=== PATIENT | male | born 1965 | race Caucasian/White ===

== ENCOUNTER 2020-07-10 06:57 | Outpatient (REF) | payer BC, SELFPAY ==
[2020-07-10 11:45] LABS: Hematocrit 42.7 % (42-52); Hemoglobin 14.2 g/dl (14.0-18.0); Mean Corpuscular HGB Conc 33.3 g/dl (31.0-36.0); Mean Corpuscular Hemoglobin 31.1 pg (27.0-33.0); Mean Corpuscular Volume 93.6 fL (80-98); Platelet Count 254 X10*3/uL (160-400); Red Blood Count 4.56 X10*6/uL (4.60-5.80); Red Cell Distribution Width 12.5 % (11.0-16.0); White Blood Count 6.2 X10*3/uL (4.8-10.8)
[2020-07-10 12:27] LABS: Alanine Aminotransferase 21 U/L (0-40); Albumin Level 4.3 g/dL (3.5-5.0); Alkaline Phosphatase 62 U/L (39-117); Anion Gap 14 (12-20); Aspartate Amino Transferase 22 U/L (5-37); Bilirubin Total 0.6 mg/dL (0.0-1.0); Blood Urea Nitrogen 24 mg/dL (9-16); Calcium 9.1 mg/dL (8.4-10.2); Carbon Dioxide 27 mmol/L (22-29); Chloride 105 mmol/L (96-108); Cholesterol 232 mg/dL; Estimated Glomerular Filt Rate > 60; Glucose Fasting 81 mg/dL (60-99); HDL Cholesterol 64 mg/dL; LDL Cholesterol Calculated 152 mg/dl; Potassium 4.5 mmol/L (3.3-5.1); Sodium 141 mmol/L (135-145); Total Protein 6.6 g/dL (6.5-8.0); Triglycerides 81 mg/dL
[2020-07-10 12:28] LABS: Prostate Specific Antigen Scr 2.19 ng/mL (<0.05-4.0)
== END 2020-07-10 06:58 | disposition home or self-care (01) ==
LOC: HO.HMGCLDS 06:57
PROVIDERS: PCP Physician Assistant; Visit Provider Physician Assistant
DX: Z12.5 Encounter for screening for malignant neoplasm of prostate (principal); I10 Essential (primary) hypertension
CPT/HCPCS: 36415; 80053; 80061; 84153; 84443; 85027

== ENCOUNTER 2021-01-09 07:03 | Outpatient (REF) | payer BC, SELFPAY ==
[2021-01-09 11:22] LABS: Hemoglobin 14.3 g/dl (14.0-18.0); Mean Corpuscular HGB Conc 33.3 g/dl (31.0-36.0); Mean Corpuscular Hemoglobin 31.2 pg (27.0-33.0); Mean Corpuscular Volume 93.7 fL (80.0-98.0); Mean Platelet Volume 11.2 fL (9.4-12.4); Platelet Count 282 X10*3/uL (160-400); Red Blood Count 4.59 X10*6/uL (4.60-5.80); Red Cell Distribution Width 12.6 % (11.0-16.0); White Blood Count 6.6 X10*3/uL (4.8-10.8)
[2021-01-09 11:41] LABS: Estimated Average Glucose 105 mg/dL; Hemoglobin A1c % 5.3 %
[2021-01-09 12:10] LABS: Alanine Aminotransferase 22 U/L (0-40); Albumin Level 4.3 g/dL (3.5-5.0); Alkaline Phosphatase 64 U/L (39-117); Anion Gap 14 (12-20); Aspartate Amino Transferase 20 U/L (5-37); Bilirubin Total 0.5 mg/dL (0.0-1.0); Blood Urea Nitrogen 29 mg/dL (9-16); Calcium 9.4 mg/dL (8.4-10.2); Carbon Dioxide 27 mmol/L (22-29); Chloride 104 mmol/L (96-108); Cholesterol 241 mg/dL; Creatinine Urine 112.99 mg/dL; Estimated Glomerular Filt Rate 58; Glucose Fasting 84 mg/dL (60-99); HDL Cholesterol 65 mg/dL; LDL Cholesterol Calculated 159 mg/dl; Microalbumin Urine < 5.0 mg/L; Potassium 4.8 mmol/L (3.3-5.1); Sodium 140 mmol/L (135-145); Total Protein 6.8 g/dL (6.5-8.0); Triglycerides 87 mg/dL
== END 2021-01-09 07:04 | disposition home or self-care (01) ==
LOC: HO.HMGCLDS 07:03
PROVIDERS: PCP Physician Assistant; Visit Provider Physician Assistant
DX: I10 Essential (primary) hypertension (principal)
CPT/HCPCS: 36415; 80053; 80061; 82043; 83036; 85027

== ENCOUNTER 2021-02-07 09:32 | Outpatient (REF) | payer BC, SELFPAY ==
--- NOTE | ~2021-02-07 | MR_ITS ---
EXAMINATION: MR BRAIN WITHOUT AND WITH CONTRAST CLINICAL INFORMATION: Encephalopathy. White matter change. Visual disturbance. COMPARISON: Head CT 09/21/2019. Brain MRI 06/14/2009. TECHNIQUE: Multiplanar, multisequence imaging of the brain was performed before and after the intravenous administration of 9 mL of Gadavist. FINDINGS: There is no acute infarction, mass, hemorrhage, or extra-axial collection. No abnormal or unexpected intracranial enhancement is seen. The ventricles, sulci, and basilar cisterns are normal in size and configuration. No white matter signal abnormality is seen. The posterior fossa structures are unremarkable. No cerebellopontine angle lesion is seen. The flow voids of the major intracranial arteries appear intact. The bones and extracranial soft tissues are within normal limits. MR/MR head/brain wo/w con IMPRESSION: No mass lesion, acute infarction, or abnormal intracranial enhancement.
== END 2021-02-07 09:33 | disposition home or self-care (01) ==
LOC: HO.MRI 09:32
PROVIDERS: PCP Physician Assistant; Visit Provider Psychiatry & Neurology Neurology
DX: G93.40 Encephalopathy, unspecified (principal); G93.49 Other encephalopathy
CPT/HCPCS: 70553; A9585

== ENCOUNTER 2021-03-04 12:42 | Outpatient (REF) | payer BC, SELFPAY ==
[2021-03-04 14:10] LABS: Estimated Average Glucose 108 mg/dL; Hematocrit 42.5 % (42.0-52.0); Hemoglobin 14.4 g/dl (14.0-18.0); Hemoglobin A1c % 5.4 %; Mean Corpuscular HGB Conc 33.9 g/dl (31.0-36.0); Mean Corpuscular Hemoglobin 31.3 pg (27.0-33.0); Mean Corpuscular Volume 92.4 fL (80.0-98.0); Platelet Count 293 X10*3/uL (160-400); Red Cell Distribution Width 12.5 % (11.0-16.0); White Blood Count 6.6 X10*3/uL (4.8-10.8)
[2021-03-04 14:28] LABS: Alanine Aminotransferase 21 U/L (0-40); Albumin Level 4.3 g/dL (3.5-5.0); Alkaline Phosphatase 72 U/L (39-117); Anion Gap 12 (12-20); Aspartate Amino Transferase 19 U/L (5-37); Bilirubin Total 0.6 mg/dL (0.0-1.0); Blood Urea Nitrogen 15 mg/dL (9-16); Calcium 9.7 mg/dL (8.4-10.2); Carbon Dioxide 29 mmol/L (22-29); Chloride 103 mmol/L (96-108); Cholesterol 212 mg/dL; Estimated Glomerular Filt Rate > 60; Glucose Fasting 93 mg/dL (60-99); HDL Cholesterol 58 mg/dL; LDL Cholesterol Calculated 135 mg/dl; Potassium 4.7 mmol/L (3.3-5.1); Sodium 139 mmol/L (135-145); Total Protein 6.8 g/dL (6.5-8.0); Triglycerides 97 mg/dL
[2021-03-04 14:38] LABS: TSH reflex Free T4 1.05 uIU/mL (0.32-4.0)
== END 2021-03-04 12:43 | disposition home or self-care (01) ==
LOC: HO.HMGCX 12:42
PROVIDERS: PCP Physician Assistant; Visit Provider Physician Assistant
DX: I10 Essential (primary) hypertension (principal); K40.90 Unilateral inguinal hernia, without obstruction or gangrene, not specified as recurrent; E78.9 Disorder of lipoprotein metabolism, unspecified
CPT/HCPCS: 36415; 80048; 80053; 80061; 83036; 84443; 85027

== ENCOUNTER → 2021-03-11 13:47 | Outpatient (BNVA) | payer BC, SELFPAY | PROVIDERS: PCP Physician Assistant; Referring Provider Physician Assistant; Visit Provider Surgery ==

== ENCOUNTER 2021-03-22 07:11 | Outpatient (REF) | payer BC, SELFPAY ==
--- NOTE | ~2021-03-22 | CT_ITS ---
EXAMINATION: CT ABDOMEN AND PELVIS WITHOUT CONTRAST CLINICAL INFORMATION: Left lower quadrant pain COMPARISON: Renal ultrasound June 2009 TECHNIQUE: Multidetector volumetric imaging was performed from the superior aspect of the liver through the pubic symphysis. Sagittal and coronal reformatted images were obtained on the technologist's workstation. This CT examination was performed using dose optimization techniques as appropriate, variously including the following: *Automated exposure control *Adjustment of mA and/or kV according to patient size (this includes techniques or standardized protocols for targeted exams where dose is matched to indication/reason for exam; i.e. extremities or head) *Use of iterative reconstruction technique DLP: 462 mGy-cm FINDINGS: LUNG BASES: The visualized lung bases are unremarkable. LIVER, GALLBLADDER, AND BILIARY TREE: The liver is normal in size, shape, and attenuation. No focal hepatic lesion or biliary ductal dilatation is present. The gallbladder is unremarkable with no evidence of radiopaque gallstones, gallbladder wall thickening, or obvious pericholecystic inflammatory changes. PANCREAS: Unremarkable. SPLEEN: Unremarkable. ADRENAL GLANDS: Unremarkable. KIDNEYS AND URETERS: There are 2 left renal cysts versus bilobed cyst in the upper pole. Measured as 2 cysts, these measure 5 cm and 5 x 6 cm. These demonstrate peripheral wall calcification. This measured 8 x 5.4 x 5.8 cm on June 2009 and renal ultrasound and is probably not appreciably changed in size. This is incompletely characterized without IV contrast Again may represent a Bosniak type II cyst. The kidneys are normal in size, shape, and attenuation. No hydronephrosis, hydroureter, or calculi seen. No perinephric stranding. BLADDER: Unremarkable. GASTROINTESTINAL TRACT: There is stool throughout the colon questionable for constipation. The small and large bowel are otherwise unremarkable. The appendix is unremarkable. ABDOMINAL WALL: No significant hernia is appreciated. LYMPH NODES: Normal. VASCULAR: Unremarkable. PELVIC VISCERA: Unremarkable. OSSEOUS STRUCTURES: There are mild degenerative changes of the spine. CT/CT abdomen pelvis wo con IMPRESSION: Two 5 and 5 x 6 cm minimally complex left renal cysts versus a single bilobed cyst. This is incompletely characterized but probably not appreciably changed from June 2009 renal ultrasound. Fleischner guidelines were followed.
== END 2021-03-22 07:12 | disposition home or self-care (01) ==
LOC: HO.CT 07:11
PROVIDERS: Visit Provider Surgery
DX: R10.32 Left lower quadrant pain (principal)
CPT/HCPCS: 74176

== ENCOUNTER → 2021-03-27 10:00 | Outpatient (BNVA) | payer BC, SELFPAY | PROVIDERS: PCP Physician Assistant; Referring Provider Physician Assistant; Visit Provider Surgery ==

== ENCOUNTER 2021-07-23 06:34 | Outpatient (REF) | payer BC, SELFPAY ==
[2021-07-23 11:57] LABS: Hematocrit 41.2 % (42.0-52.0); Hemoglobin 13.7 g/dl (14.0-18.0); Mean Corpuscular HGB Conc 33.3 g/dl (31.0-36.0); Mean Corpuscular Hemoglobin 31.4 pg (27.0-33.0); Mean Corpuscular Volume 94.5 fL (80.0-98.0); Mean Platelet Volume 11.4 fL (9.4-12.4); Platelet Count 243 X10*3/uL (160-400); Red Blood Count 4.36 X10*6/uL (4.60-5.80); Red Cell Distribution Width 12.6 % (11.0-16.0); White Blood Count 5.8 X10*3/uL (4.8-10.8)
[2021-07-23 12:24] LABS: Alanine Aminotransferase 24 U/L (0-40); Albumin Level 4.1 g/dL (3.5-5.0); Alkaline Phosphatase 67 U/L (39-117); Anion Gap 10 (12-20); Aspartate Amino Transferase 22 U/L (5-37); Bilirubin Total 0.4 mg/dL (0.0-1.0); Blood Urea Nitrogen 18 mg/dL (9-16); Calcium 9.5 mg/dL (8.4-10.2); Carbon Dioxide 29 mmol/L (22-29); Chloride 104 mmol/L (96-108); Cholesterol 233 mg/dL; Estimated Glomerular Filt Rate > 60; Glucose Fasting 96 mg/dL (60-99); HDL Cholesterol 68 mg/dL; LDL Cholesterol Calculated 149 mg/dl; Potassium 4.2 mmol/L (3.3-5.1); Sodium 139 mmol/L (135-145); Total Protein 6.4 g/dL (6.5-8.0); Triglycerides 81 mg/dL
[2021-07-23 12:42] LABS: Creatinine Urine 142.02 mg/dL; Microalbumin Urine < 5.0 mg/L
[2021-07-23 12:46] LABS: TSH reflex Free T4 1.95 uIU/mL (0.32-4.0)
== END 2021-07-23 06:35 | disposition home or self-care (01) ==
LOC: HO.HMGCLDS 06:34
PROVIDERS: Visit Provider Physician Assistant
DX: I10 Essential (primary) hypertension (principal)
CPT/HCPCS: 36415; 80053; 80061; 82043; 84443; 85027

== ENCOUNTER 2022-01-14 07:27 | Outpatient (REF) | payer BC, SELFPAY ==
[2022-01-14 11:35] LABS: Hematocrit 43.1 % (42.0-52.0); Hemoglobin 14.2 g/dl (14.0-18.0); Mean Corpuscular HGB Conc 32.9 g/dl (31.0-36.0); Mean Corpuscular Hemoglobin 30.9 pg (27.0-33.0); Mean Corpuscular Volume 93.7 fL (80.0-98.0); Mean Platelet Volume 11.1 fL (9.4-12.4); Platelet Count 271 X10*3/uL (160-400); Red Cell Distribution Width 12.5 % (11.0-16.0); White Blood Count 5.7 X10*3/uL (4.8-10.8)
[2022-01-14 13:49] LABS: Alanine Aminotransferase 26 U/L (0-40); Albumin Level 4.3 g/dL (3.5-5.0); Alkaline Phosphatase 62 U/L (39-117); Anion Gap 9 (12-20); Aspartate Amino Transferase 21 U/L (5-37); Bilirubin Total 0.5 mg/dL (0.0-1.0); Blood Urea Nitrogen 20 mg/dL (9-16); Calcium 9.5 mg/dL (8.4-10.2); Carbon Dioxide 32 mmol/L (22-29); Chloride 104 mmol/L (96-108); Cholesterol 243 mg/dL; Estimated Glomerular Filt Rate > 60; Glucose Fasting 95 mg/dL (60-99); HDL Cholesterol 69 mg/dL; LDL Cholesterol Calculated 162 mg/dl; Potassium 4.4 mmol/L (3.3-5.1); Prostate Specific Antigen Scr 2.08 ng/mL (<0.05-4.0); Sodium 141 mmol/L (135-145); TSH reflex Free T4 2.34 uIU/mL (0.32-4.0); Total Protein 6.5 g/dL (6.5-8.0); Triglycerides 63 mg/dL
== END 2022-01-14 07:28 | disposition home or self-care (01) ==
LOC: HO.HMGCLDS 07:27
PROVIDERS: PCP Physician Assistant; Visit Provider Physician Assistant
DX: Z12.5 Encounter for screening for malignant neoplasm of prostate (principal); I10 Essential (primary) hypertension; E78.9 Disorder of lipoprotein metabolism, unspecified
CPT/HCPCS: 36415; 80053; 80061; 84153; 84443; 85027

== ENCOUNTER 2022-08-26 07:41 | Outpatient (REF) | payer BC, SELFPAY ==
[2022-08-26 11:56] LABS: Hematocrit 43.7 % (42.0-52.0); Hemoglobin 14.3 g/dl (14.0-18.0); Mean Corpuscular HGB Conc 32.7 g/dl (31.0-36.0); Mean Corpuscular Volume 94.6 fL (80.0-98.0); Mean Platelet Volume 11.1 fL (9.4-12.4); Platelet Count 279 X10*3/uL (160-400); Red Blood Count 4.62 X10*6/uL (4.60-5.80); Red Cell Distribution Width 12.6 % (11.0-16.0)
[2022-08-26 12:01] LABS: Creatinine Urine 131.66 mg/dL; Microalbumin Urine < 5.0 mg/L
[2022-08-26 12:28] LABS: Alanine Aminotransferase 29 U/L (0-40); Albumin Level 4.2 g/dL (3.5-5.0); Alkaline Phosphatase 56 U/L (39-117); Anion Gap 10 (12-20); Aspartate Amino Transferase 24 U/L (5-37); Bilirubin Total 0.5 mg/dL (0.0-1.0); Blood Urea Nitrogen 17 mg/dL (9-16); Calcium 9.5 mg/dL (8.4-10.2); Carbon Dioxide 29 mmol/L (22-29); Chloride 105 mmol/L (96-108); Cholesterol 223 mg/dL; Estimated Glomerular Filt Rate > 60; Glucose Fasting 94 mg/dL (60-99); HDL Cholesterol 72 mg/dL; LDL Cholesterol Calculated 132 mg/dl; Potassium 4.1 mmol/L (3.3-5.1); Sodium 140 mmol/L (135-145); TSH reflex Free T4 1.64 uIU/mL (0.32-4.0); Total Protein 6.8 g/dL (6.5-8.0); Triglycerides 95 mg/dL
== END 2022-08-26 07:42 | disposition home or self-care (01) ==
LOC: HO.HMGCLDS 07:41
PROVIDERS: PCP Physician Assistant; Visit Provider Physician Assistant
DX: I10 Essential (primary) hypertension (principal); E78.2 Mixed hyperlipidemia; Z12.5 Encounter for screening for malignant neoplasm of prostate
CPT/HCPCS: 36415; 80053; 80061; 82043; 84153; 84443; 85027

== ENCOUNTER 2022-09-29 07:14 | Outpatient (AMB) | payer BC, SELFPAY ==
--- NOTE | 2022-09-29 07:23 | MHC.PC.OV ---
Vital Signs 09/29/22 07:24 Height 5 ft 10 in Weight 200 lb BMI 28.7 BP 116/68 Blood Pressure Location Lt brachial Position Sitting Pulse 59 Pulse Source Pulse Oximeter Pulse Oximetry (%) 98 Oxygen Delivery Method Room Air Intake Visit Reasons: PHY Allergies penicillin V Allergy (Unknown, Verified 09/29/22 07:43) hives No Known Allergies Allergy (Verified 09/29/22 07:43) Medication List - Last Reconciled 09/29/22 by JENNIFER Fajardo bupropion HCl (Wellbutrin SR) 200 mg PO DAILY 90 days lisinopril 10 mg PO DAILY lorazepam 0.5 mg PO DAILY 4 days propranolol 10 mg PO BID 7 days simvastatin 10 mg PO DAILY 30 days solifenacin 5 mg PO DAILY Tobacco use date assessed: 09/29/22 Dental Screening Dental Screen Date: 09/29/22 Did you have a dental visit in the last 12 months?: Yes Did you have a dental problem in the last 6 months where you did not have access to dental care?: No Was dental information given to patient?: Patient has dentist HPI HPI Comments History of Present Illness Details 57-year-old male past medical history significant for hyperlipidemia, ADD, generalized anxiety disorder, hypertension and spastic bladder. Patient of Aryan Trevino last seen in January. Patient presents today for physical exam. Colonoscopy: Completed May [address] Parekh; showed tubular adenoma. Recommended 5 year follow-up. Due May 2023 Eye exam: 2021 Patient up to date on Recommended immunizations [facility] Medical History Borderline high cholesterol AMEYA (generalized anxiety disorder) HTN (hypertension) Left groin pain Family History Mother Lung cancer Social History (Updated 09/29/22 @ 07:42 by JENNIFER Fajardo) Housing: House Alcohol intake: current Alcohol intake frequency: a few times a week Alcohol type: wine Patient Tobacco Use Status: Never used Tobacco e-Cigarette/Vaping Use: Never Used Second Hand Smoke Exposure: No service: No Current occupational status: employed Current occupation: [employer] Cognitive needs: No Hearing needs: No Vision needs: No Questionnaire PHQ-9 Over the last 2 weeks, how often have you been bothered by any of the following problems? 1. Little interest or pleasure in doing things: not at all 2. Feeling down, depressed, or hopeless: not at all 3. Trouble falling or staying asleep, or sleeping too much: not at all 4. Feeling tired or having little energy: not at all 5. Poor appetite or overeating: not at all 6. Feeling bad about yourself - or that you are a failure or have let yourself or your family down: not at all 7. Trouble concentrating on things, such as reading the newspaper or watching television: not at all 8. Moving or speaking so slowly that other people could have noticed. Or the opposite - being so fidgety or restless that you have been moving around a lot more than usual: not at all 9. Thoughts that you would be better off or of hurting yourself in some way: not at all Total score: 0 Depression Screening Interpretation: Negative 37050 - PHQ-9 Billing: Yes Source: Developed by Drs. Wes Dumont, Ruby Negrete, Axel Watts and colleagues, with an educational fortino from [employer]. Thrive Questionnaire Date Thrive assessed: 09/29/22 I am a: Patient What is your living situation today?: I have a steady place to live Within the past 12 months, did the food you bought not last and you didn't have the money to get more?: Never true Within the past 12 months, did you worry whether your food would run out before you got money to buy more?: Never true Do you have trouble paying for medicines?: No Do you have trouble getting transportation to medical appointments?: No Do you have trouble paying your heating and electricity bill?: No Do you have trouble taking care of your child, family member or friend?: No Do you have trouble with day-to-day activities such as bathing, preparing meals, shopping, managing finances, etc.?: No Are you currently unemployed and looking for a job?: No Are you interested in more education?: No Currently or been in a relationship where the following occur: no concerns reported AUDIT C Alcohol Use Questionnaire (AUDIT-C) 1. How often do you have a drink containing alcohol?: Never Total Score: 0 Score Reviewed/Action Taken: Yes AMEYA-7 AMB Questionnaire AMEYA-7 Date AMEYA - 7 assessed: 09/29/22 Feeling nervous, anxious, or on edge: 0 = Not at all Not being able to stop or control worryin = Not at all Worrying too much about different things: 0 = Not at all Trouble relaxin = Not at all Being so restless that it is hard to sit still: 0 = Not at all Becoming easily annoyed or irritable: 0 = Not at all Feeling afraid as if something awful might happen: 0 = Not at all Total AMEYA-7 score (0-4 normal; 5-9 mild; 10-14 moderate; 15-21 severe): 0 Source: Developed by Drs. Wes Dumont, Ruby Negrete, Axel Watts and colleagues, with an educational fortino from [employer]. AMEYA-7 Assessment Billing AMEYA-7 Assessment Tool: AMEYA-7 Assessment 34472 Review of Systems Const Denies chills, Denies fatigue, Denies fever(s) and Denies poor appetite Eyes Denies no additional complaints ENT Reports Normal hearing present Card Denies chest pain, Denies syncope, Denies rapid heart rate and Denies dyspnea Resp Denies cough and Denies dyspnea GI Denies change in stool character, Denies constipation, Denies diarrhea, Denies nausea and Denies vomiting Denies dysuria, Denies urinary frequency and Denies urinary urgency Neuro Reports Normal hearing present, Denies confusion and Denies syncope Psych Denies confusion Endo Denies fatigue Physical exam (Primary Care) Vital Signs: Last Vital Signs Pulse 59 09/29/22 07:24 BP 116/68 09/29/22 07:24 Pulse Ox 98 09/29/22 07:24 Oxygen Delivery Method Room Air 09/29/22 07:24 BMI result Body Mass Index 28.7 Tobacco/Smoking Status: Tobacco use Status Tobacco use date assessed 09/29/22 09/29/22 07:27 Patient Tobacco Use Status Never used Tobacco 09/29/22 07:27 e-Cigarette/Vaping Use Never Used 09/29/22 07:27 PHQ-9: PHQ-9 Score PHQ-9: Total score 0 09/29/22 07:37 Depression Screening Interpretation: Negative Thrive Assessment: Date of Thrive Assessment Date Thrive assessed 09/29/22 09/29/22 07:27 Currently or been in a relationship where the following occur: no concerns reported Const General: No confusion Orientation/consciousness: No confusion HENMT Head: Yes normocephalic and Yes atraumatic Ears: external ears normal and TM's normal bilaterally General nose exam: Normal external nose present and Normal nasal mucous membranes and turbinates present Face and sinus: Yes normal facial exam and Yes sinuses nontender Mouth: moist mucous membranes Throat: Yes tonsils normal Eyes Conjunctivae: conjunctivae normal Sclerae: sclerae normal Pupils: Equal, round and reactive pupils present and Pupils normal by confrontation EOM: EOMs intact bilaterally Direct Ophthalmoscopy: normal light reflex Neck Neck: Yes no lymphadenopathy and Yes supple Thyroid: Thyroid normal Chest Chest palpation & inspection: normal inspection of the chest Resp Effort & Inspection: normal respiratory effort Auscultation: clear to auscultation bilaterally, no crackles, no rhonchi and no wheezes Cardio Rate: regular rate Rhythm: regular rhythm Peripheral pulses: radial pulses present and dorsalis pedis present GI Inspection: Yes normal to inspection Palpation (GI): Soft to palpation, nontender and No hepatosplenomegaly present Auscultation: normoactive bowel sounds Skin General skin exam: no rashes or lesions noted Neuro General: No confusion Cranial nerves: Yes Equal, round and reactive pupils present and Yes Normal hearing present Cognition (Neuro): normal cognition Gait exam (Neuro): Normal gait present Motor exam (neuro): 5/5 motor strength present throughout Deep tendon reflexes (DTR's): Right brachioradialis reflex intensity grade: 2+, Left brachioradialis reflex intensity grade: 2+, Right patellar reflex intensity grade: 2+ and Left patellar reflex intensity grade: 2+ Extrem General: No edema Assessment and Plan Assessment & Plan (1) Annual physical exam: Code(s): Z00.00 - Encounter for general adult medical examination without abnormal findings Plan: Follow up in 1 year. (2) HLD (hyperlipidemia): Code(s): E78.5 - Hyperlipidemia, unspecified Qualifiers: Hyperlipidemia type: mixed hyperlipidemia Qualified Code(s): E78.2 - Mixed hyperlipidemia Plan: LDL 132, goal < 130. Continue on simvastatin 10mg daily Avoid fried foods, chicken skin, eggs, butter,margarine, pastries and? red meat. (3) AMEYA (generalized anxiety disorder): Code(s): F41.1 - Generalized anxiety disorder Plan: Continue on Wellbutrin 200mg Daily. (4) HTN (hypertension): Code(s): I10 - Essential (primary) hypertension Qualifiers: Hypertension type: essential hypertension Qualified Code(s): I10 - Essential (primary) hypertension Plan: Continue on lisinopril 10mg daily. Blood pressure below goal today 116/68. Follow low salt diet and excercise. (5) Spastic bladder: Code(s): N32.89 - Other specified disorders of bladder Plan: Continue on Solifenacin. Plan Follow up in 3 months Coding Level of Care Code Est Pt Prev Care 40-64y(27844) Diagnoses Annual physical exam Z00.00 HLD (hyperlipidemia) E78.2 Hyperlipidemia type: mixed hyperlipidemia AMEYA (generalized anxiety disorder) F41.1 HTN (hypertension) I10 Hypertension type: essential hypertension Spastic bladder N32.89 Additional Codes MAEYA-7 Assessment Billing - AMEYA-7 Assessment Tool: AMEYA-7 Assessment [id number] ([id number])
[2022-09-29 07:24] VITALS: BP 116/68; PULSE 59; O2SAT 98; BMI 28.7
== END 2022-09-29 07:54 | disposition home or self-care (01) ==
PROVIDERS: PCP Physician Assistant; Visit Provider Nurse Practitioner Family
DX: Z00.00 Encounter for general adult medical examination without abnormal findings (principal); E78.2 Mixed hyperlipidemia; F41.1 Generalized anxiety disorder; I10 Essential (primary) hypertension; N32.89 Other specified disorders of bladder
CPT/HCPCS: 99396

== ENCOUNTER 2022-12-29 06:34 | Outpatient (REF) | payer BC, SELFPAY ==
[2022-12-29 11:36] LABS: Hematocrit 43.4 % (42.0-52.0); Hemoglobin 14.3 g/dl (14.0-18.0); Mean Corpuscular HGB Conc 32.9 g/dl (31.0-36.0); Mean Corpuscular Volume 94.1 fL (80.0-98.0); Mean Platelet Volume 11.3 fL (9.4-12.4); Platelet Count 254 X10*3/uL (160-400); Red Blood Count 4.61 X10*6/uL (4.60-5.80); Red Cell Distribution Width 12.5 % (11.0-16.0); White Blood Count 5.9 X10*3/uL (4.8-10.8)
[2022-12-29 12:07] LABS: Creatinine Urine 112.06 mg/dL; Microalbumin Urine < 5.0 mg/L
[2022-12-29 12:33] LABS: Alanine Aminotransferase 30 U/L (0-40); Albumin Level 4.1 g/dL (3.5-5.0); Alkaline Phosphatase 62 U/L (39-117); Anion Gap 10 (12-20); Aspartate Amino Transferase 26 U/L (5-37); Bilirubin Total 0.5 mg/dL (0.0-1.0); Blood Urea Nitrogen 24 mg/dL (9-16); Calcium 9.3 mg/dL (8.4-10.2); Carbon Dioxide 28 mmol/L (22-29); Chloride 105 mmol/L (96-108); Cholesterol 193 mg/dL (<200); Estimated Glomerular Filt Rate > 60; Glucose Fasting 98 mg/dL (60-99); HDL Cholesterol 71 mg/dL (>40); LDL Cholesterol Calculated 107 mg/dL (<100); Potassium 4.4 mmol/L (3.3-5.1); Sodium 139 mmol/L (135-145); Total Protein 6.6 g/dL (6.5-8.0); Triglycerides 77 mg/dL (<150)
== END 2022-12-29 06:35 | disposition home or self-care (01) ==
LOC: HO.HMGCLDS 06:34
PROVIDERS: PCP Physician Assistant; Visit Provider Physician Assistant
DX: I10 Essential (primary) hypertension (principal); E78.2 Mixed hyperlipidemia
CPT/HCPCS: 36415; 80053; 80061; 82043; 82570; 85027

== ENCOUNTER 2022-12-31 07:57 | Outpatient (AMB) | payer BC, SELFPAY ==
[2022-12-31 08:10] VITALS: BP 116/80; PULSE 59; O2SAT 97; BMI 29.0
--- NOTE | 2022-12-31 08:10 | A.OFFPC_ITS ---
Vital Signs 12/31/22 08:10 Height 5 ft 10 in Weight 202 lb BMI 29.0 BP 116/80 Blood Pressure Location Lt brachial Position Sitting Pulse 59 Pulse Source Pulse Oximeter Pulse Oximetry (%) 97 Oxygen Delivery Method Room Air Intake Visit Reasons: HLD, HTN, Anxiety Strategy Consultant Required: No Accompanied by: Self / Same As Patient Allergies penicillin V Allergy (Unknown, Verified 12/31/22 08:27) hives No Known Allergies Allergy (Verified 12/31/22 08:27) Medication List - Last Reconciled 12/31/22 by Vignesh Trevino PA-C bupropion HCl (Wellbutrin SR) 200 mg PO DAILY 90 days lisinopril 10 mg PO DAILY lorazepam 0.5 mg PO DAILY 4 days propranolol 10 mg PO BID 7 days simvastatin 10 mg PO DAILY 30 days solifenacin 5 mg PO DAILY Tobacco use date assessed: 12/31/22 Dental Screening Dental Screen Date: 12/31/22 Did you have a dental visit in the last 12 months?: Yes Did you have a dental problem in the last 6 months where you did not have access to dental care?: No Was dental information given to patient?: Patient has dentist HPI HLD, HTN, Anxiety HPI Details Patient is a 57 year male here today for a follow-up visit.? Patient has a past history significant for hypertension , spastic bladder, generalized anxiety disorder. .. Hypertension:? Blood pressure today in office acceptable.? Continues on lisinopril 10 mg with good effect. .. Hyperlipidemia :? Has recently been started on simvastatin. Most recent labs showing much improved total cholesterol and LDL..? Patient reports he has been working on restrict his cholesterol in his diet. .. Anxiety/ adhd:? He reports he does not feel Wellbutrin is helpful for anxiety and ADHD. 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 He plans on weaning off of Wellbutrin. Was on Adderall in the past which was more helpful for his attention focus. Willing to restart low-dose 5 mg extended release Adderall to help him with his attention focus. .. Spastic bladder:? Has been stable with the use of solifenacin daily. Bladder spasms worsen with certain beverages. Laboratory Tests 08/26/22 08/26/22 12/29/22 07:44 07:44 06:56 RBC 4.61 Creatinine 1.13 Cholesterol 223 LDL Cholesterol, C alc 132 107 H Urine Microalbumin 12/29/22 12/29/22 06:56 06:56 RBC Creatinine Cholesterol 193 LDL Cholesterol, C alc Urine Microalbumin < 5.0 PFSH Medical History Borderline high cholesterol AMEYA (generalized anxiety disorder) HTN (hypertension) Left groin pain Family History Mother Lung cancer Housing: House Alcohol intake: current Alcohol intake frequency: a few times a week Alcohol type: wine Patient Tobacco Use Status: Never used Tobacco e-Cigarette/Vaping Use: Never Used Second Hand Smoke Exposure: No service: No Current occupational status: employed Current occupation: [employer] Cognitive needs: No Hearing needs: No Vision needs: No Questionnaire PHQ-9 Over the last 2 weeks, how often have you been bothered by any of the following problems? 1. Little interest or pleasure in doing things: not at all 2. Feeling down, depressed, or hopeless: not at all 3. Trouble falling or staying asleep, or sleeping too much: not at all 4. Feeling tired or having little energy: not at all 5. Poor appetite or overeating: not at all 6. Feeling bad about yourself - or that you are a failure or have let yourself or your family down: not at all 7. Trouble concentrating on things, such as reading the newspaper or watching te levision: not at all 8. Moving or speaking so slowly that other people could have noticed. Or the opposite - being so fidgety or restless that you have been moving around a lot more than usual: not at all 9. Thoughts that you would be better off or of hurting yourself in some way: not at all Total score: 0 Depression Screening Interpretation: Negative Depression Screening Done: Yes 23755 - PHQ-9 Billing: Yes Source: Developed by Drs. Wes Dumont, Ruby Negrete, Axel Watts and colleagues, with an educational fortino from [employer]. Thrive Questionnaire Date Thrive assessed: 12/31/22 I am a: Patient What is your living situation today?: I have a steady place to live Within the past 12 months, did the food you bought not last and you didn't have the money to get more?: Never true Within the past 12 months, did you worry whether your food would run out before you got money to buy more?: Never true Do you have trouble paying for medicines?: No Do you have trouble getting transportation to medical appointments?: No Do you have trouble paying your heating and electricity bill?: No Do you have trouble taking care of your child, family member or friend?: No Do you have trouble with day-to-day activities such as bathing, preparing meals, shopping, managing finances, etc.?: No Are you currently unemployed and looking for a job?: No Are you interested in more education?: No Please select the resources that you would like help with: None Currently or been in a relationship where the following occur: no concerns reported AUDIT C Alcohol Use Questionnaire (AUDIT-C) 1. How often do you have a drink containing alcohol?: Never Total Score: 0 Score Reviewed/Action Taken: Yes AMEYA-7 AMB Questionnaire AMEYA-7 Date AMEYA - 7 assessed: 12/31/22 Feeling nervous, anxious, or on edge: 0 = Not at all Not being able to stop or control worryin = Not at all Worrying too much about different things: 0 = Not at all Trouble relaxin = Not at all Being so restless that it is hard to sit still: 0 = Not at all Becoming easily annoyed or irritable: 0 = Not at all Feeling afraid as if something awful might happen: 0 = Not at all Total AMEYA-7 score (0-4 normal; 5-9 mild; 10-14 moderate; 15-21 severe): 0 Source: Developed by Drs. Wes Dumont, Ruby Negrete, Axel Watts and colleagues, with an educational fortino from [employer]. AMEYA-7 Assessment Billing AMEYA-7 Assessment Tool: AMEYA-7 Assessment 39827 Review of Systems Const Denies headache(s) Eyes Denies loss of vision ENT Denies vertigo, Denies dizziness, Denies headache(s) and Denies sore throat Card Denies chest pain, Denies leg edema and Denies lightheadedness Resp Denies cough, Denies hemoptysis and Denies wheezing GI Denies abdominal pain, Denies melena, Denies constipation, Denies diarrhea and Denies vomiting Denies dysuria, Denies urinary frequency and Denies urinary urgency Musc Denies arthralgias, Denies joint swelling, Denies numbness and Denies tingling Neuro Denies Abnormal speech present, Denies behavioral changes, Denies vertigo, Denies dizziness, Denies headache(s), Denies loss of vision, Denies memory loss, Denies numbness and Denies tingling Psych Denies anxiety, Denies behavioral changes, Denies depression, Denies memory loss and Denies panic attacks Prieto/Lymph Denies easy bleeding and Denies easy bruising Aller/Immun Denies wheezing Physical exam (Primary Care) Vital Signs: Last Vital Signs Pulse 59 12/31/22 08:10 BP 116/80 12/31/22 08:10 Pulse Ox 97 12/31/22 08:10 Oxygen Delivery Method Room Air 12/31/22 08:10 BMI result Body Mass Index 29.0 Tobacco/Smoking Status: Tobacco use Status Tobacco use date assessed 12/31/22 12/31/22 08:17 Patient Tobacco Use Status Never used Tobacco 12/31/22 08:11 e-Cigarette/Vaping Use Never Used 12/31/22 08:11 PHQ-9: PHQ-9 Score PHQ-9: Total score 0 12/31/22 08:29 Depression Screening Interpretation: Negative Thrive Assessment: Date of Thrive Assessment Date Thrive assessed 12/31/22 12/31/22 08:17 Currently or been in a relationship where the following occur: no concerns reported Const General: healthy appearing, no acute distress, alert and awake Nutritional Appearance: well nourished Orientation/consciousness: oriented to person, oriented to place and oriented to time HENMT Ears: TM's normal bilaterally General nose exam: Normal nasal mucous membranes and turbinates present Eyes Conjunctivae: conjunctivae normal Sclerae: sclerae normal Pupils: Equal, round and reactive pupils present Neck Neck: Yes no lymphadenopathy and Yes no JVD Thyroid: Thyroid normal Carotids: no bruits Resp Effort & Inspection: normal respiratory effort and not tachypneic Auscultation: no crackles, no rales, no rhonchi and no wheezes Cardio Rate: regular rate Rhythm: regular rhythm Heart sounds: no murmurs and normal S1 and S2 GI Palpation (GI): Soft to palpation, nontender, no hepatomegaly and no splenomegaly Auscultation: normal bowel sounds Skin General skin exam: no rashes or lesions noted and dry skin Neuro General: oriented to person, oriented to place and oriented to time Cranial nerves: Yes Equal, round and reactive pupils present Speech: No Abnormal speech present Gait exam (Neuro): Normal gait present Motor exam (neuro): no tremor noted Extrem Right upper extremity: full ROM Left upper extremity: full ROM Right lower extremity: full ROM; no edema Left lower extremity: full ROM; no edema Psych Mental Status: mental status grossly normal Speech and movement: Normal speech and movement present Affect: normal affect Attitude: cooperative Thought process: Normal thought process present Assessment and Plan Assessment & Plan (1) ADD (attention deficit disorder): Code(s): F98.8 - Other specified behavioral and emotional disorders with onset usually occurring in childhood and adolescence Qualifiers: Attention deficit-hyperactivity disorder type: predominantly inattentive Hyperactivity presence: present Qualified Code(s): F90.0 - Attention-deficit hyperactivity disorder, predominantly inattentive type Plan: His family reports they do not feel that Wellbutrin has been helpful for his anxiety and ADHD. Interested in returning to stimulant medication to help him with his attention focus. Logan less anxious on this medication. 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 (2) HTN (hypertension): Code(s): I10 - Essential (primary) hypertension Qualifiers: Hypertension type: essential hypertension Qualified Code(s): I10 - Essential (primary) hypertension Plan: Blood pressure acceptable today in office will continue current dose lisinopril 10 mg. Goal blood pressure to be below 140/90 (3) HLD (hyperlipidemia): Code(s): E78.5 - Hyperlipidemia, unspecified Qualifiers: Hyperlipidemia type: mixed hyperlipidemia Qualified Code(s): E78.2 - Mixed hyperlipidemia Plan: Patient's most recent lipid panel showing much improved total cholesterol and LDL. Continues on simvastatin without any side effect. Will continue on statin therapy with goal LDL to remain below 130 (4) Colon cancer screening: Code(s): Z12.11 - Encounter for screening for malignant neoplasm of colon Plan: Needs repeat colonoscopy in 2023. Will refer back to Dr. Parekh for repeat colonoscopy Orders: Orders Complete Blood Count no Diff Today I10 - Essential (primary) hypertension Lipid Panel Today E78.2 - Mixed hyperlipidemia Microalbumin, Random (w Creat) Today I10 - Essential (primary) hypertension Comprehensive [place]. Panel Fast Today I10 - Essential (primary) hypertension Referrals Gastroenterology Referral Z12.11 - Encounter for screening for malignant neoplasm of colon Medications: New dextroamphetamine-amphetamine 5 mg ER (Adderall XR) Partial Fill upon patient request. 5 mg PO DAILY 28 days 28 caps 0RF F90.0 - Attention-deficit hyperactivity disorder, predominantly inattentive type Coding Level of Care Code Est Pt Level 4 (28144) Diagnoses Attention deficit hyperactivity disorder (ADHD), predominantly inattentive type F90.0 Attention deficit-hyperactivity disorder type: predominantly inattentive Hyperactivity presence: present Essential hypertension I10 Hypertension type: essential hypertension Mixed hyperlipidemia E78.2 Hyperlipidemia type: mixed hyperlipidemia Colon cancer screening Z12.11 Additional Codes AMEYA-7 Assessment Billing - AMEYA-7 Assessment Tool: AMEYA-7 Assessment 41693 ([id number])
== END 2022-12-31 08:50 | disposition home or self-care (01) ==
PROVIDERS: PCP Physician Assistant; Visit Provider Physician Assistant
DX: I10 Essential (primary) hypertension (principal); F90.0 Attention-deficit hyperactivity disorder, predominantly inattentive type; E78.2 Mixed hyperlipidemia; Z12.11 Encounter for screening for malignant neoplasm of colon
CPT/HCPCS: 99214

== ENCOUNTER 2023-03-28 12:34 | Emergency (ER) | payer BC, SELFPAY ==
--- NOTE | ~2023-03-28 | XR_ITS ---
EXAMINATION: XR ANKLE, LEFT CLINICAL INFORMATION: Trauma COMPARISON: None available. TECHNIQUE: AP, lateral, and mortise views of the left ankle. FINDINGS: Bone alignment is normal. There is a small ossification adjacent to the lateral talus questionable for avulsion fracture. Clinical correlation recommended. No other evidence of fracture. Normal ankle mortise. Normal soft tissues. XR/XR ankle LT 2V IMPRESSION: Question avulsion fracture of the lateral talus. No other evidence of fracture or dislocation.
--- NOTE | ~2023-03-28 | US_ITS ---
Exam: Ultrasound ankle. HISTORY: Questioned Achilles tendon injury. FINDINGS: Submitted study demonstrates heterogeneous increased echogenicity and distortion of the distal Achilles tendon. Appearance is consistent with Achilles injury of uncertain severity. At least a high-grade partial injury suspected. Recommend MRI for further assessment. US/US extremity nonvascular aragon IMPRESSION: Findings as above. Recommend MRI for further assessment. High-grade injury present.
[2023-03-28 12:49] VITALS: BP 120/60; PULSE 66; RESP 16; TEMP 36.6; O2SAT 99; BMI 29.7
--- NOTE | 2023-03-28 12:56 | ED.LOWEXIN ---
HPI - Extremity Injury (Lower) General Chief Complaint: Extremity Injury, Lower Stated Complaint: ankle inj Time Seen by Provider: 03/28/23 12:42 Source: patient and family Mode of arrival: wheelchair Limitations: no limitations History of Present Illness HPI Narrative: 57-year-old male who presents the ER with complaints of left posterior ankle pain. Patient reports he was playing pickleball when he pushed off suddenly feeling pain in the posterior left ankle. He reports unable to bear weight since injury. No associated numbness or tingling. Related Data Previous Rx's Medication Instructions Recorded lorazepam 0.5 mg tablet 0.5 mg PO DAILY anxiety 4 days #4 06/05/22 tabs solifenacin 5 mg tablet 5 mg PO DAILY #90 tabs 08/22/22 propranolol 10 mg tablet 10 mg PO BID 7 days #14 tabs 12/29/22 dextroamphetamine-amphetamine ER 5 5 mg PO DAILY 28 days #28 caps 12/31/22 mg 24hr capsule,extend release (Adderall XR) lisinopril 10 mg tablet 10 mg PO DAILY #90 tabs 01/24/23 bupropion HCl 200 mg tablet,12 hr 200 mg PO DAILY 90 days #90 tabs 01/26/23 sustained-release (Wellbutrin SR) simvastatin 10 mg tablet 10 mg PO DAILY 30 days #30 tabs 03/17/23 ibuprofen 800 mg tablet 800 mg PO Q8H PRN pain #60 tabs 03/28/23 Allergies Allergy/AdvReac Type Severity Reaction Status Date / Time penicillin V Allergy Unknown hives Verified 12/31/22 08:27 No Known Allergies Allergy Verified 12/31/22 08:27 Review of Systems Review of Systems: Yes all other systems are reviewed and are negative Constitutional: Constitutional: Reports no additional constitutional complaints, Denies body ache(s), Denies chills, Denies fever(s), Denies headache(s) and Denies weakness Eyes: Eyes: Reports no additional eye complaints and Denies change in vision ENT: Reports system reviewed and no additional complaints, except as documented, Denies dizziness, Denies headache(s), Denies nasal congestion, Denies nasal discharge and Denies neck pain Cardiovascular: Cardiovascular: Reports no additional cardiovascular complaints, Denies chest pain, Denies leg edema and Denies dyspnea Respiratory: Respiratory: Reports no additional respiratory complaints, Denies cough and Denies dyspnea Gastrointestinal: Gastrointestinal: Reports no additional gastrointestinal complaints, Denies abdominal pain, Denies diarrhea, Denies nausea and Denies vomiting Genitourinary: Genitourinary: Denies urinary incontinence Musculoskeletal: Musculoskeletal: Reports no additional musculoskeletal complaints, Denies back pain, Reports arthralgias, Reports joint swelling, Denies limited range of motion, Denies neck pain, Denies numbness and Denies tingling Integumentary/Breasts: Skin/Breast: Reports system reviewed and no additional complaints, except as docu and Denies rash Neurologic: Reports system reviewed and no additional complaints, except as documented, Denies Abnormal speech present, Denies dizziness, Denies headache(s), Denies numbness, Denies tingling and Denies weakness PMFSH Past Medical History Attestation statement: The following information was validated with the patient. Source: old records reviewed and nursing notes reviewed Medical History Left groin pain AMEYA (generalized anxiety disorder) Borderline high cholesterol HTN (hypertension) Family History Family History Mother Lung cancer Social History Social History Housing: House Alcohol intake: current Alcohol intake frequency: a few times a week Alcohol type: wine Patient Tobacco Use Status: Never used Tobacco e-Cigarette/Vaping Use: Never Used Second Hand Smoke Exposure: No Advance Directives: No Advance Directives Information Provided: No service: No Current occupational status: employed Current occupation: [employer] Cognitive needs: No Hearing needs: No Vision needs: No Physical Exam Vital Signs: Vital Signs: Last Vital Signs Temp 97.8 F 03/28/23 12:49 Pulse 66 03/28/23 12:49 Resp 16 03/28/23 12:49 BP 120/60 03/28/23 12:49 Pulse Ox 99 03/28/23 12:49 O2 Del Method Room Air 03/28/23 12:49 BMI result Body Mass Index 29.7 Const: General: cooperative, healthy appearing, comfortable and no acute distress Orientation/consciousness: patient oriented x3 Limitations: no limitations HEENT: Head: Yes normal to inspection Ears: hearing grossly normal bilaterally General nose exam: Normal external nose present Face and sinus: Yes normal facial exam Mouth: Normal oral and palatal mucosa present Throat: Yes posterior oropharynx normal Eyes: General: appearance normal, both eyes and all related structures Pupils: Equal, round and reactive pupils present Neck: Neck: Yes normal visual inspection Chest: Chest palpation & inspection: normal inspection of the chest Resp: Effort & Inspection: normal respiratory effort Auscultation: clear to auscultation bilaterally Cardio: Rate: regular rate Rhythm: regular rhythm Peripheral pulses: Peripheral pulses 2+ throughout GI: Inspection: Yes normal to inspection Palpation (GI): Soft to palpation and nontender Auscultation: normal bowel sounds Back/Spine/Pelvis: Thoracic/Lumbar Spine: thoracic and lumbar spine normal to inspection Skin: General skin exam: no rashes or lesions noted Neuro: General: patient oriented x3, no focal motor deficits and normal sensation to monofilament Cranial nerves: Yes Equal, round and reactive pupils present Cognition (Neuro): normal cognition Speech: No Abnormal speech present Gait exam (Neuro): Normal gait present Motor exam (neuro): 5/5 motor strength present throughout Extrem: Other: There is tenderness on palpation over the left posterior ankle with swelling and ecchymosis. There is no calf pain, knee pain, foot pain on exam. No pain on palpation over the anterior, lateral or medial ankle. There are normal DP and PT pulses. Normal sensation. Patient has difficulty with plantar flexion. he is able to dorsiflex. He has a positive Lazaro sign on exam. General: Yes normal to inspection Course Course Course Narrative: x-ray concerning for avulsion fracture of the talus. Ultrasound is concerning for a Achilles tendon injury unable to assess severity. Will need outpatient MRI. See discussion with Orthopedics. Reviewed findings with patient and family. Patient was placed in a posterior splint with plantar flexion and given crutches for home. Reviewed worrisome signs and symptoms of when to return to the emergency room. Comfortable plan for discharge home. Medications Administered Discontinued Medications Generic Name Dose Route Start Last Admin Trade Name Freq PRN Reason Stop Dose Admin Ibuprofen 600 mg 03/28/23 12:47 03/28/23 13:01 Ibuprofen 600 Mg Tablet PO 03/28/23 12:48 600 mg ONCE ONE Administration Medical Decision Making Medical Decision Making [facility] Narrative: 57-year-old male who presents the ER with complaints of left posterior ankle pain. Patient reports he was playing pickleball when he pushed off suddenly feeling pain in the posterior left ankle. He reports unable to bear weight since injury. No associated numbness or tingling. There is tenderness on palpation over the left posterior ankle with swelling and ecchymosis. There is no calf pain, knee pain, foot pain on exam. No pain on palpation over the anterior, lateral or medial ankle. There are normal DP and PT pulses. Normal sensation. Patient has difficulty with plantar flexion. he is able to dorsiflex. He has a positive Lazaro sign on exam. Concern for Achilles tendon rupture will obtain x-rays, ultrasound, provide analgesia Differential Diagnosis Differential Diagnoses: The differential diagnosis associated with the presentation includes Achilles tendon rupture, fracture, strain, sprain, dislocated low concern for vascular injury Admission/Observation Consideration of admission/observation: Escalation of care including admission/observation considered Low suspicion for complex fracture, dislocation or vascular injury requiring CT imaging. 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 Independent Interpretation I performed an independent interpretation of an: Plain X-Ray and Ultrasound Interpretation: I INDEPENDENTLY REVIEWED THE X-RAY AND THE ULTRASOUND AND AGREE WITH THE RADIOLOGY REPORT Radiology Impression Discussion of test interpretation with radiology: I have reviewed the radiologist's reading. Radiologist Impression: [address] [address] Ultrasound Report Signed Patient: Wes Berrios Jr MR#: [id number] : 1965 Acct:[id number] Age/Sex: 57 / M ADM Date: 03/28/23 Loc: HO.ED Attending Dr: Ordering Physician: Joceline Damon NP Date of Service: 03/28/23 Procedure(s): US extremity nonvascular aragon Accession Number(s): [id number] cc: Vignesh Trevino PA-C; Joceline Damon NP~ Exam: Ultrasound ankle. HISTORY: Questioned Achilles tendon injury. FINDINGS: Submitted study demonstrates heterogeneous increased echogenicity and distortion of the distal Achilles tendon. Appearance is consistent with Achilles injury of uncertain severity. At least a high-grade partial injury suspected. Recommend MRI for further assessment. US/US extremity nonvascular aragon IMPRESSION: Findings as above. Recommend MRI for further assessment. High-grade injury present. [address] [address] XRay Report Signed Patient: Wes Berrios Jr MR#: [id number] : 1965 Acct:[id number] Age/Sex: 57 / M ADM Date: 03/28/23 Loc: HO.ED Attending Dr: Ordering Physician: Joceline Damon NP Date of Service: 03/28/23 Procedure(s): XR ankle LT 2V Accession Number(s): [id number] cc: Vignesh Trevino PA-C; Joceline Damon NP~ EXAMINATION: XR ANKLE, LEFT CLINICAL INFORMATION: Trauma COMPARISON: None available. TECHNIQUE: AP, lateral, and mortise views of the left ankle. FINDINGS: Bone alignment is normal. There is a small ossification adjacent to the lateral talus questionable for avulsion fracture. Clinical correlation recommended. No other evidence of fracture. Normal ankle mortise. Normal soft tissues. XR/XR ankle LT 2V IMPRESSION: Question avulsion fracture of the lateral talus. No other evidence of fracture or dislocation. Independent Historian Clinical information obtained from an independent historian. History obtained from or confirmed by: Spouse Tests considered The following testing was considered but not selected: see discussion above Prescription Management I considered prescription management with: Pain Medication Procedures Orthopedic Splinting/Casting Injury #1: Side: left Lower Extremity Injury Location: ankle Lower Extremity Immobilizer: posterior splint Other Orthopedic Equipment: crutches Additional Comments: placed in plantar flexion Discharge Plan Discharge Clinical Impression: Achilles tendon injury, Avulsion fracture of talus Patient Disposition: Home, Self-Care Instructions: Achilles Tendon Rupture (ED), Talar Fracture in Adults (ED), Splint Care (ED), Avulsion Fracture (ED) Additional Instructions: keep the splint clean and dry. Use the crutches for weight-bearing Elevate the leg Take ibuprofen 3 times daily to help with pain Orthopedics will call you Thursday to set up your appointment. If you do not hear from them by around noon please call to set up your appointment. Prescriptions: New ibuprofen 800 mg tablet 800 mg PO Q8H PRN (Reason: pain) Qty: 60 0RF No Action lorazepam 0.5 mg tablet 0.5 mg PO DAILY 4 Days Qty: 4 0RF solifenacin 5 mg tablet 5 mg PO DAILY Qty: 90 2RF propranolol 10 mg tablet 10 mg PO BID 7 Days Qty: 14 0RF lisinopril 10 mg tablet 10 mg PO DAILY Qty: 90 1RF bupropion HCl [Wellbutrin SR] 200 mg tablet sustained-release 12 hr 200 mg PO DAILY 90 Days Qty: 90 0RF simvastatin 10 mg tablet 10 mg PO DAILY 30 Days Qty: 30 3RF dextroamphetamine-amphetamine [Adderall XR] 5 mg capsule,extended release 24hr 5 mg PO DAILY 28 Days Qty: 28 0RF Rx Instructions: Partial Fill upon patient request. Referrals: [facility] [Provider Group] - 5 days
[2023-03-28] MEDS: Ibuprofen 600 MG TABLET PO (13:01)
== END 2023-03-28 16:07 | disposition home or self-care (01) ==
PROVIDERS: Emergency Provider Internal Medicine; PCP Physician Assistant
DX: S86.002A Unspecified injury of left Achilles tendon, initial encounter (principal); X50.1XXA Overexertion from prolonged static or awkward postures, initial encounter; I10 Essential (primary) hypertension; E78.5 Hyperlipidemia, unspecified; Z79.899 Other long term (current) drug therapy; Z79.02 Long term (current) use of antithrombotics/antiplatelets; Y93.73 Activity, racquet and hand sports; Y92.312 Tennis court as the place of occurrence of the external cause; Y99.9 Unspecified external cause status
CPT/HCPCS: 29515; 73600; 76882; 99283; 99284

== ENCOUNTER 2023-03-31 13:33 | Outpatient (AMB) | payer BC, SELFPAY ==
--- NOTE | 2023-03-31 13:38 | MHC.OFFVIS ---
Intake Vital Signs 03/31/23 13:43 Height 5 ft 10 in Weight 207 lb BMI 29.7 Intake Visit Reasons: FC - left ankle fx, DOI 03/28/23 Intake Note: Wes is a 57 year old male who presents today for a evaluation of his left ankle fx, DOI 03/28/23. Patient reports he was playing pickleball and when he took a step he fell down to the grown. He states that he gets a burning sensation on his foot at night. Denies numbness. Allergies penicillin V Allergy (Unknown, Verified 03/31/23 13:41) hives No Known Allergies Allergy (Verified 12/31/22 08:27) HPI FC - left ankle fx, DOI 03/28/23 HPI Details 57-year-old male who presents in the office today, as a new patient, for an evaluation of left ankle pain. The patient presented to the ED on 03/28/2023 with a complaint of left posterior ankle pain status post playing pickleball when he pushed off the ground and suddenly felt pain. X-rays and ultrasound were obtained. He was placed in a posterior splint with crutches. While in the office today he reports while he was playing pickleball he took a step and fell to the ground. He claims to have a burning sensation in the foot at night. He denies numbness. Patient has an allergy history, as follows: -Penicillin; Hives Patient is currently taking, as follows: -Bupropion HCI 200 mg PO daily -Dextroamphetamine-amphetamine ER 5 mg PO daily -Ibuprofen 800 mg PO Q8H PRN -Lisinopril 10 mg PO daily -Lorazepam 0.5 mg PO daily -Propranolol 10 mg PO BID -Simvastatin 10 mg PO daily -Solifenacin 5 mg PO daily Patient has a medical history, as follows: -AMEYA (generalized anxiety disorder) -Hyperlipidemia -HTN (hypertension) -ADD -Spastic bladder Patient has no known surgical history. 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[employer]- [employer] Cognitive needs: No Hearing needs: No Vision needs: No Review of Systems Const All systems reviewed & are unremarkable except as noted in HPI and below Physical Exam Vital Signs: BMI result Body Mass Index 29.7 Const General: cooperative and no acute distress Orientation/consciousness: patient oriented x3 HEENT Head: Yes normal to inspection, Yes normocephalic and Yes atraumatic Eyes General: appearance normal, both eyes and all related structures Neck Neck: Yes normal visual inspection and Yes no lymphadenopathy Resp Effort & Inspection: normal respiratory effort and able to speak in complete sentences Cardio Rate: regular rate Peripheral pulses: Peripheral pulses 2+ throughout GI Inspection: Yes normal to inspection Palpation (GI): Soft to palpation Skin General skin exam: no rashes or lesions noted Neuro General: patient oriented x3 Extrem Other: Left ankle: Resolving ecchymosis over the achilles tendon insertion. Palpable defect. Positive Lazaro?s. Sensation intact. Pedal pulse intact. Psych Mental Status: mental status grossly normal Assessment & Plan Assessment & Plan (1) Rupture of left Achilles tendon: Code(s): S86.012A - Strain of left Achilles tendon, initial encounter Qualifiers: Encounter type: initial encounter Qualified Code(s): S86.012A - Strain of left Achilles tendon, initial encounter Plan Mr. Berrios is a 57-year-old male who presents in the office today, as a new patient, for an evaluation of left ankle pain. The patient presented to the ED on 03/28/2023 with a complaint of left posterior ankle pain status post playing pickleball when he pushed off the ground and suddenly felt pain. X-rays and ultrasound were obtained. He was placed in a posterior splint with crutches. While in the office today he reports while he was playing pickleball he took a step and fell to the ground. He claims to have a burning sensation in the foot at night. He denies numbness. Patient has an allergy history, as follows: -Penicillin; Hives Patient is currently taking, as follows: -Bupropion HCI 200 mg PO daily -Dextroamphetamine-amphetamine ER 5 mg PO daily -Ibuprofen 800 mg PO Q8H PRN -Lisinopril 10 mg PO daily -Lorazepam 0.5 mg PO daily -Propranolol 10 mg PO BID -Simvastatin 10 mg PO daily -Solifenacin 5 mg PO daily Patient has a medical history, as follows: -AMEYA (generalized anxiety disorder) -Hyperlipidemia -HTN (hypertension) -ADD -Spastic bladder Patient has no known surgical history. 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[employer] I discussed in detail the procedure and what to expect pre and post operatively. We discussed the risks, benefits and alternatives to the surgery as well as the rehabilitation course. The risks; which include, but are not limited to infection, bleeding, nerve injury, ongoing pain, swelling, and stiffness, perioperative risk of injury to bones and soft tissues, and blood clots. I have answered all questions and with their understanding they have consented to move forward with a left achilles tendon repair to be performed by Dr. Kartik Aguayo. Follow up will be at the post operative appointment, or sooner if needed. Ultrasound of the left lower extremity, obtained on 03/28/2023, revealed: Submitted study demonstrates heterogeneous increased echogenicity and distortion of the distal Achilles tendon. Appearance is consistent with Achilles injury of uncertain severity. At least a high-grade partial injury suspected. X-rays of the left ankle, obtained on 03/28/2023, revealed: Question avulsion fracture of the lateral talus. No other evidence of fracture or dislocation. Patient Instructions: Scribed by Anni Steward medical billing specialist, for Maryann Howell PA-C on 03/31/2023 at 1:37 pm, EST. Coding Level of Care Code New Pt Level 4 (39156) Diagnoses Rupture of left Achilles tendon, initial encounter S86.012A Encounter type: initial encounter
[2023-03-31 13:43] VITALS: BMI 29.7
== END 2023-03-31 14:19 | disposition home or self-care (01) ==
PROVIDERS: PCP Physician Assistant; Visit Provider Physician Assistant
DX: S86.012A Strain of left Achilles tendon, initial encounter (principal)
CPT/HCPCS: 99204

== ENCOUNTER → 2023-03-31 13:33 | Outpatient (BNVA) | payer BC, SELFPAY | PROVIDERS: PCP Physician Assistant; Visit Provider Physician Assistant ==

== ENCOUNTER 2023-04-01 14:53 | Day surgery (SDC) | payer BC, SELFPAY ==
[2023-04-01] VITALS (8 sets, daily range): BP systolic 133–166; BP diastolic 69–93; PULSE 53–65; RESP 16; TEMP 36.6–37.1; O2SAT 96–100; BMI 29.7
--- NOTE | 2023-04-01 15:24 | MHC.SHP ---
Pre-Procedural Eval Section A - 24 Hr Update-Section A only Date of Service: 04/01/23 The patient is an INPATIENT: No Changes since office visit: No Cold of Flu in the past 2 weeks, No New Medical Problems, No Changes in Medication and No Patient answered all questions The patient has been examined within 24 hours of the surgical procedure. The History & Physical has been completed within 30 days and I have reviewed it.: Yes Section B - Complete if H&P > 30 days Chief Complaint: Strain of left Achilles tendon, initial encounter Allergies: Allergies Allergy/AdvReac Type Severity Reaction Status Date / Time penicillin V Allergy Intermediate hives Verified 04/01/23 14:59 Plan I have reviewed the history and physical and performed a pertinent physical examination on my patient. No changes have occurred unless specified. Time Spent With Patient Time: Total time managing care of this patient today ____ minutes.
--- NOTE | 2023-04-01 15:36 | HO.ANESPROP2 ---
[facility] Active Problems Active Problems: All Active Problems (Updated 04/01/23 @ 15:06 by Lolita Muse) Rupture of left Achilles tendon (Acute) Colon cancer screening (Acute) HLD (hyperlipidemia) (Acute) ADD (attention deficit disorder) (Acute) Annual physical exam (Acute) Inguinal hernia (Acute) Abnormal perception (Acute) Spastic bladder (Acute) Annual physical exam (Acute) Intermittent headache (Acute) Left groin pain (Acute) AMEYA (generalized anxiety disorder) (Acute) HTN (hypertension) (Acute) Borderline high cholesterol (Acute) Past Medical History Medical History Asthma Left groin pain AMEYA (generalized anxiety disorder) Borderline high cholesterol HTN (hypertension) Functional capacity: independent ambulation Family History Family History Mother Lung cancer Family history of problems with anesthesia: No Surgical History Surgical History History of oral surgery History of hip surgery History of surgery on arm H/O hernia repair History of Problems with Anesthesia: No Social History Social History Housing: House Alcohol intake: current Alcohol intake frequency: a few times a week Alcohol type: wine Patient Tobacco Use Status: Never used Tobacco e-Cigarette/Vaping Use: Never Used Second Hand Smoke Exposure: No Use of substances other than those prescribed or required for medical reasons: No Are you DNR?: No Advance Directives: No Advance Directives Information Provided: Yes service: No Current occupational status: employed Current occupation: [employer] Cognitive needs: No Hearing needs: No Vision needs: No Meds Allergies Allergy/AdvReac Type Severity Reaction Status Date / Time penicillin V Allergy Intermediate hives Verified 04/01/23 14:59 Active Medications: Current Medications Clindamycin Phosphate (Cleocin) 900 mg in 50 mls @ 50 mls/hr IV PREOP ONE Stop: 04/01/23 16:13 Home Medications Medication Instructions Recorded Confirmed Last Taken Type propranolol 10 mg tablet 10 mg PO BID PRN Anxiety 04/01/23 04/01/23 Unknown History Exam Height,Weight and Vital Signs: Height 5 ft 10 in Weight 93.894 kg Last Vital Signs Temp 98.8 F 04/01/23 15:07 Pulse 61 04/01/23 15:07 Resp 16 04/01/23 15:07 BP 152/77 H 04/01/23 15:07 Pulse Ox 96 04/01/23 15:07 O2 Del Method Room Air 04/01/23 15:07 Airway Mallampati Class: I TM Dist: >3cm Neck ROM: Full Loose/Missing/Broken Teeth: No Heart: rrr Lungs: cta b/l Assessment and Plan Assessment Anesthesia Assessment: Anesthesia Plan Discussed and Chart Reviewed Final Anesthetic Review Family History of Problems with Anesthesia: No History of Problems with Anesthesia: No NPO: Yes ASA Class: II Final Preanesthetic Review: No Changes in Pt Med Stat, Meds/Allgs Chart Reviewed, Consent Obtained/Reviewed and Anes Risks/Benef Reviewed Patient Risk: Low Procedure Risk: Low Anesthetic Plan Anesthetic Plan: GA Disposition: Standard PACU
[2023-04-01] MEDS: Lactated Ringers 1,000 ML 100 ML IVCONT (16:07)
--- NOTE | 2023-04-01 17:24 | PM.OP ---
Brief Operative Note Date of Service: 04/01/23 Pre-op diagnosis: Left achilles tendon rupture Post-op diagnosis: same Procedure: Left achilles tendon repair Surgeon: Kartik Aguayo MD Anesthesia: GLMA and local Was an Chemistry Research Assistant used for this Procedure?: Yes Chemistry Research Assistant: Maryann Howell Estimated blood loss (mL): 20 Tourniquet time (min): 45 IV fluids (mL): 1,000 Pathology: none sent Condition: stable Disposition: PACU
--- NOTE | 2023-04-03 15:24 | P.OP_ITS ---
Operative Note Operative Note Date of Service: 04/01/23 Narrative: Date of Service: 04/01/23 Pre-op diagnosis: Left achilles tendon rupture Post-op diagnosis: same Procedure: Left achilles tendon repair Surgeon: Kartik Aguayo MD Anesthesia: GLMA and local Was an Water And Sewer Systems Supervisor used for this Procedure?: Yes Water And Sewer Systems Supervisor: Maryann Howell Estimated blood loss (mL): 20 Tourniquet time (min): 45 IV fluids (mL): 1,000 Pathology: none sent Condition: stable Disposition: PACU Procedure in detail: Patient was brought to the operating room and placed prone on the surgical table. He was prepped and draped in standard sterile fashion and a time out was called to identify proper site, proper procedure and IV antibiotics per weight were administered. I began by making a 1.5-2 cm incision over the distal Achilles tendon. Once through skin, the paratenon was incised and protected. It was immediately obvious that he had a full-thickness tear of his Achilles tendon. This was tendon/tendon and the ends were clean. I opened up the incision distally and additional 1 cm to fully visualize the distal tendon. There was retraction of a portion of the proximal tendon such that I released the paratenon and then with a Shobha clamp was able to retrieve the torn retracted proximal tendon. I debrided the necrotic tissue and then using a #2 FiberWire and a Krackow stitch in both the distal and proximal fragment reapproximated to tendon fragments with the foot and hyper plantar flexion. I oversewed these this with additional locked FiberWire stitches and had an excellent repair. I irrigated copiously once I was satisfied with the repair. I then closed the paratenon and then the skin with absorbable sutures and skin glue. Patient was placed in a well-padded posterior splint was applied with the plan plantar flexion. Local anesthetic was injected around the incision site prior to dressing placement. Patient was then extubated brought to recovery room stable condition. There were no known complications.
== END 2023-04-01 18:47 | disposition home or self-care (01) ==
PROVIDERS: PCP Physician Assistant; Visit Provider Orthopaedic Surgery
PROC: (CPT 27650; principal; 2023-04-01 17:20)
DX: S86.012A Strain of left Achilles tendon, initial encounter (principal); X58.XXXA Exposure to other specified factors, initial encounter; Y93.9 Activity, unspecified; Y92.9 Unspecified place or not applicable; Y99.9 Unspecified external cause status
CPT/HCPCS: 27650; J0736; J2704; J2795; J3010

== ENCOUNTER → 2023-04-01 14:53 | Outpatient (BNV) | payer BC, SELFPAY | PROVIDERS: PCP Physician Assistant; Visit Provider Orthopaedic Surgery | DX: S86.012A Strain of left Achilles tendon, initial encounter (principal) | CPT/HCPCS: 27650 ==

== ENCOUNTER 2023-04-09 14:55 | Outpatient (AMB) | payer BC, SELFPAY ==
--- NOTE | 2023-04-09 14:57 | A.OFFVIS_ITS ---
Intake Vital Signs 04/09/23 15:02 Height 5 ft 10 in Weight 207 lb BMI 29.7 Intake Visit Reasons: PO LT achilles rupture 04/01/23 NE Intake Note: Wes is a 57 year old male who presents today for a post op appointment s/p LT achilles rupture 04/01/23 NE. Patient reports he is feeling good he has no pain. He just having a hard time to sleep. He has no concerns. Allergies penicillin V Allergy (Intermediate, Verified 04/09/23 15:05) hives HPI PO LT achilles rupture 04/01/23 NE HPI Details 57-year-old male who presents in the off ice today 8 days status post left achilles tendon repair, which was performed on 04/01/[address] Aguayo. The patient reports he is feeling good and has no pain. He states he is having a hard time sleeping. He has no other concerns at this time. [facility] Medical History Asthma Left groin pain AMEYA (generalized anxiety disorder) Borderline high cholesterol HTN (hypertension) Surgical History History of oral surgery History of hip surgery History of surgery on arm H/O hernia repair Family History Mother Lung cancer Social History Housing: House Alcohol intake: current Alcohol intake frequency: a few times a week Alcohol type: wine Patient Tobacco Use Status: Never used Tobacco e-Cigarette/Vaping Use: Never Used Second Hand Smoke Exposure: No service: No Current occupational status: employed Current occupation: [employer] Cognitive needs: No Hearing needs: No Vision needs: No Review of Systems Const All systems reviewed & are unremarkable except as noted in HPI and below Physical Exam Vital Signs: BMI result Body Mass Index 29.7 Const General: cooperative, healthy appearing and no acute distress Resp Effort & Inspection: normal respiratory effort and able to speak in complete sentences Cardio Rate: regular rate Peripheral pulses: Peripheral pulses 2+ throughout GI Palpation (GI): Soft to palpation Skin Lesions: no lesions Rashes: no rashes Extrem Other: Left achilles: Incision site is clean, dry, and intact covered with steri- stripes. No surrounding erythema or drainage. Minimal edema. Sensation is intact. Office Procedures Casting/Splints 31540-[id number] Leg Cast Application Procedure code (CPT) selection complete Assessment & Plan Assessment & Plan (1) S/P Achilles tendon repair: Comment: Left Achilles tendon repair 04/01/2023 NE Code(s): Z98.890 - Other specified postprocedural states Plan Mr. Berrios is a 57-year-old male who presents in the office today 8 days status post left achilles tendon repair, which was performed on 04/01/[address] Aguayo. The patient reports he is feeling good and has no pain. He states he is having a hard time sleeping. He has no other concerns at this time. I discussed the case with Dr. Aguayo and a collaborative treatment plan was made. He was placed in to a custom molded short leg cast in plantarflexion. He will return to the office in 3 weeks for cast removal and to transition in to a tall walking boot with a wedge. He will begin to work with physical therapy at that time. Follow up will be in 3 weeks, or sooner if needed. Patient Instructions: Scribed by Anni Steward medical appointment clerk, for Maryann Howell PA-C on 04/09/2023 at 3:11 pm, EST. Coding Level of Care Code Global (12720) Diagnoses S/P Achilles tendon repair Z98.890 CPT Codes Casting - CPT: 41471-[id number] Leg Cast Application ([id number])
[2023-04-09 15:02] VITALS: BMI 29.7
== END 2023-04-09 17:00 ==
PROVIDERS: PCP Physician Assistant; Visit Provider Physician Assistant
DX: Z48.89 Encounter for other specified surgical aftercare (principal); S86.012A Strain of left Achilles tendon, initial encounter
CPT/HCPCS: 29405; 99024

== ENCOUNTER → 2023-04-09 14:55 | Outpatient (BNVA) | payer BC, SELFPAY | PROVIDERS: PCP Physician Assistant; Visit Provider Physician Assistant | DX: Z47.89 Encounter for other orthopedic aftercare (principal) | CPT/HCPCS: 29405 ==

== ENCOUNTER 2023-04-21 09:29 | Outpatient (AMB) | payer BC, SELFPAY ==
--- NOTE | 2023-04-21 10:04 | MHC.OFFVIS ---
Intake Vital Signs 04/21/23 10:07 Height 5 ft 10 in Weight 207 lb BMI 29.7 Intake Visit Reasons: PO LT achilles rupture 04/01/23 NE Intake Note: Wes a 57 year old male presents today for a post operative cast change s/p left achilles rupture, DOS 04/01/23 NE. Patient reports his toes turn purple when his leg is not elevated. He has discomfort in his achilles area. Allergies penicillin V Allergy (Intermediate, Verified 04/21/23 11:12) hives HPI PO LT achilles rupture 04/01/23 NE HPI Details Wes a 57 year old male presents today for a post operative cast change s/p left achilles rupture, DOS 04/01/23 NE. Patient reports his toes turn purple when his leg is not elevated. He has discomfort in his achilles area. [facility] Medical History Asthma Left groin pain AMEYA (generalized anxiety disorder) Borderline high cholesterol HTN (hypertension) Surgical History History of oral surgery History of hip surgery History of surgery on arm H/O hernia repair Family History Mother Lung cancer Social History Housing: House Alcohol intake: current Alcohol intake frequency: a few times a week Alcohol type: wine Patient Tobacco Use Status: Never used Tobacco e-Cigarette/Vaping Use: Never Used Second Hand Smoke Exposure: No service: No Current occupational status: employed Current occupation: [employer] Cognitive needs: No Hearing needs: No Vision needs: No Physical Exam Vital Signs: BMI result Body Mass Index 29.7 Assessment & Plan Assessment & Plan (1) S/P Achilles tendon repair: Comment: Left Achilles tendon repair 04/01/2023 NE Code(s): Z98.890 - Other specified postprocedural states Plan: patient fit for tall walking boot today and will f/u as planned Coding Level of Care Code Global (28060) Diagnoses S/P Achilles tendon repair Z98.890
[2023-04-21 10:07] VITALS: BMI 29.7
== END 2023-04-21 11:13 | disposition home or self-care (01) ==
LOC: HO.HOS 09:30
PROVIDERS: PCP Physician Assistant; Visit Provider Physician Assistant
DX: Z98.890 Other specified postprocedural states (principal)
CPT/HCPCS: 99024

== ENCOUNTER → 2023-04-21 09:29 | Outpatient (BNVA) | payer BC, SELFPAY | PROVIDERS: PCP Physician Assistant; Visit Provider Physician Assistant ==

== ENCOUNTER 2023-04-30 11:25 | Outpatient (AMB) | payer BC, SELFPAY ==
--- NOTE | 2023-04-30 11:34 | MHC.OFFVIS ---
Intake Vital Signs 04/30/23 11:37 Height 5 ft 10 in Weight 207 lb BMI 29.7 Intake Visit Reasons: PO LT achilles rupture 04/01/23 NE-cast off Intake Note: Wes is a 57 year old male presents today for a post operative cast change s/p left achilles rupture, DOS 04/01/23 NE. Patient reports he is doing well, no pain or discomfort. Allergies penicillin V Allergy (Intermediate, Verified 04/30/23 11:36) hives HPI PO LT achilles rupture 04/01/23 NE-cast off HPI Details 57-year-old male who presents in the office today 1 month status post left achilles tendon repair, which was performed on 04/01/[address] Aguayo. I last saw the patient in the office on 04/09/2023 at which time he was placed in a custom molded short leg cast in plantarflexion. The anticipation is to transition him to a tall walking boot with a wedge. While in the office today the patient reports he is doing well with no pain or discomfort. [facility] Medical History Asthma Left groin pain AMEYA (generalized anxiety disorder) Borderline high cholesterol HTN (hypertension) Surgical History History of oral surgery History of hip surgery History of surgery on arm H/O hernia repair Family History Mother Lung cancer Social History Housing: House Alcohol intake: current Alcohol intake frequency: a few times a week Alcohol type: wine Patient Tobacco Use Status: Never used Tobacco e-Cigarette/Vaping Use: Never Used Second Hand Smoke Exposure: No service: No Current occupational status: employed Current occupation: [employer] Cognitive needs: No Hearing needs: No Vision needs: No Review of Systems Const All systems reviewed & are unremarkable except as noted in HPI and below Physical Exam Vital Signs: BMI result Body Mass Index 29.7 Const General: cooperative, healthy appearing and no acute distress Resp Effort & Inspection: normal respiratory effort and able to speak in complete sentences Cardio Rate: regular rate Peripheral pulses: Peripheral pulses 2+ throughout GI Palpation (GI): Soft to palpation Skin Lesions: no lesions Rashes: no rashes Extrem Other: Left achilles: Incision site is clean, dry, and intact. Slightly able to dorsiflex and plantarflex. Sensation intact. Pedal pulse intact. Assessment & Plan Assessment & Plan (1) S/P Achilles tendon repair: Comment: Left Achilles tendon repair 04/01/2023 NE Code(s): Z98.890 - Other specified postprocedural states Plan Mr. Berrios is a 57-year-old male who presents in the office today 1 month status post left achilles tendon repair, which was performed on 04/01/[address] Aguayo. I last saw the patient in the office on 04/09/2023 at which time he was placed in a custom molded short leg cast in plantarflexion. The anticipation is to transition him to a tall walking boot with a wedge. While in the office today the patient reports he is doing well with no pain or discomfort. Patient will remain in the walking boot at this time. An order was placed for him to being to work with physical therapy. He was given a prescription for this due to wishing to attend an outside facility. He is able to begin to partial weight bear. Follow up will be in 6 weeks, or sooner if needed. Orders: Orders PT Evaluation and Treatment Today Z98.890 - Other specified postprocedural states Patient Instructions: Scribed by Anni Steward medical assistant float, for Maryann Howell PA-C on 04/30/2023 at 11:32 am, EST. Coding Level of Care Code Global (03479) Diagnoses S/P Achilles tendon repair Z98.890
[2023-04-30 11:37] VITALS: BMI 29.7
== END 2023-04-30 11:59 | disposition home or self-care (01) ==
PROVIDERS: PCP Physician Assistant; Visit Provider Physician Assistant
DX: Z98.890 Other specified postprocedural states (principal)
CPT/HCPCS: 99024

== ENCOUNTER → 2023-04-30 11:25 | Outpatient (BNVA) | payer BC, SELFPAY | PROVIDERS: PCP Physician Assistant; Visit Provider Physician Assistant ==

== ENCOUNTER 2023-05-14 08:49 | Outpatient (AMB) | payer BC, SELFPAY ==
--- NOTE | 2023-05-14 09:02 | A.OFFVIS_ITS ---
Intake Intake Visit Reasons: PO LT achilles rupture 04/01/23 NE Intake Note: Wes is a 57 year old male who presents today for a wound check s/p LT achilles rupture 04/01/23 NE. Patient reports that he noticed his incision site was leaking puss. Patient reports no pain or discomfort, just a bit sore after going to PT. Allergies penicillin V Allergy (Intermediate, Verified 05/14/23 09:03) hives HPI PO LT achilles rupture 04/01/23 NE HPI Details 57-year-old male who presents in the off ice today for a wound check; 6 weeks status post left achilles tendon repair, which was performed on 04/01/[address] Aguayo. I last saw the patient in the office on 04/30/2023. At that time he was to remain in the boot with partial weight bearing. He was encouraged to attend PT, which he wanted to attend an outside facility. While in the office today the patient reports he noticed the incision site leaking puss. He denies pain or discomfort. He does report a bit of soreness after going to PT. [facility] Medical History Asthma Left groin pain AMEYA (generalized anxiety disorder) Borderline high cholesterol HTN (hypertension) Surgical History History of oral surgery History of hip surgery History of surgery on arm H/O hernia repair Family History Mother Lung cancer Social History Housing: House Alcohol intake: current Alcohol intake frequency: a few times a week Alcohol type: wine Patient Tobacco Use Status: Never used Tobacco e-Cigarette/Vaping Use: Never Used Second Hand Smoke Exposure: No service: No Current occupational status: employed Current occupation: [employer] Cognitive needs: No Hearing needs: No Vision needs: No Review of Systems Const All systems reviewed & are unremarkable except as noted in HPI and below Physical Exam Const General: cooperative, healthy appearing and no acute distress Resp Effort & Inspection: normal respiratory effort and able to speak in complete sentences Cardio Rate: regular rate Peripheral pulses: Peripheral pulses 2+ throughout GI Palpation (GI): Soft to palpation Skin Lesions: no lesions Rashes: no rashes Extrem Other: Left Achilles: Incision site at the proximal end roughly about 1 cm has an area of irritation. There is bloody discharge from the area. Negative Lazaro?s test. Sensation intact. Pedal pulse intact. Assessment & Plan Assessment & Plan (1) S/P Achilles tendon repair: Onset Date: ~04/01/23 Comment: Left Achilles tendon repair NE Code(s): Z98.890 - Other specified postprocedural states Plan Mr. Berrios is a 57-year-old male who presents in the office today for a wound check; 6 weeks status post left achilles tendon repair, which was performed on 04/01/[address] Aguayo. I last saw the patient in the office on 04/30/2023. At that time he was to remain in the boot with partial weight bearing. He was encouraged to attend PT, which he wanted to attend an outside facility. While in the office today the patient reports he noticed the incision site leaking puss. He denies pain or discomfort. He does report a bit of soreness after going to PT. Patient will be prescribed Doxycycline 100 mg PO BID for 10 days. He will perform daily dressing changes with silver. He will return on 05/18/2023, for a wound check with Dr. Aguayo. Follow up will be on 05/18/2023, for a wound check, or sooner if needed. Medications: New 2 doxycycline hyclate 100 mg PO BID 20 tabs 0RF 10 days Patient Instructions: Scribed by Anni Steward medical scientific liaison, for Maryann Howell PA-C on 05/14/2023 at 8:57 am, EST. Coding Level of Care Code Global (41743) Diagnoses S/P Achilles tendon repair Z98.890
== END 2023-05-14 10:09 | disposition home or self-care (01) ==
PROVIDERS: PCP Physician Assistant; Visit Provider Physician Assistant
DX: Z98.890 Other specified postprocedural states (principal)
CPT/HCPCS: 99024

== ENCOUNTER → 2023-05-14 08:49 | Outpatient (BNVA) | payer BC, SELFPAY | PROVIDERS: PCP Physician Assistant; Visit Provider Physician Assistant ==

== ENCOUNTER 2023-05-18 09:46 | Outpatient (AMB) | payer BC, SELFPAY ==
--- NOTE | 2023-05-18 09:55 | A.OFFVIS_ITS ---
Intake Vital Signs 05/18/23 10:00 Height 5 ft 10 in Weight 207 lb BMI 29.7 Intake Visit Reasons: PO LT achilles rupture 04/01/23 NE Intake Note: Wes is a 57 year old male who presents today for a wound check s/p LT achilles repair 04/01/23 NE. Patient presents today using crutches to remain PWB in boot with wedges and was placed on Doxycycline for wound complications. He continues to take the Doxycycline, does not complain of pain. Allergies penicillin V Allergy (Intermediate, Verified 05/19/23 10:56) hives HPI PO LT achilles rupture 04/01/23 NE HPI Details Wes is a 57 year old male who presents today for a wound check s/p LT achilles repair 04/01/23 NE. Patient presents today using crutches to remain PWB in boot with wedges and was placed on Doxycycline for wound complications. He continues to take the Doxycycline, does not complain of pain. His primary concern today is his wound complications, dressing was removed. [facility] Medical History Asthma Left groin pain AMEYA (generalized anxiety disorder) Borderline high cholesterol HTN (hypertension) Surgical History History of oral surgery History of hip surgery History of surgery on arm H/O hernia repair Family History Mother Lung cancer Social History Housing: House Alcohol intake: current Alcohol intake frequency: a few times a week Alcohol type: wine Patient Tobacco Use Status: Never used Tobacco e-Cigarette/Vaping Use: Never Used Second Hand Smoke Exposure: No service: No Current occupational status: employed Current occupation: [employer] Cognitive needs: No Hearing needs: No Vision needs: No Physical Exam Vital Signs: BMI result Body Mass Index 29.7 Extrem Other: 1.5 cm open wound of proximal incision with minimal depth. Fibrinous material. No purulence and minimal surrounding erythema Assessment & Plan Assessment & Plan (1) S/P Achilles tendon repair: Onset Date: ~04/01/23 Comment: Left Achilles tendon repair NE Code(s): Z98.890 - Other specified postprocedural states Plan: s/p achilles tendon repair with small wound irritation. Sub acute but can't rule out infection and was started on doxy. He is doing well. We will debride his wound daily and he will abstain from boot and PT. Coding Level of Care Code Global (63017) Diagnoses S/P Achilles tendon repair Z98.890
[2023-05-18 10:00] VITALS: BMI 29.7
== END 2023-05-18 12:33 | disposition home or self-care (01) ==
PROVIDERS: PCP Physician Assistant; Visit Provider Orthopaedic Surgery
DX: Z98.890 Other specified postprocedural states (principal)
CPT/HCPCS: 99024

== ENCOUNTER → 2023-05-18 09:46 | Outpatient (BNVA) | payer BC, SELFPAY | PROVIDERS: PCP Physician Assistant; Visit Provider Orthopaedic Surgery ==

== ENCOUNTER 2023-05-19 10:50 | Outpatient (AMB) | payer BC, SELFPAY ==
[2023-05-19 10:56] VITALS: BMI 29.7
--- NOTE | 2023-05-19 10:56 | A.OFFVIS_ITS ---
Intake Vital Signs 05/19/23 10:56 Height 5 ft 10 in Weight 207 lb BMI 29.7 Intake Visit Reasons: OV - Lt Achilles 04/01/23 - Dressing Change Intake Note: Wes is a 57 year old male who presents today for a dressing change. Patient reports he is doing well, however he is feeling a bit sore. Allergies penicillin V Allergy (Intermediate, Verified 05/19/23 10:56) hives HPI OV - Lt Achilles 04/01/23 - Dressing Change HPI Details 57-year-old male who presents in the off ice today for a wound check; 7 weeks status post left achilles tendon repair, which was performed on 04/01/[address] Aguayo. I last saw the patient on 05/14/2023, at that time he was prescribed Doxycycline 100 mg PO BID for 10 days. He was instructed to perform daily dressing changes. While in the office today the patient reports he is doing good. He does reports some soreness. [facility] Medical History Asthma Left groin pain AMEYA (generalized anxiety disorder) Borderline high cholesterol HTN (hypertension) Surgical History History of oral surgery History of hip surgery History of surgery on arm H/O hernia repair Family History Mother Lung cancer Social History Housing: House Alcohol intake: current Alcohol intake frequency: a few times a week Alcohol type: wine Patient Tobacco Use Status: Never used Tobacco e-Cigarette/Vaping Use: Never Used Second Hand Smoke Exposure: No service: No Current occupational status: employed Current occupation: [employer] Cognitive needs: No Hearing needs: No Vision needs: No Review of Systems Const All systems reviewed & are unremarkable except as noted in HPI and below Physical Exam Vital Signs: BMI result Body Mass Index 29.7 Const General: cooperative, healthy appearing and no acute distress Resp Effort & Inspection: normal respiratory effort and able to speak in complete sentences Cardio Rate: regular rate Peripheral pulses: Peripheral pulses 2+ throughout GI Palpation (GI): Soft to palpation Skin Lesions: no lesions Rashes: no rashes Extrem Other: Left Achilles: Incision site at the proximal end roughly about 2 cm area of healthy tissue from debridement yesterday in office. There is bloody discharge from the area. No purulent discharge. Negative Lazaro?s test. Sensation intact. Pedal pulse intact. Assessment & Plan Assessment & Plan (1) S/P Achilles tendon repair: Onset Date: ~04/01/23 Comment: Left Achilles tendon repair NE Code(s): Z98.890 - Other specified postprocedural states Plan Mr. Berrios is a 57-year-old male who presents in the office today for a wound check; 7 weeks status post left achilles tendon repair, which was performed on 04/01/[address] Aguayo. I last saw the patient on 05/14/2023, at that time he was prescribed Doxycycline 100 mg PO BID for 10 days. He was instructed to perform daily dressing changes. While in the office today the patient reports he is doing good. He does reports some soreness. Patient has a dressing change while in the office today. He is scheduled to return to the office tomorrow for debridement and a wet to dry dressing change. He was given an off the shelf blue night splint to wear at night due to the boot causing him access pressure and rubbing during the night. This has caused him increased pain. He understands that he has to wear the wedge in the boot in the blue night splint, and if he gets out of bed he needs to return to the tall walking boot with the wedge. He will continue to take the Doxycycline until he has completed his course. Follow up will be tomorrow 05/20/2023, or sooner if needed. Patient Instructions: Scribed by Anni Steward medical practice administrator, for Maryann Howell PA-C on 05/19/2023 at 11:32 am, EST. Coding Level of Care Code Global (84626) Diagnoses S/P Achilles tendon repair Z98.890
== END 2023-05-19 11:23 | disposition home or self-care (01) ==
PROVIDERS: PCP Physician Assistant; Visit Provider Physician Assistant
DX: Z98.890 Other specified postprocedural states (principal)
CPT/HCPCS: 99024

== ENCOUNTER → 2023-05-19 10:50 | Outpatient (BNVA) | payer BC, SELFPAY | PROVIDERS: PCP Physician Assistant; Visit Provider Physician Assistant ==

== ENCOUNTER 2023-05-20 12:47 | Outpatient (AMB) | payer BC, SELFPAY ==
--- NOTE | 2023-05-20 12:50 | A.OFFVIS_ITS ---
Intake Intake Visit Reasons: po- Lt Achilles 04/01/23 - Dressing Change Intake Note: Wes rollins 57 year old male presents today for a post operative wound check/bandage change s/p left achilles repair on 04/01/23. Patient reports that he feels much better today. He has no concerns. Allergies penicillin V Allergy (Intermediate, Verified 05/20/23 12:55) hives HPI po- Lt Achilles 04/01/23 - Dressing Change HPI Details 57-year-old male [facility] Achilles repair, 04/01/23. He states he has improvement in his pain and is doing well overall. He has no other concerns today. [facility] Medical History Asthma Left groin pain AMEYA (generalized anxiety disorder) Borderline high cholesterol HTN (hypertension) Surgical History History of oral surgery History of hip surgery History of surgery on arm H/O hernia repair Family History Mother Lung cancer Social History Housing: House Alcohol intake: current Alcohol intake frequency: a few times a week Alcohol type: wine Patient Tobacco Use Status: Never used Tobacco e-Cigarette/Vaping Use: Never Used Second Hand Smoke Exposure: No service: No Current occupational status: employed Current occupation: [employer] Cognitive needs: No Hearing needs: No Vision needs: No Review of Systems Const All systems reviewed & are unremarkable except as noted in HPI and below Physical Exam Const General: cooperative, healthy appearing and no acute distress Resp Effort & Inspection: normal respiratory effort and able to speak in complete sentences Cardio Rate: regular rate Peripheral pulses: Peripheral pulses 2+ throughout GI Palpation (GI): Soft to palpation Skin Lesions: no lesions Rashes: no rashes Extrem Other: Left Achilles: Incision site at the proximal end roughly about 1.5 cm area of healthy tissue. There is bloody discharge from the area. No purulent discharge. Negative Lazaro?s test. Sensation intact. Pedal pulse intact. Assessment & Plan Assessment & Plan (1) S/P Achilles tendon repair: Onset Date: ~04/01/23 Comment: Left Achilles tendon repair NE Code(s): Z98.890 - Other specified postprocedural states Plan Skin was debrided to bleeding tissue and wet to dry dressing was applied. He will return tomorrow for repeat wound check. Patient Instructions: Scribed for Pj Navas PA-C, by Rodolfo Ng emergency medical technician, on 05/20/2023 at 1:15 PM EST. I, Pj Navas PA-C, have personally reviewed and agree with the information entered by the scribe. Coding Level of Care Code Global (82635) Diagnoses S/P Achilles tendon repair Z98.890
== END 2023-05-20 13:18 | disposition home or self-care (01) ==
PROVIDERS: PCP Physician Assistant; Visit Provider Physician Assistant
DX: Z98.890 Other specified postprocedural states (principal)
CPT/HCPCS: 99024

== ENCOUNTER → 2023-05-20 12:47 | Outpatient (BNVA) | payer BC, SELFPAY | PROVIDERS: PCP Physician Assistant; Visit Provider Physician Assistant ==

== ENCOUNTER 2023-05-21 13:45 | Outpatient (AMB) | payer BC, SELFPAY ==
--- NOTE | 2023-05-21 13:52 | A.OFFVIS_ITS ---
Intake Intake Visit Reasons: PO-Lt Achilles 04/01/23 -follow up Intake Note: Wes is a 57 year old male who presents today for a post operative appointment s/p left achilles repair on 04/01/23. Patient reports he is feeling sore. Allergies penicillin V Allergy (Intermediate, Verified 05/21/23 13:58) hives HPI PO-Lt Achilles 04/01/23 -follow up HPI Details 57-year-old male who presents in the off ice today for a wound check; 7 weeks status post left Achilles tendon repair, which was performed on 04/01/[address] Aguayo. I last saw the patient in the office on 05/19/2023, when his dressing was changed. He was given a night splint to wear at night due to the boot causing him access pressure and rubbing. Instructed to wear the wedge in the splint and then to return it to the boot when he is weighting the boot. [facility] Medical History Asthma Left groin pain AMEYA (generalized anxiety disorder) Borderline high cholesterol HTN (hypertension) Surgical History History of oral surgery History of hip surgery History of surgery on arm H/O hernia repair Family History Mother Lung cancer Social History Housing: House Alcohol intake: current Alcohol intake frequency: a few times a week Alcohol type: wine Patient Tobacco Use Status: Never used Tobacco e-Cigarette/Vaping Use: Never Used Second Hand Smoke Exposure: No service: No Current occupational status: employed Current occupation: [employer] Cognitive needs: No Hearing needs: No Vision needs: No Review of Systems Const All systems reviewed & are unremarkable except as noted in HPI and below Physical Exam Const General: cooperative, healthy appearing and no acute distress Resp Effort & Inspection: normal respiratory effort and able to speak in complete sentences Cardio Rate: regular rate Peripheral pulses: Peripheral pulses 2+ throughout GI Palpation (GI): Soft to palpation Skin Lesions: no lesions Rashes: no rashes Extrem Other: Left Achilles: Incision site at the proximal end roughly about 2 cm area of healthy tissue. Deep layer of granulation tissue observed. No purulent discharge. Negative Lazaro?s test. Sensation intact. Pedal pulse intact. Assessment & Plan Assessment & Plan (1) S/P Achilles tendon repair: Onset Date: ~04/01/23 Comment: Left Achilles tendon repair NE Code(s): Z98.890 - Other specified postprocedural states Plan Mr. Berrios is a 57-year-old male who presents in the office today for a wound check; 7 weeks status post left Achilles tendon repair, which was performed on 04/01/[address] Aguayo. I last saw the patient in the office on 05/19/2023, when his dressing was changed. He was given a night splint to wear at night due to the boot causing him access pressure and rubbing. Instructed to wear the wedge in the splint and then to return it to the boot when he is weighting the boot. Dr. Morse was available to see the patient with me while in the office today. Patient will discontinue wet to dry dressing changes at this time. He will switch to dry dressing changes to be done daily. I encouraged him while he is at home and not ambulating to come out of the boot to let the skin rest, in order to minimize irritation to the affected area. Within the boot he can continue to try to focus on using the area of the ball of his foot for most of his weight, with the heel wedges to remain in place. Continue to use the night splint for comfort within the boot. I encourage non-weight bearing until his follow up on 05/27/2023, for a wound check. Follow up will be on 05/27/2023, or sooner if needed. Patient Instructions: Scribed by Anni Steward medical laboratory technician, for Maryann Howell PA-C on 05/21/2023 at 1:49 pm, EST. Coding Level of Care Code Global (44944) Diagnoses S/P Achilles tendon repair Z98.890
== END 2023-05-21 15:08 | disposition home or self-care (01) ==
PROVIDERS: PCP Physician Assistant; Visit Provider Physician Assistant
DX: Z98.890 Other specified postprocedural states (principal)
CPT/HCPCS: 99024

== ENCOUNTER → 2023-05-21 13:45 | Outpatient (BNVA) | payer BC, SELFPAY | PROVIDERS: PCP Physician Assistant; Visit Provider Physician Assistant ==

== ENCOUNTER 2023-05-27 10:51 | Outpatient (AMB) | payer BC, SELFPAY ==
--- NOTE | 2023-05-27 11:19 | MHC.OFFVIS ---
Intake Intake Visit Reasons: PO-Lt Achilles 04/01/23 Intake Note: Wes is a 57 year old male who presents today for a post operative appointment s/p left achilles repair on 04/01/23. Patient reports he is doign well. He notices its getting better slowly. Allergies penicillin V Allergy (Intermediate, Verified 05/27/23 11:24) hives HPI PO-Lt Achilles 04/01/23 HPI Details 7-year-old male who presents in the office today for a wound check; 7 weeks status post left Achilles tendon repair, which was performed on 04/01/[address] Aguayo. I last saw the patient in the office on 05/21/2023 when he was to discontinue wet to dry dressing changes and switch to dry dressing changes daily. I encouraged him while he was at home and not ambulating to come out of the boot to let the skin rest, to minimize irritation to the affected area. Within the boot he can continue to try to focus on using the area of the ball of his foot for most of his weight, with the heel wedges to remain in place. He was to continue to use the night splint for comfort within the boot. While in the office today the patient reports he is doing well. He states he is getting better slowly. [facility] Medical History Asthma Left groin pain AMEYA (generalized anxiety disorder) Borderline high cholesterol HTN (hypertension) Surgical History History of oral surgery History of hip surgery History of surgery on arm H/O hernia repair Family History Mother Lung cancer Social History Housing: House Alcohol intake: current Alcohol intake frequency: a few times a week Alcohol type: wine Patient Tobacco Use Status: Never used Tobacco e-Cigarette/Vaping Use: Never Used Second Hand Smoke Exposure: No service: No Current occupational status: employed Current occupation: [employer] Cognitive needs: No Hearing needs: No Vision needs: No Review of Systems Const All systems reviewed & are unremarkable except as noted in HPI and below Physical Exam Const General: cooperative, healthy appearing and no acute distress Resp Effort & Inspection: normal respiratory effort and able to speak in complete sentences Cardio Rate: regular rate Peripheral pulses: Peripheral pulses 2+ throughout GI Palpation (GI): Soft to palpation Skin Lesions: no lesions Rashes: no rashes Extrem Other: Left Achilles: Incision site at the proximal end roughly about 1/2 cm area of healthy granulation tissue with scant serosang discharge. No purulent discharge. Negative Lazaro?s test. Sensation intact. Pedal pulse intact. Assessment & Plan Assessment & Plan (1) S/P Achilles tendon repair: Onset Date: ~04/01/23 Comment: Left Achilles tendon repair NE Code(s): Z98.890 - Other specified postprocedural states Plan Mr. Berrios is a 7-year-old male who presents in the office today for a wound check; 7 weeks status post left Achilles tendon repair, which was performed on 04/01/[address] Aguayo. I last saw the patient in the office on 05/21/2023 when he was to discontinue wet to dry dressing changes and switch to dry dressing changes daily. I encouraged him while he was at home and not ambulating to come out of the boot to let the skin rest, to minimize irritation to the affected area. Within the boot he can continue to try to focus on using the area of the ball of his foot for most of his weight, with the heel wedges to remain in place. He was to continue to use the night splint for comfort within the boot. While in the office today the patient reports he is doing well. He states he is getting better slowly. Dry dressing was applied in the office today. He may resume PT at [facility] in [place]. I would like to call them to see if they can place a heel lift into his shoe. If they are able to do so I would like him to discontinue the use of the boot and transition into a supportive sneaker with a heel lift. He should still avoid any upper body activities at the gym. Follow-up will be in 1 week for a wound check, or sooner if needed. Patient Instructions: Scribed by Anni Steward rn medical inpatient services, for Maryann Howell PA-C on 05/26/2023 at 11:04 am, EST. Coding Level of Care Code Global (99457) Diagnoses S/P Achilles tendon repair Z98.890
== END 2023-05-27 11:46 | disposition home or self-care (01) ==
PROVIDERS: PCP Physician Assistant; Visit Provider Physician Assistant
DX: Z98.890 Other specified postprocedural states (principal)
CPT/HCPCS: 99024

== ENCOUNTER → 2023-05-27 10:51 | Outpatient (BNVA) | payer BC, SELFPAY | PROVIDERS: PCP Physician Assistant; Visit Provider Physician Assistant ==

== ENCOUNTER 2023-06-04 09:16 | Outpatient (AMB) | payer BC, SELFPAY ==
--- NOTE | 2023-06-04 09:23 | A.OFFVIS_ITS ---
Intake Visit Reasons: PO-Lt Achilles 04/01/23-wound check Intake Note: Wes is a 57 year old male who presents today with crutches for a wound check s/p left achilles repair on 04/01/23. Patient reports he is doing well. He expresses that the wound has been doing good and not leaking of puss. Allergies penicillin V Allergy (Intermediate, Verified 06/04/23 09:26) hives HPI HPI PO-Lt Achilles 04/01/23-wound check: Details: 57--year-old male who presents in the office today for a wound check; 2 months status post left Achilles tendon repair, which was performed on 04/01/[address] Lorelei Aguayo. I last saw the patient in the office on 05/27/2023, when a dry dressing was applied. He was to resume PT at [facility] in [place]. PT was unable able to make the heel lift. This was discussed by Dr. Aguayo who stated he can get one OTC at [facility], it is a small lift, about 1/4 or a 1/2 inch thick, that should remain in his shoe until 3 months post op. He can place this into a normal walking shoe and discontinue the boot entirely. He should continue to avoid the gym until the wound is completely healed with no scabbing. Patient was called and notified. Patient presents in the office today on crutches. He reports he is doing well. He states the wound has been fine with no pus leaking. 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 Eschar tissue over the incision site which appears to be superficial. No purulent discharge. Negative Lazaro?s test. Sensation intact. Pedal pulse intact. Assessment & Plan Assessment & Plan (1) S/P Achilles tendon repair: Onset Date: ~04/01/23 Comment: Left Achilles tendon repair NE Code(s): Z98.890 - Other specified postprocedural states Category: Surgical Plan Mr. Berrios is a 57-year-old male who presents in the office today for a wound check; 2 months status post left Achilles tendon repair, which was performed on 04/01/[address] Aguayo. I last saw the patient in the office on 05/27/2023, when a dry dressing was applied. He was to resume PT at [facility] in [place]. PT was unable able to make the heel lift. This was discussed by Dr. Aguayo who stated he can get one OTC at [facility], it is a small lift, about 1/4 or a 1/2 inch thick, that should remain in his shoe until 3 months post op. He can place this into a normal walking shoe and discontinue the boot entirely. He should continue to avoid the gym until the wound is completely healed with no scabbing. Patient was called and notified. Patient presents in the office today on crutches. He reports he is doing well. He states the wound has been fine with no pus leaking. Recommend for the patient to discontinue the application of dry dressing changes at this time to allow for the remainder of the wound to dry out. He can continue PT at [place]. He currently has a heel lift in his shoe and will discontinue the use of the boot. The heel lift will remain in place for 3 months post-surgical date. Follow up will be in 2 weeks for a wound check, or sooner if needed. Patient Instructions: Scribed by Anni Steward medical numerical control operator, for Maryann Howell PA-C on 06/04/2023 at 9:19 am, EST. Coding Level of Care Code Global (71264) Diagnoses S/P Achilles tendon repair Z98.890
== END 2023-06-04 09:45 | disposition home or self-care (01) ==
PROVIDERS: PCP Physician Assistant; Visit Provider Physician Assistant
DX: Z98.890 Other specified postprocedural states (principal)
CPT/HCPCS: 99024

== ENCOUNTER → 2023-06-04 09:16 | Outpatient (BNVA) | payer BC, SELFPAY | PROVIDERS: PCP Physician Assistant; Visit Provider Physician Assistant ==

== ENCOUNTER 2023-06-19 08:34 | Outpatient (AMB) | payer BC, SELFPAY ==
--- NOTE | 2023-06-19 08:40 | MHC.OFFVIS ---
Intake Visit Reasons: PO-Lt Achilles 04/01/23-wound check Intake Note: Wes is a 57 year old male who presents today with crutches for a wound check s/p left achilles repair on 04/01/23. Patient reports he tapped the wounded area when he was getting in to bed however he notices it that its scabbing. He states that physical therapy is going well. Allergies penicillin V Allergy (Intermediate, Verified 06/19/23 08:40) hives HPI HPI PO-Lt Achilles 04/01/23-wound check: Details: 57-year-old male who presents in the office today for a wound check; 11 weeks status post left Achilles tendon repair, which was performed on 04/01/[address] Aguayo. I last saw the patient in the office on 06/04/2023 when he was encouraged to continue PT at [facility]. A heel lift was placed in his shoe, and he was instructed to discontinue the use of the walking boot. While in the office today the patient reports tapping the wound when trying to get into bed. He reports scabbing over the area. Confirms participating in PT and reports it is going well. [facility] Medical History Asthma Left groin pain AMEYA (generalized anxiety disorder) Borderline high cholesterol HTN (hypertension) Surgical History History of oral surgery History of hip surgery History of surgery on arm H/O hernia repair Family History Mother Lung cancer Social History Housing: House Alcohol intake: current Alcohol intake frequency: a few times a week Alcohol type: wine Patient Tobacco Use Status: Never used Tobacco e-Cigarette/Vaping Use: Never Used Second Hand Smoke Exposure: No service: No Current occupational status: employed Current occupation: [employer] Cognitive needs: No Hearing needs: No Vision needs: No Review of Systems Const All systems reviewed & are unremarkable except as noted in HPI and below Physical Exam Const General: cooperative, healthy appearing and no acute distress Resp Effort & Inspection: normal respiratory effort and able to speak in complete sentences Cardio Rate: regular rate Peripheral pulses: Peripheral pulses 2+ throughout GI Palpation (GI): Soft to palpation Skin Lesions: no lesions Rashes: no rashes Extrem Other: Left Achilles: Peas sized area of irritated easchar tissue. No purulent discharge. Negative Lazaro?s test. Sensation intact. Pedal pulse intact. Assessment & Plan Assessment & Plan (1) S/P Achilles tendon repair: Onset Date: ~04/01/23 Comment: Left Achilles tendon repair NE Code(s): Z98.890 - Other specified postprocedural states Category: Surgical Plan Mr. Berrios is a 57-year-old male who presents in the office today for a wound check; 11 weeks status post left Achilles tendon repair, which was performed on 04/01/[address] Aguayo. I last saw the patient in the office on 06/04/2023 when he was encouraged to continue PT at [facility]. A heel lift was placed in his shoe, and he was instructed to discontinue the use of the walking boot. While in the office today the patient reports tapping the wound when trying to get into bed. He reports scabbing over the area. Confirms participating in PT and reports it is going well. Dr. Aguayo was available to see the patient with me while in the office today. He performed a bedside debridement of the superficial layer of tissues down to healthy bleeding tissue. A wet to dry dressing was placed. He was instructed to perform daily wet to dry dressing changes. Supplies were given to him in the office. He was educated on signs of infection, which are as follows but not limited to erythema, edema, drainage, or warmth. If he is to experience any of these symptoms, he must contact the office immediately or present to the ED. Follow up will be in 1 week for a wound check, or sooner if needed. Medications: Refilled doxycycline hyclate 100 mg PO BID 20 tabs 0RF 10 days Patient Instructions: Scribed by Anni Steward rn medical inpatient services, for Maryann Howell PA-C on 06/19/2023 at 8:37 am, EST. Coding Level of Care Code Global (24124) Diagnoses S/P Achilles tendon repair Z98.890
== END 2023-06-19 10:11 | disposition home or self-care (01) ==
PROVIDERS: PCP Physician Assistant; Visit Provider Physician Assistant
DX: Z98.890 Other specified postprocedural states (principal)
CPT/HCPCS: 99024

== ENCOUNTER → 2023-06-19 08:34 | Outpatient (BNVA) | payer BC, SELFPAY | PROVIDERS: PCP Physician Assistant; Visit Provider Physician Assistant ==

== ENCOUNTER 2023-06-25 09:40 | Outpatient (AMB) | payer BC, SELFPAY ==
--- NOTE | 2023-06-25 09:42 | MHC.OFFVIS ---
Intake Visit Reasons: PO-Lt Achilles 04/01/23-wound check Intake Note: Wes is a 57 year old male who presents today with crutches for a wound check s/p left achilles repair on 04/01/23. Patient reports he noticed every time he was doing the dressing changes he felt like he was ripping the wound open. He expresses that he wasn't taught doing the wet to dry dressing but he looked it up and he was able to perform them him self. Allergies penicillin V Allergy (Intermediate, Verified 06/25/23 09:53) hives HPI HPI PO-Lt Achilles 04/01/23-wound check: Details: 57-year-old male who presents in the office today with crutches for a wound check; 3 months status post left Achilles tendon repair, which was performed on 04/01/[address] Augayo. I last saw the patient in the office on 06/19/2023 when he underwent a bedside debridement of the superficial layer of tissues down to healthy bleeding tissue with Dr. Aguayo. A wet to dry dressing was placed. He was instructed to perform daily wet to dry dressing changes. While in the office today the patient reports when he does the wet to dry dressing change, he feels like he is ripping the wound. He states he was not taught how to perform the dressing change. Therefore, he looked up how to change them himself. [facility] Medical History Asthma Left groin pain AMEYA (generalized anxiety disorder) Borderline high cholesterol HTN (hypertension) Surgical History History of oral surgery History of hip surgery History of surgery on arm H/O hernia repair Family History Mother Lung cancer Social History Housing: House Alcohol intake: current Alcohol intake frequency: a few times a week Alcohol type: wine Patient Tobacco Use Status: Never used Tobacco e-Cigarette/Vaping Use: Never Used Second Hand Smoke Exposure: No service: No Current occupational status: employed Current occupation: [employer] Cognitive needs: No Hearing needs: No Vision needs: No Review of Systems Const All systems reviewed & are unremarkable except as noted in HPI and below Physical Exam Const General: cooperative, healthy appearing and no acute distress Resp Effort & Inspection: normal respiratory effort and able to speak in complete sentences Cardio Rate: regular rate Peripheral pulses: Peripheral pulses 2+ throughout GI Palpation (GI): Soft to palpation Skin Lesions: no lesions Rashes: no rashes Extrem Other: Left Achilles: Incision site is clean, and dry. Eschar tissue over the incision site which appears to be superficial. No purulent discharge. Negative Lazaro?s test. Sensation intact. Pedal pulse intact. Assessment & Plan Assessment & Plan (1) S/P Achilles tendon repair: Onset Date: ~04/01/23 Comment: Left Achilles tendon repair NE Code(s): Z98.890 - Other specified postprocedural states Category: Surgical Plan Mr. Berrios is a 57-year-old male who presents in the office today with crutches for a wound check; 3 months status post left Achilles tendon repair, which was performed on 04/01/[address] Aguayo. I last saw the patient in the office on 06/19/2023 when he underwent a bedside debridement of the superficial layer of tissues down to healthy bleeding tissue with Dr. Aguayo. A wet to dry dressing was placed. He was instructed to perform daily wet to dry dressing changes. While in the office today the patient reports when he does the wet to dry dressing change, he feels like he is ripping the wound. He states he was not taught how to perform the dressing change. Therefore, he looked up how to change them himself. Patient will continue with dry dressing changes. He will complete his course of antibiotics. He was educated on signs of infection, which are as follows but not limited to erythema, edema, drainage, or warmth. If he is to experience any of these symptoms, he must contact the office immediately or present to the ED. Follow up will be in 2 weeks for a wound check, or sooner if needed. Patient Instructions: Scribed by Anni Steward medical office supervisor, for Maryann Howell PA-C on 06/25/2023 at 9:51 am, EST. Coding Level of Care Code Global (15553) Diagnoses S/P Achilles tendon repair Z98.890
== END 2023-06-25 10:23 | disposition home or self-care (01) ==
PROVIDERS: PCP Physician Assistant; Visit Provider Physician Assistant
DX: Z98.890 Other specified postprocedural states (principal)
CPT/HCPCS: 99024

== ENCOUNTER → 2023-06-25 09:40 | Outpatient (BNVA) | payer BC, SELFPAY | PROVIDERS: PCP Physician Assistant; Visit Provider Physician Assistant ==

== ENCOUNTER 2023-06-30 07:50 | Outpatient (REF) | payer BC, SELFPAY ==
[2023-06-30 10:34] LABS: Hematocrit 42.9 % (42.0-52.0); Hemoglobin 14.4 g/dl (14.0-18.0); Mean Corpuscular HGB Conc 33.6 g/dl (31.0-36.0); Mean Corpuscular Hemoglobin 30.9 pg (27.0-33.0); Mean Corpuscular Volume 92.1 fL (80.0-98.0); Mean Platelet Volume 11.5 fL (9.4-12.4); Platelet Count 254 X10*3/uL (160-400); Red Blood Count 4.66 X10*6/uL (4.60-5.80); Red Cell Distribution Width 12.5 % (11.0-16.0); White Blood Count 5.5 X10*3/uL (4.8-10.8)
[2023-06-30 11:02] LABS: Alanine Aminotransferase 21 U/L (0-40); Albumin Level 4.2 g/dL (3.5-5.0); Alkaline Phosphatase 64 U/L (39-117); Anion Gap 11 (12-20); Aspartate Amino Transferase 19 U/L (5-37); Bilirubin Total 0.7 mg/dL (0.0-1.0); Blood Urea Nitrogen 21 mg/dL (9-16); Calcium 9.3 mg/dL (8.4-10.2); Carbon Dioxide 27 mmol/L (22-29); Chloride 107 mmol/L (96-108); Cholesterol 180 mg/dL (<200); Estimated Glomerular Filt Rate > 60; Glucose Fasting 96 mg/dL (60-99); HDL Cholesterol 60 mg/dL (>40); LDL Cholesterol Calculated 108 mg/dL (<100); Potassium 3.7 mmol/L (3.3-5.1); Sodium 141 mmol/L (135-145); Total Protein 6.7 g/dL (6.5-8.0); Triglycerides 63 mg/dL (<150)
[2023-06-30 11:15] LABS: Creatinine Urine 149.51 mg/dL; Microalbumin Urine < 5.0 mg/L
== END 2023-06-30 07:51 | disposition home or self-care (01) ==
LOC: HO.HMGCLDS 07:50
PROVIDERS: PCP Physician Assistant; Visit Provider Physician Assistant
DX: I10 Essential (primary) hypertension (principal); E78.2 Mixed hyperlipidemia
CPT/HCPCS: 36415; 80053; 80061; 82043; 82570; 85027

== ENCOUNTER 2023-07-01 08:51 | Outpatient (AMB) | payer BC, SELFPAY ==
[2023-07-01 09:12] VITALS: BP 102/84; PULSE 57; O2SAT 97; BMI 29.5
--- NOTE | 2023-07-01 09:12 | A.OFFPC_ITS ---
Vital Signs 3 07/01/23 09:12 Height 5 ft 10 in Weight 205 lb 6 oz BMI 29.5 BP 102/84 Blood Pressure Location Rt brachial Position Sitting Pulse 57 Pulse Source Pulse Oximeter Pulse Oximetry (%) 97 Oxygen Delivery Method Room Air Intake Visit Reasons: 6mth f/u Marketing Research Coordinator Required: No Accompanied by: Self / Same As Patient Allergies penicillin V Allergy (Intermediate, Verified 07/01/23 09:23) hives Medication List - Last Reconciled 07/01/23 by Vignesh Trevino PA-C bupropion HCl SR (Wellbutrin SR) 200 mg PO DAILY 90 days doxycycline hyclate 100 mg PO BID 10 days lisinopril 10 mg PO DAILY lorazepam 0.5 mg PO DAILY 4 days propranolol 10 mg PO BID PRN simvastatin 10 mg PO DAILY 30 days solifenacin 5 mg PO DAILY Tobacco use date assessed: 07/01/23 Dental Screening Dental Screen Date: 12/31/22 HPI 6mth f/u 2 HPI0 Details Patient is a 57 year male here today for a follow-up visit.? Patient has a past history significant for hypertension , spastic bladder, generalized anxiety disorder. Unfortunately suffered an Achilles rupture a few months playing [employer] had surgery. Making fine recovery though still has some difficulty with ambulation. .. Hypertension:? Blood pressure today in office acceptable.? Continues on lisinopril 10 mg with good effect. .. Hyperlipidemia :? Continues on low-dose simvastatin. Most recent labs showing much improved total cholesterol and LDL..? Patient reports he has been working on restrict his cholesterol in his diet. PLAN: Will discontinue statin therapy and recheck lipid panel in 6 months. Goal LDL is to be below 160 .. Anxiety/ adhd:? ADHD has been fairly well controlled. Now is retired and feels that he does not need any stimulant medication to keep him focused. Still does have anxiety specially when he drives. .. Spastic bladder:? Has been stable with the use of solifenacin daily. Bladder spasms worsen with certain beverages. [facility] Medical History Asthma Left groin pain AMEYA (generalized anxiety disorder) Borderline high cholesterol HTN (hypertension) Surgical History History of oral surgery History of hip surgery History of surgery on arm H/O hernia repair Family History Mother Lung cancer Social History Housing: House Alcohol intake: current Alcohol intake frequency: a few times a week Alcohol type: wine Patient Tobacco Use Status: Never used Tobacco e-Cigarette/Vaping Use: Never Used Second Hand Smoke Exposure: No service: No Current occupational status: employed Current occupation: [employer] Cognitive needs: No Hearing needs: No Vision needs: No Questionnaire PHQ-9 Over the last 2 weeks, how often have you been bothered by any of the following problems? 1. Little interest or pleasure in doing things: not at all 2. Feeling down, depressed, or hopeless: not at all 3. Trouble falling or staying asleep, or sleeping too much: not at all 4. Feeling tired or having little energy: not at all 5. Poor appetite or overeating: not at all 6. Feeling bad about yourself - or that you are a failure or have let yourself or your family down: not at all 7. Trouble concentrating on things, such as reading the newspaper or watching television: not at all 8. Moving or speaking so slowly that other people could have noticed. Or the opposite - being so fidgety or restless that you have been moving around a lot more than usual: not at all 9. Thoughts that you would be better off or of hurting yourself in some way: not at all Total score: 0 Depression Screening Interpretation: Negative Depression Screening Done: Yes 34569 - PHQ-9 Billing: Yes Source: Developed by Drs. Wes Dumont, Ruby Negrete, Axel Watts and colleagues, with an educational fortino from [employer]. Thrive Questionnaire Date Thrive assessed: 07/01/23 I am a: Patient What is your living situation today?: I have a steady place to live Within the past 12 months, did the food you bought not last and you didn't have the money to get more?: Never true Within the past 12 months, did you worry whether your food would run out before you got money to buy more?: Never true Do you have trouble paying for medicines?: No Do you have trouble getting transportation to medical appointments?: No Do you have trouble paying your heating and electricity bill?: No Do you have trouble taking care of your child, family member or friend?: No Do you have trouble with day-to-day activities such as bathing, preparing meals, shopping, managing finances, etc.?: No Are you currently unemployed and looking for a job?: No Are you interested in more education?: No Please select the resources that you would like help with: None Currently or been in a relationship where the following occur: no concerns reported THRIVE Score: 0 AUDIT C Alcohol Use Questionnaire (AUDIT-C) 1. How often do you have a drink containing alcohol?: Monthly or less 2. How many drinks containing alcohol do you have on a typical day when you are drinking?: 3 or 4 3. How often do you have six or more drinks on one occasion?: Monthly Total Score: 4 Score Reviewed/Action Taken: Yes AMEYA-7 AMB Questionnaire AMEYA-7 Date AMEYA - 7 assessed: 07/01/23 Feeling nervous, anxious, or on edge: 3 = Nearly every day Not being able to stop or control worryin = Not at all Worrying too much about different things: 0 = Not at all Trouble relaxin = Several days Being so restless that it is hard to sit still: 3 = Nearly every day Becoming easily annoyed or irritable: 2 = More than half the days Feeling afraid as if something awful might happen: 0 = Not at all Total AMEYA-7 score (0-4 normal; 5-9 mild; 10-14 moderate; 15-21 severe): 9 Source: Developed by Drs. Wes Dumont, Ruby Negrete, Axel Watts and colleagues, with an educational fortino from [employer]. AMEYA-7 Assessment Billing AMEYA-7 Assessment Tool: AMEYA-7 Assessment 15562 Review of Systems Const Denies headache(s) Eyes Denies loss of vision ENT Denies vertigo, Denies dizziness, Denies headache(s) and Denies sore throat Card Denies chest pain, Denies leg edema and Denies lightheadedness Resp Denies cough, Denies hemoptysis and Denies wheezing GI Denies abdominal pain, Denies melena, Denies constipation, Denies diarrhea and Denies vomiting Denies dysuria, Denies urinary frequency and Denies urinary urgency Musc Denies arthralgias, Denies joint swelling, Denies numbness and Denies tingling Neuro Denies Abnormal speech present, Denies behavioral changes, Denies vertigo, Denies dizziness, Denies headache(s), Denies loss of vision, Denies memory loss, Denies numbness and Denies tingling Psych Denies anxiety, Denies behavioral changes, Denies depression, Denies memory loss and Denies panic attacks Prieto/Lymph Denies easy bleeding and Denies easy bruising Aller/Immun Denies wheezing Physical exam (Primary Care) Vital Signs: Last Vital Signs Pulse 57 07/01/23 09:12 BP 102/84 07/01/23 09:12 Pulse Ox 97 07/01/23 09:12 Oxygen Delivery Method Room Air 07/01/23 09:12 BMI result Body Mass Index 29.5 Tobacco/Smoking Status: Tobacco use Status Tobacco use date assessed 07/01/23 07/01/23 09:21 Patient Tobacco Use Status Never used Tobacco 07/01/23 09:21 e-Cigarette/Vaping Use Never Used 07/01/23 09:21 PHQ-9: PHQ-9 Score PHQ-9: Total score 0 07/01/23 10:35 Depression Screening Interpretation: Negative Thrive Assessment: Date of Thrive Assessment Date Thrive assessed 07/01/23 07/01/23 09:21 Currently or been in a relationship where the following occur: no concerns reported Const General: healthy appearing, no acute distress, alert and awake Nutritional Appearance: well nourished Orientation/consciousness: oriented to person, oriented to place and oriented to time [facility] Ears: TM's normal bilaterally General nose exam: Normal nasal mucous membranes and turbinates present Eyes Conjunctivae: conjunctivae normal Sclerae: sclerae normal Pupils: Equal, round and reactive pupils present Neck Neck: Yes no lymphadenopathy and Yes no JVD Thyroid: Thyroid normal Carotids: no bruits Resp Effort & Inspection: normal respiratory effort and not tachypneic Auscultation: no crackles, no rales, no rhonchi and no wheezes Cardio Rate: regular rate Rhythm: regular rhythm Heart sounds: no murmurs and normal S1 and S2 GI Palpation (GI): Soft to palpation, nontender, no hepatomegaly and no splenomegaly Auscultation: normal bowel sounds Skin General skin exam: no rashes or lesions noted and dry skin Neuro General: oriented to person, oriented to place and oriented to time Cranial nerves: Yes Equal, round and reactive pupils present Speech: No Abnormal speech present Gait exam (Neuro): Normal gait present Motor exam (neuro): no tremor noted Extrem Right upper extremity: full ROM Left upper extremity: full ROM Right lower extremity: full ROM; no edema Left lower extremity: full ROM; no edema Ankle/foot/toe images: 2 1. HEALING SURGICAL SCAR NOTED. NO SURROUNDING ERYTHEMA OR PURULENT DRAINAGE FROM SURGICAL SCAR. Psych Mental Status: mental status grossly normal Speech and movement: Normal speech and movement present Affect: normal affect Attitude: cooperative Thought process: Normal thought process present Assessment and Plan Assessment & Plan (1) ADD (attention deficit disorder): Code(s): F98.8 - Other specified behavioral and emotional disorders with onset usually occurring in childhood and adolescence Qualifiers: Attention deficit-hyperactivity disorder type: predominantly inattentive Hyperactivity presence: present Qualified Code(s): F90.0 - Attention-deficit hyperactivity disorder, predominantly inattentive type Plan: His family reports they do not feel that Wellbutrin has been helpful for his anxiety and ADHD. At this point he does not feel he needs any stimulant ADHD medication as he is now retired in does not feel the need for medication. (2) HTN (hypertension): Code(s): I10 - Essential (primary) hypertension Qualifiers: Hypertension type: essential hypertension Qualified Code(s): I10 - Essential (primary) hypertension Plan: Blood pressure acceptable today in office will continue current dose lisinopril 10 mg. Goal blood pressure to be below 140/90 (3) HLD (hyperlipidemia): Code(s): E78.5 - Hyperlipidemia, unspecified Qualifiers: Hyperlipidemia type: mixed hyperlipidemia Qualified Code(s): E78.2 - Mixed hyperlipidemia Plan: Patient's most recent lipid panel showing much improved total cholesterol and LDL. Continues on simvastatin without any side effect. Did recently complete tear his right Achilles. Unsure if this is due to statin. Will hold statin and continue following lipid panel with goal LDL to remain below 160. (4) AMEYA (generalized anxiety disorder): Code(s): F41.1 - Generalized anxiety disorder Plan: He reports his anxiety is fairly well controlled though does have increased anxiety due to driving on highways. His needs transportation to [place] in back for specialist appointments and would like use as needed anxiety medication to drive. Orders: Orders 2 Lipid Panel Today E78.2 - Mixed hyperlipidemia Comprehensive [place]. Panel Fast Today I10 - Essential (primary) hypertension Complete Blood Count no Diff Today I10 - Essential (primary) hypertension Medications: Changed 2 From lorazepam 0.5 mg PO DAILY 4 days 4 tabs 0RF anxiety F41.1 - Generalized anxiety disorder To lorazepam 0.5 mg PO DAILY 5 tabs 0RF anxiety 5 days F41.1 - Generalized anxiety disorder Discontinued 2 doxycycline hyclate Discontinued Reason: Doctor's Order 100 mg PO BID 10 days 20 tabs 0RF On Hold 2 simvastatin Hold Comment: Doctor's Order 10 mg PO DAILY 30 days 30 tabs 1RF E78.2 - Mixed hyperlipidemia Patient Instructions: Goal: Blood pressure to remain below 140/90 Barriers: Adherence to physical activity and healthy eating habits. Coding Level of Care Code Est Pt Level 4 (32158) Diagnoses Attention deficit hyperactivity disorder (ADHD), predominantly inattentive type F90.0 Attention deficit-hyperactivity disorder type: predominantly inattentive Hyperactivity presence: present Essential hypertension I10 Hypertension type: essential hypertension Mixed hyperlipidemia E78.2 Hyperlipidemia type: mixed hyperlipidemia AMEYA (generalized anxiety disorder) F41.1 Additional Codes AMEYA-7 Assessment Billing - AMEYA-7 Assessment Tool: AMEYA-7 Assessment 08565 ([id number])
== END 2023-07-01 09:43 | disposition home or self-care (01) ==
PROVIDERS: PCP Physician Assistant; Visit Provider Physician Assistant
DX: F90.0 Attention-deficit hyperactivity disorder, predominantly inattentive type (principal); I10 Essential (primary) hypertension; E78.2 Mixed hyperlipidemia; F41.1 Generalized anxiety disorder
CPT/HCPCS: 99214

== ENCOUNTER 2023-07-28 09:10 | Outpatient (AMB) | payer BC, SELFPAY ==
--- NOTE | 2023-07-28 09:15 | MHC.OFFVIS ---
Vital Signs 07/28/23 09:16 Height 5 ft 10 in Weight 205 lb BMI 29.4 Intake Visit Reasons: OV - left achilles repair on 04/01/23/wound care Intake Note: Wes is a 57 year old male who presents today with crutches for a wound check s/p left achilles repair on 04/01/23. Patient reports he is doing well, however he is having some swelling around his ankle. . Allergies penicillin V Allergy (Intermediate, Verified 07/28/23 09:34) hives HPI HPI OV - left achilles repair on 04/01/23/wound care: Details: 58-year-old male who presents in the office today on crutches for a wound check; 5 months status post left Achilles tendon repair, which was performed on 04/01/[address] Aguayo. I last saw the patient in the office on 06/25/2023 when he was to continue dry dressing changes and instructed to complete his course of antibiotics. While in the office today the patient reports he is doing well. He does reports mild edema around the left ankle. [facility] Medical History Asthma Left groin pain AMEYA (generalized anxiety disorder) Borderline high cholesterol HTN (hypertension) Surgical History History of oral surgery History of hip surgery History of surgery on arm H/O hernia repair Family History Mother Lung cancer Social History Housing: House Alcohol intake: current Alcohol intake frequency: a few times a week Alcohol type: wine Patient Tobacco Use Status: Never used Tobacco e-Cigarette/Vaping Use: Never Used Second Hand Smoke Exposure: No service: No Current occupational status: employed Current occupation: [employer] Cognitive needs: No Hearing needs: No Vision needs: No Review of Systems Const All systems reviewed & are unremarkable except as noted in HPI and below Physical Exam Vital Signs: BMI result Body Mass Index 29.4 Const General: cooperative, healthy appearing and no acute distress Resp Effort & Inspection: normal respiratory effort and able to speak in complete sentences Cardio Rate: regular rate Peripheral pulses: Peripheral pulses 2+ throughout GI Palpation (GI): Soft to palpation Skin Lesions: no lesions Rashes: no rashes Extrem Other: Left Achilles: Incision site is clean, and dry. Thin layer of superficial eschar tissue pea sized. No purulent discharge. No erythema. Negative Lazaro?s test. Sensation intact. Pedal pulse intact. Assessment & Plan Assessment & Plan (1) S/P Achilles tendon repair: Onset Date: ~04/01/23 Comment: Left Achilles tendon repair NE Code(s): Z98.890 - Other specified postprocedural states Category: Surgical Plan Mr. Berrios is a 58-year-old male who presents in the office today on crutches for a wound check; 5 months status post left Achilles tendon repair, which was performed on 04/01/[address] Aguayo. I last saw the patient in the office on 06/25/2023 when he was to continue dry dressing changes and instructed to complete his course of antibiotics. While in the office today the patient reports he is doing well. He does reports mild edema around the left ankle. The patient will continue to attend physical therapy. He will continue to monitor for the possibility of wound breakdown. At today?s visit the area looks healthy and is healing well with no signs of infection. He was re-educated on signs of infection, which are as follows but not limited to erythema, edema, drainage, or warmth. If he is to experience any of these symptoms, he must contact the office immediately or present to the ED. Follow-up will be in four weeks, or sooner if needed. Patient Instructions: Scribed by Anni Steward medical assistant internal medicine, for Maryann Howell PA-C on 07/28/2023 at 9:12 am, EST. Coding Level of Care Code Est Pt Level 3 (60720) Diagnoses S/P Achilles tendon repair Z98.890
[2023-07-28 09:16] VITALS: BMI 29.4
== END 2023-07-28 09:51 | disposition home or self-care (01) ==
PROVIDERS: PCP Physician Assistant; Visit Provider Physician Assistant
DX: Z47.89 Encounter for other orthopedic aftercare (principal); S86.012D Strain of left Achilles tendon, subsequent encounter
CPT/HCPCS: 99213

== ENCOUNTER → 2023-07-28 09:10 | Outpatient (BNVA) | payer BC, SELFPAY | PROVIDERS: PCP Physician Assistant; Visit Provider Physician Assistant ==

== ENCOUNTER 2023-08-19 10:06 | Day surgery (SDC) | payer BC, SELFPAY ==
--- NOTE | 2023-08-18 12:05 | HO.ANESPROP2 ---
Documented by User: Christie Yun NP 08/18/23 12:06 HPI - Anesthesia Eval Consult details Narrative: 58yo M for Colonoscopy PMFSH Active Problems Active Problems: All Active Problems S/P Achilles tendon repair (Acute ~04/01/23) Rupture of left Achilles tendon (Acute) Colon cancer screening (Acute) HLD (hyperlipidemia) (Acute) ADD (attention deficit disorder) (Acute) Annual physical exam (Acute) Inguinal hernia (Acute) Abnormal perception (Acute) Spastic bladder (Acute) Annual physical exam (Acute) Intermittent headache (Acute) Left groin pain (Acute) AMEYA (generalized anxiety disorder) (Acute) HTN (hypertension) (Acute) Borderline high cholesterol (Acute) Past Medical History Medical History Asthma Left groin pain AMEYA (generalized anxiety disorder) Borderline high cholesterol HTN (hypertension) Family History Family History Mother Lung cancer Family history of problems with anesthesia: No Surgical History Surgical History History of oral surgery History of hip surgery History of surgery on arm H/O hernia repair History of Problems with Anesthesia: No Social History Social History Housing: House Alcohol intake: current Alcohol intake frequency: a few times a week Alcohol type: wine Patient Tobacco Use Status: Never used Tobacco e-Cigarette/Vaping Use: Never Used Second Hand Smoke Exposure: No Use of substances other than those prescribed or required for medical reasons: No Are you DNR?: No Advance Directives: No Advance Directives Information Provided: Yes service: No Current occupational status: employed Current occupation: [employer] Cognitive needs: No Hearing needs: No Vision needs: No Meds Allergies Allergy/AdvReac Type Severity Reaction Status Date / Time penicillin V Allergy Intermediate hives Verified 07/28/23 09:34 Home Medications ?Medication ?Instructions ?Recorded ?Confirmed ?Last Taken ?Type propranolol 10 mg tablet 10 mg PO BID PRN Anxiety 04/01/23 07/01/23 Unknown History Assessment and Plan Assessment Anesthesia Assessment: Chart Reviewed Final Anesthetic Review Family History of Problems with Anesthesia: No History of Problems with Anesthesia: No Documented by User: Ania Magaña MD 08/19/23 10:38 [facility] Past Medical History Medical History Asthma Left groin pain AMEYA (generalized anxiety disorder) Borderline high cholesterol HTN (hypertension) Family History Family History Mother Lung cancer Surgical History Surgical History History of oral surgery History of hip surgery History of surgery on arm H/O hernia repair Social History Social History Housing: House Alcohol intake: current Alcohol intake frequency: a few times a week Alcohol type: wine Patient Tobacco Use Status: Never used Tobacco e-Cigarette/Vaping Use: Never Used Second Hand Smoke Exposure: No Use of substances other than those prescribed or required for medical reasons: No Are you DNR?: No Advance Directives: No Advance Directives Information Provided: Yes service: No Current occupational status: employed Current occupation: [employer] Cognitive needs: No Hearing needs: No Vision needs: No Meds Allergies Allergy/AdvReac Type Severity Reaction Status Date / Time penicillin V Allergy Intermediate hives Verified 07/28/23 09:34 Home Medications ?Medication ?Instructions ?Recorded ?Confirmed ?Last Taken ?Type propranolol 10 mg tablet 10 mg PO BID PRN Anxiety 04/01/23 07/01/23 Unknown History Exam Airway Heart: rrr Lungs: cta Assessment and Plan Assessment Anesthesia Assessment: Anesthesia Plan Discussed Final Anesthetic Review NPO: Yes ASA Class: III Final Preanesthetic Review: No Changes in Pt Med Stat, Meds/Allgs Chart Reviewed, Consent Obtained/Reviewed and Anes Risks/Benef Reviewed Patient Risk: Intermediate Procedure Risk: Low Anesthetic Plan Anesthetic Plan: MAC: Disposition: Standard PACU
[2023-08-19 10:20] VITALS: BMI 27.4
[2023-08-19 10:36] VITALS: BP 140/75; PULSE 58; RESP 16; TEMP 36.6; O2SAT 98
[2023-08-19] MEDS: Lactated Ringers 1,000 ML 100 ML IVCONT (10:51)
--- NOTE | 2023-08-19 11:41 | PC.NURSE ---
24hr update documented on paper
[2023-08-19 12:11] VITALS: BP 84/39; PULSE 52; RESP 16; TEMP 36.9; O2SAT 96
--- NOTE | 2023-08-19 12:13 | PM.OP ---
Brief Operative Note Date of Service: 08/19/23 Pre-op diagnosis: Screening Post-op diagnosis: other (Diverticulosis) Procedure: Colonoscopy to the cecum and TI Surgeon: Wes Parekh MD Anesthesia: MAC Was an Metal Neutralizer used for this Procedure?: No Estimated blood loss (mL): 0 Pathology: none sent Condition: stable Disposition: PACU
[2023-08-19 12:26] VITALS: BP 114/69; PULSE 54; RESP 16; TEMP 36.6; O2SAT 96
--- NOTE | 2023-08-19 12:31 | OP_ITS ---
DATE OF SERVICE: 08/19/2023 SURGEON: Wes Parekh MD INDICATIONS: The patient presents for evaluation of colorectal cancer screening and a personal history of a tubular adenoma of the colon. Full consent has been obtained from him for this, including risks of bleeding and perforation. PREOPERATIVE DIAGNOSIS: POSTOPERATIVE DIAGNOSIS: PROCEDURE PERFORMED: Colonoscopy to the cecum and terminal ileum. ESTIMATED BLOOD LOSS: COMPLICATIONS: ANESTHESIA: Monitored anesthesia care. ASSISTANTS: SPECIMENS: PREOPERATIVE DIAGNOSES: Personal history of tubular adenoma of the colon and colorectal cancer screening. POSTOPERATIVE DIAGNOSES: Personal history of tubular adenoma of the colon, colorectal cancer screening, sigmoid diverticulosis, and internal hemorrhoids. DESCRIPTION OF PROCEDURE: The patient was placed in the left lateral decubitus position. The digital rectal exam revealed no abnormalities. The Olympus video pediatric colonoscope was then entered into the rectum and advanced easily to the cecum. Once in the cecum, I did identify normal-appearing cecal pouch with appendiceal orifice and a normal-appearing ileocecal valve. The terminal ileum was cannulated and appeared normal. Scope was withdrawn back in the colon. The entire cecum and ileocecal valve appeared normal. The scope was slowly withdrawn assessing all mucosal surfaces carefully. Preparation was excellent. I did not visualize any sign of polyps, colitis, nor angiodysplasias. There was an occasional diverticula noted in the sigmoid colon. In the rectum, scope was retroflexed, visualizing internal hemorrhoids, but no other pathology. The rectal mucosa appeared normal. The scope was straightened and withdrawn from the patient. He tolerated the procedure well and was returned to the recovery area in stable condition. IMPRESSION: 1. Mild diverticulosis. 2. Small internal hemorrhoids. PLAN: Given his previous history, I would recommend a followup colonoscopy in 5 years. He will, otherwise, see me on a p.r.n. basis. MD JOSE Cordero/MIRANDA / [phone]
== END 2023-08-19 12:54 | disposition home or self-care (01) ==
PROVIDERS: PCP Physician Assistant; Visit Provider Internal Medicine
PROC: 0DJD8ZZ Inspection of Lower Intestinal Tract, Via Natural or Artificial Opening Endoscopic (ICD-10-PCS; CPT 45378; principal; 2023-08-19 11:20)
DX: Z12.11 Encounter for screening for malignant neoplasm of colon (principal); K57.30 Diverticulosis of large intestine without perforation or abscess without bleeding; K64.8 Other hemorrhoids; Z86.010 Personal history of colon polyps; E78.5 Hyperlipidemia, unspecified; I10 Essential (primary) hypertension; Z79.02 Long term (current) use of antithrombotics/antiplatelets; Z79.899 Other long term (current) drug therapy
CPT/HCPCS: 45378; J2704; J3010

== ENCOUNTER 2023-09-03 09:54 | Outpatient (AMB) | payer BC, SELFPAY ==
--- NOTE | 2023-09-03 09:56 | A.OFFVIS_ITS ---
Intake Visit Reasons: OV-left achilles repair on 04/01/23/wound care Intake Note: Wes is a 57 year old male who presents today with crutches for a wound check s/p left achilles repair on 04/01/23. Patient reports he is doing well, no pain or discomfort at this time. Allergies penicillin V Allergy (Intermediate, Verified 09/03/23 09:59) hives HPI HPI OV-left achilles repair on 04/01/23/wound care: Details: 58-year-old male who presents in the office today for a wound check; 5 months status post left Achilles tendon repair, which was performed on 04/01/[address] Aguayo. I last saw the patient in the office on 07/28/23 when he was encouraged to continue to work with physical therapy. He was also instructed to continue to monitor for wound breakdown. ? ? While in the office today, the patient reports he is doing well with no pain or discomfort. He confirms attending physical therapy and states it has been going well. Confirms mild numbness in his left great toe at night but reports it subsides.? [facility] Medical History Asthma Left groin pain AMEYA (generalized anxiety disorder) Borderline high cholesterol HTN (hypertension) Surgical History History of oral surgery History of hip surgery History of surgery on arm H/O hernia repair Family History Mother Lung cancer Social History Housing: House Alcohol intake: current Alcohol intake frequency: a few times a week Alcohol type: wine Patient Tobacco Use Status: Never used Tobacco e-Cigarette/Vaping Use: Never Used Second Hand Smoke Exposure: No service: No Current occupational status: employed Current occupation: [email or web address] Cognitive needs: No Hearing needs: No Vision needs: No Review of Systems Const All systems reviewed & are unremarkable except as noted in HPI and below Physical Exam Const General: cooperative, healthy appearing and no acute distress Resp Effort & Inspection: normal respiratory effort and able to speak in complete sentences Cardio Rate: regular rate Peripheral pulses: Peripheral pulses 2+ throughout GI Palpation (GI): Soft to palpation Skin Lesions: no lesions Rashes: no rashes Extrem Other: Left Achilles: Incision site is clean, and dry. Thin layer of superficial eschar tissue pea sized. No purulent discharge. No erythema. Negative Lazaro?s test. Sensation intact. Pedal pulse intact. Assessment & Plan Assessment & Plan (1) S/P Achilles tendon repair: Onset Date: ~04/01/23 Comment: Left Achilles tendon repair NE Code(s): Z98.890 - Other specified postprocedural states Category: Surgical Plan Mr. Berrios is a 58-year-old male who presents in the office today for a wound check; 5 months status post left Achilles tendon repair, which was performed on 04/01/[address] Aguayo. I last saw the patient in the office on 07/28/23 when he was encouraged to continue to work with physical therapy. He was also instr ucted to continue to monitor for wound breakdown. ? While in the office today, the patient reports he is doing well with no pain or discomfort. He confirms attending physical therapy and states it has been going well. Confirms mild numbness in his left great toe at night but reports it subsides.? ? The patient will continue to work with physical therapy. He continues to have some scabbing over the Achilles tendon incision site that he is having difficulty getting to heal. He reports hitting the site on a dog cage causing more bleeding and scabbing. A prescription for silver nitrate was sent to the pharmacy. This is to be applied to the area two to three times weekly. Follow-up will be in six weeks, or sooner if needed. ? Medications: New silver nitrate 10% 1 appl topical 2XW 30 mL 0RF 3 weeks Patient Instructions: Scribed by Anni Steward medical safety director, for Maryann Howell PA-C on 09/03/2023 at 9:57 am, EST.? Coding Level of Care Code Est Pt Level 3 (77717) Diagnoses S/P Achilles tendon repair Z98.890
== END 2023-09-03 10:21 | disposition home or self-care (01) ==
PROVIDERS: PCP Physician Assistant; Visit Provider Physician Assistant
DX: Z47.89 Encounter for other orthopedic aftercare (principal); S86.012A Strain of left Achilles tendon, initial encounter
CPT/HCPCS: 99213

== ENCOUNTER → 2023-09-03 09:54 | Outpatient (BNVA) | payer BC, SELFPAY | PROVIDERS: PCP Physician Assistant; Visit Provider Physician Assistant ==

== ENCOUNTER 2023-10-09 06:34 | Outpatient (REF) | payer BC, SELFPAY ==
[2023-10-09 10:09] LABS: Hematocrit 42.7 % (42.0-52.0); Hemoglobin 14.1 g/dl (14.0-18.0); Mean Corpuscular Hemoglobin 30.8 pg (27.0-33.0); Mean Corpuscular Volume 93.2 fL (80.0-98.0); Mean Platelet Volume 10.9 fL (9.4-12.4); Platelet Count 276 X10*3/uL (160-400); Red Blood Count 4.58 X10*6/uL (4.60-5.80); Red Cell Distribution Width 12.8 % (11.0-16.0); White Blood Count 5.3 X10*3/uL (4.8-10.8)
[2023-10-09 10:41] LABS: Alanine Aminotransferase 16 U/L (0-40); Albumin Level 4.1 g/dL (3.5-5.0); Alkaline Phosphatase 63 U/L (39-117); Anion Gap 10 (12-20); Aspartate Amino Transferase 19 U/L (5-37); Bilirubin Total 0.6 mg/dL (0.0-1.0); Blood Urea Nitrogen 21 mg/dL (9-16); Calcium 9.6 mg/dL (8.4-10.2); Carbon Dioxide 28 mmol/L (22-29); Chloride 104 mmol/L (96-108); Cholesterol 214 mg/dL (<200); Estimated Glomerular Filt Rate 57; Glucose Fasting 97 mg/dL (60-99); HDL Cholesterol 63 mg/dL (>40); LDL Cholesterol Calculated 135 mg/dL (<100); Potassium 4.5 mmol/L (3.3-5.1); Sodium 137 mmol/L (135-145); Total Protein 6.6 g/dL (6.5-8.0); Triglycerides 81 mg/dL (<150)
== END 2023-10-09 06:35 | disposition home or self-care (01) ==
LOC: HO.HMGCLDS 06:34
PROVIDERS: PCP Physician Assistant; Visit Provider Physician Assistant
DX: E78.2 Mixed hyperlipidemia (principal); I10 Essential (primary) hypertension
CPT/HCPCS: 36415; 80053; 80061; 85027

== ENCOUNTER 2023-10-13 07:44 | Outpatient (AMB) | payer BC, SELFPAY ==
[2023-10-13 07:52] VITALS: BP 118/62; PULSE 60; O2SAT 98; BMI 26.3
--- NOTE | 2023-10-13 07:52 | MHC.PC.OV ---
Vital Signs 10/13/23 07:52 Height 5 ft 10 in Weight 183 lb BMI 26.3 BP 118/62 Blood Pressure Location Lt brachial Position Sitting Pulse 60 Pulse Source Pulse Oximeter Pulse Oximetry (%) 98 Oxygen Delivery Method Room Air Intake Visit Reasons: PE Allergies penicillin V Allergy (Intermediate, Verified 10/13/23 08:05) hives Medication List - Last Reconciled 10/13/23 by Vignesh Trevino PA-C bupropion HCl SR (Wellbutrin SR) 200 mg PO DAILY 90 days lisinopril 10 mg PO DAILY lorazepam 0.5 mg PO DAILY 10 days propranolol 10 mg PO BID PRN silver nitrate 10% 1 appl topical 2XW 3 weeks silver sulfadiazine 1% (Silvadene) 1 appl topical BID PRN simvastatin 10 mg PO DAILY 30 days solifenacin 5 mg PO DAILY Tobacco use date assessed: 07/01/23 Dental Screening Dental Screen Date: 10/13/23 Did you have a dental visit in the last 12 months?: Yes Did you have a dental problem in the last 6 months where you did not have access to dental care?: No Was dental information given to patient?: Patient has dentist HPI PE HPI Details Patient is a 58 year male here today a routine annual physical.? Patient has a past history significant for hypertension , spastic bladder, generalized anxiety disorder. .. Hypertension:? Blood pressure today in office acceptable.? Continues on lisinopril 10 mg with good effect. He does report over the last several weeks feeling somewhat dizzy when he stands up. PLAN: Advised on increasing fluids and his daily intake. If still have dizziness will consider reducing dose of lisinopril down to 5 mg .. Hyperlipidemia :? Has been taken off of statin due to an Achilles rupture thought to be secondary to statin. He continues with dietary and lifestyle modifications and has lost 20 lb over the last 6 months. PLAN: Continue to manage his cholesterol with dietary modifications. Goal LDL is to be below 160 .. Anxiety/ adhd:? ADHD has been fairly well controlled. Now is retired and feels that he does not need any stimulant medication to keep him focused. Still does have anxiety specially when he drives. .. Spastic bladder:? Has been stable with the use of solifenacin daily. Bladder spasms worsen with certain beverages. Colorectal cancer screening: Did have colonoscopy [address]arekh, - repeat 5 years Vaccines: Up-to-date with COVID vaccine, up-to-date with tetanus, up-to-date with flu, needs Shingrex PFSH Medical History Asthma Left groin pain AMEYA (generalized anxiety disorder) Borderline high cholesterol HTN (hypertension) Surgical History History of oral surgery History of hip surgery History of surgery on arm H/O hernia repair Family History Mother Lung cancer Social History (Updated 10/13/23 @ 08:10 by Vignesh Trevino PA-C) Housing: House Alcohol intake: current Alcohol intake frequency: a few times a week Alcohol type: beer and wine Patient Tobacco Use Status: Never used Tobacco Tobacco use type: Cigarette e-Cigarette/Vaping Use: Never Used Second Hand Smoke Exposure: No service: No Current occupational status: retired Cognitive needs: No Hearing needs: No Vision needs: No Questionnaire PHQ-9 Over the last 2 weeks, how often have you been bothered by any of the following problems? 1. Little interest or pleasure in doing things: not at all 2. Feeling down, depressed, or hopeless: not at all 3. Trouble falling or staying asleep, or sleeping too much: not at all 4. Feeling tired or having little energy: not at all 5. Poor appetite or overeating: not at all 6. Feeling bad about yourself - or that you are a failure or have let yourself or your family down: not at all 7. Trouble concentrating on things, such as reading the newspaper or watching television: not at all 8. Moving or speaking so slowly that other people could have noticed. Or the opposite - being so fidgety or restless that you have been moving around a lot more than usual: not at all 9. Thoughts that you would be better off or of hurting yourself in some way: not at all Total score: 0 Depression Screening Interpretation: Negative Depression Screening Done: Yes 73890 - PHQ-9 Billing: Yes Source: Developed by Drs. Wes Dumont, Ruby B.Axel Carmen and colleagues, with an educational fortino from [employer]. Thrive Questionnaire Date Thrive assessed: 10/13/23 I am a: Patient What is your living situation today?: I have a steady place to live Within the past 12 months, did the food you bought not last and you didn't have the money to get more?: Never true Within the past 12 months, did you worry whether your food would run out before you got money to buy more?: Never true Do you have trouble paying for medicines?: No Do you have trouble getting transportation to medical appointments?: No Do you have trouble paying your heating and electricity bill?: No Do you have trouble taking care of your child, family member or friend?: No Do you have trouble with day-to-day activities such as bathing, preparing meals, shopping, managing finances, etc.?: No Are you currently unemployed and looking for a job?: No Are you interested in more education?: No Please select the resources that you would like help with: None Currently or been in a relationship where the following occur: No concerns reported THRIVE Score: 0 AUDIT C Alcohol Use Questionnaire (AUDIT-C) 1. How often do you have a drink containing alcohol?: 2-3 times a week 2. How many drinks containing alcohol do you have on a typical day when you are drinking?: 3 or 4 3. How often do you have six or more drinks on one occasion?: Monthly Total Score: 6 AMEYA-7 AMB Questionnaire AMEYA-7 Date AMEYA - 7 assessed: 10/13/23 Feeling nervous, anxious, or on edge: 2 = More than half the days Not being able to stop or control worryin = Not at all Worrying too much about different things: 2 = More than half the days Trouble relaxin = Not at all Being so restless that it is hard to sit still: 0 = Not at all Becoming easily annoyed or irritable: 1 = Several days Feeling afraid as if something awful might happen: 1 = Several days Total AMEYA-7 score (0-4 normal; 5-9 mild; 10-14 moderate; 15-21 severe): 6 Source: Developed by Drs. Wes Dumont, Axel Denton and colleagues, with an educational fortino from [employer]. AMEYA-7 Assessment Billing AMEYA-7 Assessment Tool: AMEYA-7 Assessment 93284 Review of Systems Const Denies body aches, Denies chills, Denies excessive sweating, Denies fatigue, Denies fever(s) and Denies headache(s) Eyes Denies blurry vision ENT Denies dysphagia, Denies vertigo, Denies dizziness, Denies headache(s), Denies hearing loss and Denies tinnitus Card Denies chest pain, Denies chest pain with activity, Denies syncope, Denies irregular heart rhythm and Denies dyspnea Resp Denies chest congestion, Denies cough, Denies hemoptysis, Denies dyspnea and Denies wheezing GI Denies abdominal pain, Denies melena, Denies hematochezia, Denies coffee ground emesis, Denies dysphagia, Denies diarrhea, Denies nausea and Denies vomiting Denies difficulty urinating, Denies dysuria, Denies urinary frequency, Denies urinary hesitancy and Denies urinary urgency Musc Denies arthralgias, Denies limited range of motion, Denies muscle cramps and Denies muscle weakness Skin/Breast Denies rash and Denies skin ulcer Neuro Denies Abnormal speech present, Denies confusion, Denies vertigo, Denies dizziness, Denies syncope, Denies headache(s), Denies memory loss and Denies seizure-like activity Psych Denies anxiety, Denies confusion, Denies depression, Denies memory loss, Denies panic attacks and Denies paranoia Endo Denies excessive sweating, Denies fatigue, Denies flushing, Denies polydipsia and Denies polyuria Aller/Immun Denies wheezing Physical exam (Primary Care) Vital Signs: Last Vital Signs Pulse 60 10/13/23 07:52 BP 118/62 10/13/23 07:52 Pulse Ox 98 10/13/23 07:52 Oxygen Delivery Method Room Air 10/13/23 07:52 BMI result Body Mass Index 26.3 Tobacco/Smoking Status: Tobacco use Status Tobacco use date assessed 07/01/23 10/13/23 07:57 Patient Tobacco Use Status Never used Tobacco 10/13/23 07:57 Tobacco use type Cigarette 10/13/23 07:57 e-Cigarette/Vaping Use Never Used 10/13/23 07:57 PHQ-9: PHQ-9 Score PHQ-9: Total score 0 10/13/23 07:57 Depression Screening Interpretation: Negative Thrive Assessment: Date of Thrive Assessment Date Thrive assessed 10/13/23 10/13/23 07:57 Currently or been in a relationship where the following occur: No concerns reported Const General: cooperative, comfortable, no acute distress, alert and awake; No confusion Orientation/consciousness: oriented to person, oriented to place, patient oriented x3 and No confusion HENMT Head: Yes normocephalic Ears: external ears normal and TM's normal bilaterally Face and sinus: No sinus tenderness Mouth: Normal oral and palatal mucosa present and tongue normal Teeth and gingiva: dentition normal and gingiva normal Throat: Yes posterior oropharynx normal, Yes tonsils normal and Yes uvula midline Eyes Conjunctivae: conjunctivae normal Sclerae: sclerae normal Pupils: Equal, round and reactive pupils present EOM: EOMs intact bilaterally Direct Ophthalmoscopy: No no photophobia Neck Neck: Yes no lymphadenopathy, No tender and Yes no JVD Thyroid: Thyroid normal Carotids: no bruits Chest Chest palpation & inspection: no tenderness Resp Effort & Inspection: normal respiratory effort, no audible wheezes, not labored and no stridor Auscultation: no crackles, no rales, no rhonchi and no wheezes Cardio Jugular venous distension: no JVD Rate: regular rate, not bradycardic and not tachycardic Rhythm: regular rhythm Bruits: no carotid bruits Peripheral pulses: Peripheral pulses 2+ throughout GI Inspection: Yes normal to inspection, No abdominal wall ecchymosis and No visible herniation Palpation (GI): Soft to palpation, nontender, no guarding, not rigid and No hepatosplenomegaly present Auscultation: normoactive bowel sounds General: Yes no CVA tenderness Back/Spine/Pelvis Back: no CVA tenderness and No back tenderness Cervical Spine: cervical ROM normal Thoracic/Lumbar Spine: thoracic and lumbar spine normal to inspection, straight leg raise negative bilaterally, No thoraco-lumbar ROM limited and No lumbar spinal tenderness Skin Lesions: no lesions Rashes: no rashes Wounds: no wounds Neuro General: oriented to person, oriented to place, patient oriented x3, CN's II-XI intact bilaterally and No confusion Cranial nerves: Yes Equal, round and reactive pupils present and Yes Normal accommodation reflex present Cognition (Neuro): normal cognition Speech: No Abnormal speech present Gait exam (Neuro): Normal gait present Motor exam (neuro): 5/5 motor strength present throughout Extrem Right upper extremity: full ROM; no cyanosis Left upper extremity: full ROM; no cyanosis Right lower extremity: no edema Left lower extremity: no edema Psych Appearance: grossly normal Mental Status: mental status grossly normal Affect: normal affect Attitude: cooperative Thought process: Normal thought process present Assessment and Plan Assessment & Plan (1) ADD (attention deficit disorder): Code(s): F98.8 - Other specified behavioral and emotional disorders with onset usually occurring in childhood and adolescence Qualifiers: Hyperactivity presence: present Attention deficit-hyperactivity disorder type: predominantly inattentive Qualified Code(s): F90.0 - Attention-deficit hyperactivity disorder, predominantly inattentive type Plan: Continues on Wellbutrin with good effect. He has been able to stay away from stimulant medication for his ADD. He is now retired and has less on his plate (2) HTN (hypertension): Code(s): I10 - Essential (primary) hypertension Qualifiers: Hypertension type: essential hypertension Qualified Code(s): I10 - Essential (primary) hypertension Plan: Blood pressure acceptable today in office will continue current dose lisinopril 10 mg. Of note does report recent episodes of dizziness when standing. We attributed this to a fluid deficit thus he will try to increase his fluid intake. If still having dizziness will decrease his lisinopril dose. Goal blood pressure to be below 140/90 (3) HLD (hyperlipidemia): Code(s): E78.5 - Hyperlipidemia, unspecified Qualifiers: Hyperlipidemia type: mixed hyperlipidemia Qualified Code(s): E78.2 - Mixed hyperlipidemia Plan: Has a history of hyperlipidemia. Has lost 20 lb since making dietary and lifestyle modifications. Most recent lipid panel showing borderline cholesterol and LDL. Was taken off statin due to possible side effect of Achilles rupture Will continue to hold statin and continue following lipid panel with goal LDL to remain below 160. (4) AMEYA (generalized anxiety disorder): Code(s): F41.1 - Generalized anxiety disorder Plan: He reports his anxiety is fairly well controlled though does have increased anxiety due to driving on highways. He has reduced his coffee caffeine intake. Orders: Orders Lipid Panel Today E78.2 - Mixed hyperlipidemia Microalbumin, Random (w Creat) Today I10 - Essential (primary) hypertension Comprehensive [place]. Panel Fast Today I10 - Essential (primary) hypertension Complete Blood Count no Diff Today I10 - Essential (primary) hypertension Prostate Specific Antigen Scr Today I10 - Essential (primary) hypertension, Z12.5 - Encounter for screening for malignant neoplasm of prostate Medications: New blood pressure monitor As directed 1 ea 0RF I10 - Essential (primary) hypertension Refilled solifenacin 5 mg PO DAILY 90 tabs 2RF N32.89 - Other specified disorders of bladder Patient Instructions: Goal: Blood pressure to remain below 140/90, LDL to be below 160 Barriers: Adherence to physical activity and healthy eating habits Coding Level of Care Code Est Pt Prev Care 40-64y(19412) Diagnoses Attention deficit hyperactivity disorder (ADHD), predominantly inattentive type F90.0 Hyperactivity presence: present Attention deficit-hyperactivity disorder type: predominantly inattentive Essential hypertension I10 Hypertension type: essential hypertension Mixed hyperlipidemia E78.2 Hyperlipidemia type: mixed hyperlipidemia AMEYA (generalized anxiety disorder) F41.1 Additional Codes AMEYA-7 Assessment Billing - AMEYA-7 Assessment Tool: AMEYA-7 Assessment 18521 ([id number])
== END 2023-10-13 08:30 | disposition home or self-care (01) ==
PROVIDERS: PCP Physician Assistant; Visit Provider Physician Assistant
DX: Z00.00 Encounter for general adult medical examination without abnormal findings (principal); I10 Essential (primary) hypertension; F90.0 Attention-deficit hyperactivity disorder, predominantly inattentive type; E78.2 Mixed hyperlipidemia; F41.1 Generalized anxiety disorder
CPT/HCPCS: 99396

== ENCOUNTER 2023-10-20 12:10 | Outpatient (AMB) | payer BC, SELFPAY ==
--- NOTE | 2023-10-20 12:28 | MHC.OFFVIS ---
Intake Visit Reasons: OV - left achilles repair 04/01/23 NE Intake Note: Wes is a 58 year old male who presents today with crutches for a wound check s/p left achilles repair on 04/01/23. Patient reports he is doing well. Incision site looks good, no redness or inflammation. Allergies penicillin V Allergy (Intermediate, Verified 10/20/23 12:32) hives HPI HPI OV - left achilles repair 04/01/23 NE: Details: 58-year-old male who presents in the office today for a wound check; 7?months status post left Achilles tendon repair, which was performed on 04/01/[address] Aguayo. I last saw the patient in the office on 09/03/23 when he was to continue to work with physical therapy. He was also given a prescription for silver nitrate to be applied to the area two to three times weekly?to aid with healing. ? ? While in the office today, the patient reports he is doing well. He confirms the incision site looks good. He denies erythema or inflammation at the site.? [facility] Medical History Asthma Left groin pain AMEYA (generalized anxiety disorder) Borderline high cholesterol HTN (hypertension) Surgical History History of oral surgery History of hip surgery History of surgery on arm H/O hernia repair Family History Mother Lung cancer Social History Housing: House Alcohol intake: current Alcohol intake frequency: a few times a week Alcohol type: beer and wine Patient Tobacco Use Status: Never used Tobacco Tobacco use type: Cigarette e-Cigarette/Vaping Use: Never Used Second Hand Smoke Exposure: No service: No Current occupational status: retired Cognitive needs: No Hearing needs: No Vision needs: No Review of Systems Const All systems reviewed & are unremarkable except as noted in HPI and below Physical Exam Const General: cooperative, healthy appearing and no acute distress Resp Effort & Inspection: normal respiratory effort and able to speak in complete sentences Cardio Rate: regular rate Peripheral pulses: Peripheral pulses 2+ throughout GI Palpation (GI): Soft to palpation Skin Lesions: no lesions Rashes: no rashes Extrem Other: Left Achilles: Incision site is clean, dry, and intact. No open areas. Prior wound is completely healed. No erythema. Negative Lazaro?s test. Sensation intact. Pedal pulse intact. Assessment & Plan Assessment & Plan (1) S/P Achilles tendon repair: Onset Date: ~04/01/23 Comment: Left Achilles tendon repair NE Code(s): Z98.890 - Other specified postprocedural states Category: Surgical Plan Mr. Berrios is a 58-year-old male who presents in the office today for a wound check; 7?months status post left Achilles tendon repair, which was performed on 04/01/[address] Aguayo. I last saw the patient in the office on 09/03/23 when he was to continue to work with physical therapy. He was also given a prescription for silver nitrate to be applied to the area two to three times weekly?to aid with healing. ? ? While in the office today, the patient reports he is doing well. He confirms the incision site looks good. He denies erythema or inflammation at the site.? ? The patient can continue to attend physical therapy until all sessions are complete. He can discontinue the use of the silver nitrate over the area as it has completely healed. Follow-up will be PRN, or sooner if needed. ? Patient Instructions: Scribed by Anni Steward medical chief technician, for Maryann Howell PA-C on 10/20/2023 at 12:33 pm, EST.? Coding Level of Care Code Est Pt Level 3 (90671) Diagnoses S/P Achilles tendon repair Z98.890
== END 2023-10-20 12:54 | disposition home or self-care (01) ==
PROVIDERS: PCP Physician Assistant; Visit Provider Physician Assistant
DX: S86.012D Strain of left Achilles tendon, subsequent encounter (principal)
CPT/HCPCS: 99213

== ENCOUNTER → 2023-10-20 12:10 | Outpatient (BNVA) | payer BC, SELFPAY | PROVIDERS: PCP Physician Assistant; Visit Provider Physician Assistant ==

== ENCOUNTER 2024-04-08 06:42 | Outpatient (REF) | payer BC, SELFPAY ==
--- OUTSIDE RECORDS SUMMARY | 2024-04-08 06:45 | XMS_ITS ---
Author Organization [facility] Address [address] [place] [id number] Care Team Providers Care Cookie Breaker Name Role Phone Vignesh Trevino Primary Care Provider UnavailDevora Martin Unavailable [phone] ALLERGIES Allergen (clinical drug ingredient) Drug/Non Drug Allergy documented on EMR Reaction Allergy Type Onset Date Status Penicillin Unknown Drug Allergy Active MEDICATIONS Medication SIG (Take, Route, Frequency, Duration) Notes Start Date End Date Status buPROPion HCl ER (SR) 200 MG Oral for 90 Unknown Simvastatin 10 MG TAKE 1 TABLET (10 MG ) ORALLY DAILY FOR 30 DAYS Oral for 90 Unknown Propranolol HCl 10 MG TAKE 1 TABLET BY M OUTH TWICE A DAY FOR 7 DAYS Oral for 7 Unknown Solifenacin Succinate 5 MG Oral for 90 Unknown Lisinopril 10 MG TAKE 1 TABLET BY ALONDRA TH EVERY DAY Oral for 90 Unknown Multivitamin Adult - 1 tablet Orally Onc e a day for 30 day(s) Unknown Willis Sin Unknown Encounters Encounter Location Date Provider Diagnosis [facility] [address] [place] [id number] 01/18/2024 Devora Parekh PLAN OF TREATMENT No Information
--- OUTSIDE RECORDS SUMMARY | 2024-04-08 06:45 | XMS_ITS ---
Author Organization [facility] Address [address] [place] [phone] Care Team Providers Care Medical Malpractice Paralegal Name Role Phone Vignesh Trevino Primary Care Provider Devora Hall Unavailable [phone] ALLERGIES Allergen (clinical drug ingredient) Drug/Non Drug Allergy documented on EMR Reaction Allergy Type Onset Date Status Penicillin Unknown Drug Allergy Active REASON FOR VISIT Patient presents today for a screening colon MEDICATIONS Medication SIG (Take, Route, Frequency, Duration) Notes Start Date End Date Status buPROPion HCl ER (SR) 200 MG Oral for 90 Active Simvastatin 10 MG TAKE 1 TABLET (10 MG ) ORALLY DAILY FOR 30 DAYS Oral for 90 Active Lisinopril 10 MG TAKE 1 TABLET BY ALONDRA TH EVERY DAY Oral for 90 Active Propranolol HCl 10 MG TAKE 1 TABLET BY M OUTH TWICE A DAY FOR 7 DAYS Oral for 7 Active Solifenacin Succinate 5 MG Oral for 90 Active Multivitamin Adult - 1 tablet Orally Onc e a day for 30 day(s) Active Willis Sin Active SOCIAL HISTORY Tobacco Use: Social History Observation Description Date Details (start date - stop date) Never Smoker NA - NA Sex Assigned At : Social History Observation Description Sex Assigned At Unknown Tobacco Use/Smoking Question Answer Notes Patient is a nonsmoker Alcohol Screen Question Answer Notes Did you have a drink contain ing alcohol in the past year? Yes How often did you have a dri nk containing alcohol in the past year? 2 to 4 times a month (2 points) How many drinks did you have on a typical day when you were drinking in the past year? 3 or 4 drinks (1 point) How often did you have 6 or more drinks on one occasion in the past year? Never (0 point) Points 3 Interpretation Negative PROBLEMS Problem Type ICD Code Onset Dates Problem Status W/U Status Risk SNOMED Code Notes Problem History of adenomatous polyp of colon (Z86.010) Active confirmed History of adenomatous polyp of colon (477635729) VITAL SIGNS Blood pressure systolic 00 mm Hg 05/26/19 24 Blood pressure diastolic 00 mm Hg 024 Height 70 in 05/26/2023 Weight 207 lbs 05/26/2023 BMI 29.70 kg/m2 05/26/2023 Encounters Encounter Location Date Provider Diagnosis [facility] [address] [place] [address] 05/26/2023 Devora Parekh History of adenomato us polyp of colon Z86.010 ; Pre-procedural examination Z01.818 and Encounter for screening for malignant neoplasm of colon Z12.11 ASSESSMENTS Encounter Date Diagnosis Assessment Notes Treatment Notes Treatment Clinical Notes 05/26/2023 History of adenomatous polyp of colon (ICD-10 - Z86.010) 05/26/2023 Pre-procedural examination (ICD-10 - Z01.818) 05/26/2023 Encounter for screening for malignant neoplasm of colon (ICD-10 - Z12.11) Stop the [place] for 1 week before the colonoscopy PLAN OF TREATMENT Treatment Notes Assessment Notes Encounter for screening for malignant neoplasm of colon Stop the [place] for 1 week before the colonoscopy Future Test Test Name Order Date COLONOSCOPY 05/26/2023 Next Appt Details Follow Up: prn, Reason: Progress Notes * Examination Category Sub-Category Detail Notes General Examination GENERAL APPEARANCE: pleasant , well nourished, well developed, in no acute distress HEAD: EYES: sclera non-icteric EARS: NOSE: THROAT: NECK/THYROID: no cervical lymphade nopathy, neck supple HEART: S1, S2 normal CHEST: LUNGS: clear to auscultatio n bilaterally ABDOMEN: normal bowel sounds, no guarding or rigidity, no guarding or rigidity, no masses palpable, soft, nontender, nondistended NEUROLOGIC: alert and oriented SKIN: nonjaundiced, no spi eliza angiomata EXTREMITIES: no edema PERIPHERAL PULSES: BACK: BREASTS: MUSCULOSKELETAL: MALE GENITOURINARY: LYMPH NODES: RECTAL EXAM: FEMALE GENITOURINARY: ORAL CAVITY: mucosa moist
--- OUTSIDE RECORDS SUMMARY | 2024-04-08 06:45 | XMS_ITS ---
Author Organization [facility] Address [address] [place] [phone] Care Team Providers Care Tax Manager Public Name Role Phone Vignesh Trevino Primary Care Provider Unavailab Devora Chahal Unavailable [phone] REASON FOR VISIT screening, hx polyps PROBLEMS Problem Type ICD Code Onset Dates Problem Status W/U Status Risk SNOMED Code Notes Problem Personal history of colonic polyps (Z86.010) Active confirmed History of polyp of colon (situation) (020751822) Problem Diverticulosis of large intestine without perforation or abscess without bleeding (K57.30) Active confirmed Diverticul ar disease of colon (583538830) Encounters Encounter Location Date Provider Diagnosis [facility] Outpatient [address] [place] [phone] 08/19/2023 Devora Parekh Encounter for scre ening colonoscopy Z12.11 ; Personal history of colonic polyps Z86.010 ; Diverticulosis of large intestine without perforation or abscess without bleeding K57.30 and Other hemorrhoids K64.8 ASSESSMENTS Encounter Date Diagnosis Assessment Notes Treatment Notes Treatment Clinical Notes 08/19/2023 Encounter for screening colonoscopy (ICD-10 - Z12.11) 08/19/2023 Personal history of colonic polyps (ICD-10 - Z86.010) 08/19/2023 Diverticulosis of large intestine without perforation or abscess without bleeding (ICD-10 - K57.30) 08/19/2023 Other hemorrhoids (ICD-10 - K64.8) PLAN OF TREATMENT No Information
[2024-04-08 10:29] LABS: Hematocrit 39.8 % (42.0-52.0); Hemoglobin 13.5 g/dl (14.0-18.0); Mean Corpuscular HGB Conc 33.9 g/dl (31.0-36.0); Mean Corpuscular Volume 94.3 fL (80.0-98.0); Mean Platelet Volume 10.7 fL (9.4-12.4); Platelet Count 257 X10*3/uL (160-400); Red Blood Count 4.22 X10*6/uL (4.60-5.80); Red Cell Distribution Width 13.1 % (11.0-16.0); White Blood Count 5.1 X10*3/uL (4.8-10.8)
[2024-04-08 10:39] LABS: Alanine Aminotransferase 17 U/L (0-40); Albumin Level 3.9 g/dL (3.5-5.0); Alkaline Phosphatase 61 U/L (39-117); Anion Gap 11 (12-20); Aspartate Amino Transferase 23 U/L (5-37); Bilirubin Total 0.6 mg/dL (0.0-1.0); Blood Urea Nitrogen 21 mg/dL (9-16); Calcium 9.3 mg/dL (8.4-10.2); Carbon Dioxide 28 mmol/L (22-29); Chloride 104 mmol/L (96-108); Cholesterol 186 mg/dL (<200); Estimated Glomerular Filt Rate > 60; Glucose Fasting 93 mg/dL (60-99); HDL Cholesterol 70 mg/dL (>40); LDL Cholesterol Calculated 104 mg/dL (<100); Potassium 4.2 mmol/L (3.3-5.1); Sodium 139 mmol/L (135-145); Total Protein 6.5 g/dL (6.5-8.0); Triglycerides 60 mg/dL (<150)
[2024-04-08 11:03] LABS: Creatinine Urine 136.98 mg/dL; Microalbumin Urine < 5.0 mg/L
[2024-04-08 11:25] LABS: Prostate Specific Antigen Scr 3.03 ng/mL (<0.05-4.0)
== END 2024-04-08 06:43 | disposition home or self-care (01) ==
LOC: HO.HMGCLDS 06:42
PROVIDERS: PCP Physician Assistant; Visit Provider Physician Assistant
DX: I10 Essential (primary) hypertension (principal); E78.2 Mixed hyperlipidemia; Z12.5 Encounter for screening for malignant neoplasm of prostate
CPT/HCPCS: 36415; 80053; 80061; 82043; 82570; 84153; 85027

== ENCOUNTER 2024-04-12 08:31 | Outpatient (AMB) | payer BC, SELFPAY ==
[2024-04-12 08:51] VITALS: BP 118/70; PULSE 60; O2SAT 97; BMI 24.5
--- NOTE | 2024-04-12 08:51 | A.OFFPC_ITS ---
Vital Signs 04/12/24 08:51 Height 5 ft 10 in Weight 171 lb BMI 24.5 BP 118/70 Blood Pressure Location Lt brachial Position Sitting Pulse 60 Pulse Source Pulse Oximeter Pulse Oximetry (%) 97 Oxygen Delivery Method Room Air Intake Visit Reasons: 6mth f/u Intake Note: Patient here for a 6 month follow up Bit Tripoler Required: No Accompanied by: Self / Same As Patient Allergies penicillin V Allergy (Intermediate, Verified 04/12/24 08:57) hives Medication List - Last Reconciled 04/12/24 by Vignesh Trevino PA-C blood pressure monitor As directed bupropion HCl SR (Wellbutrin SR) 200 mg PO DAILY 90 days lisinopril 10 mg PO DAILY lorazepam 0.5 mg PO DAILY 10 days propranolol 10 mg PO BID PRN sildenafil 100 mg PO DAILY PRN 7 days silver nitrate 10% 1 appl topical 2XW 3 weeks silver sulfadiazine 1% (Silvadene) 1 appl topical BID PRN simvastatin 10 mg PO DAILY 30 days solifenacin 5 mg PO DAILY Tobacco use date assessed: 04/12/24 Dental Screening Dental Screen Date: 04/12/24 Did you have a dental visit in the last 12 months?: Yes Did you have a dental problem in the last 6 months where you did not have access to dental care?: No Was dental information given to patient?: Patient has dentist HPI 6mth f/u HPI Details Patient is a 58 year male here today a six-month follow-up visit.? Patient has a past history significant for hypertension , spastic bladder, generalized anxiety disorder. .. Hypertension:? Blood pressure today in office acceptable.? Continues on lisinopril 10 mg with good effect. .. Hyperlipidemia :? Has been taken off of statin due to an Achilles rupture thought to be secondary to statin. He continues with dietary and lifestyle modifications and has lost 10 lb over the last 6 months. Most recent lipid panel showing good control his total cholesterol and LDL. PLAN: Continue to manage his cholesterol with dietary modifications. Goal LDL is to be below 130 .. Anxiety/ adhd:? ADHD has been fairly well controlled. Now is retired and feels that he does not need any stimulant medication to keep him focused. Still does have anxiety specially when he drives. .. Spastic bladder:? Continues to follow urology in [place]. He does understand soda, alcohol intake bothers his bladder and trying to make some adjustments in his diet. Has been stable with the use of solifenacin daily. Bladder spasms worsen with certain beverages. Laboratory Tests 08/26/22 12/29/22 06/30/23 07:44 06:56 07:53 RBC 4.66 Hgb Creatinine Fasting Glucose Cholesterol 223 193 LDL Cholesterol, C alc 107 H PSA Screen Urine Microalbumin 06/30/23 06/30/23 10/09/23 07:55 07:57 06:39 RBC 4.58 L Hgb 14.1 Creatinine 1.09 1.31 Fasting Glucose 97 Cholesterol 180 214 H LDL Cholesterol, C alc 108 H 135 H PSA Screen Urine Microalbumin < 5.0 04/08/24 07:04 RBC 4.22 L Hgb 13.5 L Creatinine 1.05 Fasting Glucose Cholesterol 186 LDL Cholesterol, C alc 104 H PSA Screen 3.03 Urine Microalbumin < 5.0 [facility] Medical History Asthma Left groin pain AMEYA (generalized anxiety disorder) Borderline high cholesterol HTN (hypertension) Surgical History History of oral surgery History of hip surgery History of surgery on arm H/O hernia repair Family History Mother Lung cancer Social History Housing: House Alcohol intake: current Alcohol intake frequency: a few times a week Alcohol type: beer and wine Patient Tobacco Use Status: Never used Tobacco e-Cigarette/Vaping Use: Never Used Second Hand Smoke Exposure: No service: No Current occupational status: retired Cognitive needs: No Hearing needs: No Vision needs: No Questionnaire PHQ-9 Over the last 2 weeks, how often have you been bothered by any of the following problems? 1. Little interest or pleasure in doing things: not at all 2. Feeling down, depressed, or hopeless: not at all 3. Trouble falling or staying asleep, or sleeping too much: not at all 4. Feeling tired or having little energy: not at all 5. Poor appetite or overeating: not at all 6. Feeling bad about yourself - or that you are a failure or have let yourself or your family down: not at all 7. Trouble concentrating on things, such as reading the newspaper or watching television: not at all 8. Moving or speaking so slowly that other people could have noticed. Or the opposite - being so fidgety or restless that you have been moving around a lot more than usual: not at all 9. Thoughts that you would be better off or of hurting yourself in some way: not at all Total score: 0 Depression Screening Interpretation: Negative Depression Screening Done: Yes 61178 - PHQ-9 Billing: Yes Source: Developed by Drs. Wes Dumont, Ruby Negrete, Axel Watts and colleagues, with an educational fortino from [employer]. Thrive Questionnaire Date Thrive assessed: 04/12/24 I am a: Patient What is your living situation today?: I have a steady place to live Within the past 12 months, did the food you bought not last and you didn't have the money to get more?: Never true Within the past 12 months, did you worry whether your food would run out before you got money to buy more?: Never true Do you have trouble paying for medicines?: No Do you have trouble getting transportation to medical appointments?: No Do you have trouble paying your heating and electricity bill?: No Do you have trouble taking care of your child, family member or friend?: No Do you have trouble with day-to-day activities such as bathing, preparing meals, shopping, managing finances, etc.?: No Are you currently unemployed and looking for a job?: No Are you interested in more education?: No Please select the resources that you would like help with: None Currently or been in a relationship where the following occur: No concerns reported THRIVE Score: 0 AUDIT C Alcohol Use Questionnaire (AUDIT-C) 1. How often do you have a drink containing alcohol?: 2-3 times a week 2. How many drinks containing alcohol do you have on a typical day when you are drinking?: 3 or 4 3. How often do you have six or more drinks on one occasion?: Less than monthly Total Score: 5 AMEYA-7 AMB Questionnaire AMEYA-7 Date AMEYA - 7 assessed: 04/12/24 Feeling nervous, anxious, or on edge: 0 = Not at all Not being able to stop or control worryin = Not at all Worrying too much about different things: 0 = Not at all Trouble relaxin = Not at all Being so restless that it is hard to sit still: 0 = Not at all Becoming easily annoyed or irritable: 0 = Not at all Feeling afraid as if something awful might happen: 0 = Not at all Total AMEYA-7 score (0-4 normal; 5-9 mild; 10-14 moderate; 15-21 severe): 0 Source: Developed by Drs. Wes Dumont, Ruby Negrete, Axel Watts and colleagues, with an educational fortino from [employer]. AMEYA-7 Assessment Billing AMEYA-7 Assessment Tool: AMEYA-7 Assessment 92655 Review of Systems Const Denies headache(s) Eyes Denies loss of vision ENT Denies vertigo, Denies dizziness, Denies headache(s) and Denies sore throat Card Denies chest pain, Denies leg edema and Denies lightheadedness Resp Denies cough, Denies hemoptysis and Denies wheezing GI Denies abdominal pain, Denies melena, Denies constipation, Denies diarrhea and Denies vomiting Denies dysuria, Denies urinary frequency and Denies urinary urgency Musc Denies arthralgias, Denies joint swelling, Denies numbness and Denies tingling Neuro Denies Abnormal speech present, Denies behavioral changes, Denies vertigo, Denies dizziness, Denies headache(s), Denies loss of vision, Denies memory loss, Denies numbness and Denies tingling Psych Denies anxiety, Denies behavioral changes, Denies depression, Denies memory loss and Denies panic attacks Prieto/Lymph Denies easy bleeding and Denies easy bruising Aller/Immun Denies wheezing Physical exam (Primary Care) Vital Signs: Last Vital Signs Pulse 60 04/12/24 08:51 BP 118/70 04/12/24 08:51 Pulse Ox 97 04/12/24 08:51 Oxygen Delivery Method Room Air 04/12/24 08:51 BMI result Body Mass Index 24.5 Tobacco/Smoking Status: Tobacco use Status Tobacco use date assessed 07/01/23 10/13/23 07:57 Patient Tobacco Use Status Never used Tobacco 10/13/23 08:10 Tobacco use type Cigarette 10/13/23 08:10 e-Cigarette/Vaping Use Never Used 10/13/23 08:10 Depression Screening Interpretation: Negative Thrive Assessment: Date of Thrive Assessment Date Thrive assessed 04/12/24 04/12/24 08:32 Currently or been in a relationship where the following occur: No concerns reported Const General: healthy appearing, no acute distress, alert and awake Nutritional Appearance: well nourished Orientation/consciousness: oriented to person, oriented to place and oriented to time HENMT Ears: TM's normal bilaterally General nose exam: Normal nasal mucous membranes and turbinates present Eyes Conjunctivae: conjunctivae normal Sclerae: sclerae normal Pupils: Equal, round and reactive pupils present Neck Neck: Yes no lymphadenopathy and Yes no JVD Thyroid: Thyroid normal Carotids: no bruits Resp Effort & Inspection: normal respiratory effort and not tachypneic Auscultation: no crackles, no rales, no rhonchi and no wheezes Cardio Rate: regular rate Rhythm: regular rhythm Heart sounds: no murmurs and normal S1 and S2 GI Palpation (GI): Soft to palpation, nontender, no hepatomegaly and no splenomegaly Auscultation: normal bowel sounds Skin General skin exam: no rashes or lesions noted and dry skin Neuro General: oriented to person, oriented to place and oriented to time Cranial nerves: Yes Equal, round and reactive pupils present Speech: No Abnormal speech present Gait exam (Neuro): Normal gait present Motor exam (neuro): no tremor noted Extrem Right upper extremity: full ROM Left upper extremity: full ROM Right lower extremity: full ROM; no edema Left lower extremity: full ROM; no edema Psych Mental Status: mental status grossly normal Speech and movement: Normal speech and movement present Affect: normal affect Attitude: cooperative Thought process: Normal thought process present Coding Level of Care Code Est Pt Level 4 (36088) Diagnoses Essential hypertension I10 Hypertension type: essential hypertension Attention deficit hyperactivity disorder (ADHD), predominantly inattentive type F90.0 Hyperactivity presence: present Attention deficit-hyperactivity disorder type: predominantly inattentive Borderline high cholesterol E78.9 Other male erectile dysfunction N52.8 Erectile dysfunction type: due to other cause AMEYA (generalized anxiety disorder) F41.1 Additional Codes PHQ-9 - 71259 - PHQ-9 Billing: Yes ([id number]) AMEYA-7 Assessment Billing - AMEYA-7 Assessment Tool: AMEYA-7 Assessment 36485 ([id number]) Assessment & Plan Assessment & Plan (1) HTN (hypertension): Code(s): I10 - Essential (primary) hypertension Category: Medical Qualifiers: Hypertension type: essential hypertension Qualified Code(s): I10 - Essential (primary) hypertension Plan: Patient's blood pressure acceptable today in office. Will continue lisinopril 10 mg with goal blood pressure to remain below 140/90 (2) ADD (attention deficit disorder): Code(s): F98.8 - Other specified behavioral and emotional disorders with onset usually occurring in childhood and adolescence Category: Medical Qualifiers: Hyperactivity presence: present Attention deficit-hyperactivity disorder type: predominantly inattentive Qualified Code(s): F90.0 - Attention- deficit hyperactivity disorder, predominantly inattentive type Plan: Patient continues on Wellbutrin with decent affect on his attention focus. Was previously on stimulant medications for ADHD though was concerns for his elevated blood pressure. Currently not working a full-time job anymore though does work part-time. (3) Borderline high cholesterol: Code(s): E78.9 - Disorder of lipoprotein metabolism, unspecified Category: Medical Plan: Patient has made lifestyle and dietary changes. His most recent lipid panel showing excellent control of his total cholesterol and LDL. Will continue to follow lipid panel with goal total cholesterol to remain below 200 and LDL to be below 130 (4) Erectile dysfunction: Code(s): N52.9 - Male erectile dysfunction, unspecified Category: Medical Qualifiers: Erectile dysfunction type: due to other cause Qualified Code(s): N52.8 - Other male erectile dysfunction Plan: Continues with the use of sildenafil 100 mg before sexual activity which he reports is only minimally effective. Has a new sexual partner. Will speak with his urologist about some alternative options. (5) AMEYA (generalized anxiety disorder): Code(s): F41.1 - Generalized anxiety disorder Category: Medical Plan: Patient's AMEYA-7 score 0, he feels his anxiety is well controlled with current dose of medication. Rarely has to use lorazepam at this time. Orders: Orders Lipid Panel Today E78.2 - Mixed hyperlipidemia Comprehensive [place]. Panel Fast Today I10 - Essential (primary) hypertension Complete Blood Count no Diff Today I10 - Essential (primary) hypertension Medications: Changed From sildenafil 100 mg PO DAILY 7 days PRN 7 tabs 0RF sexual activity N52.9 - Male erectile dysfunction, unspecified To sildenafil 100 mg PO DAILY 15 days 15 tabs 0RF sexual activity N52.9 - Male erectile dysfunction, unspecified Discontinued simvastatin Discontinued Reason: Doctor's Order 10 mg PO DAILY 30 days 30 tabs 1RF E78.2 - Mixed hyperlipidemia Patient Instructions: Goal: Blood pressure to be below 140/90 Barriers: Adherence to physical activity and healthy eating habits
--- OUTSIDE RECORDS SUMMARY | 2024-04-12 08:58 | XMS_ITS ---
Author Organization [facility] Address [address] [place] [address] Care Team Providers Care Enroller Name Role Phone Vignesh Trevino Primary Care Provider Unavailab Devora Chahal Unavailable [phone] REASON FOR VISIT screening, hx polyps PROBLEMS Problem Type ICD Code Onset Dates Problem Status W/U Status Risk SNOMED Code Notes Problem Personal history of colonic polyps (Z86.010) Active confirmed History of polyp of colon (situation) (988707781) Problem Diverticulosis of large intestine without perforation or abscess without bleeding (K57.30) Active confirmed Diverticul ar disease of colon (058058024) Encounters Encounter Location Date Provider Diagnosis [facility] [address] [place] [phone] 08/19/2023 Devora Parekh Encounter for scre ening [...]
--- OUTSIDE RECORDS SUMMARY | 2024-04-12 08:58 | XMS_ITS ---
Author Organization [facility] Address [address] [place] [phone] Care Team Providers Care Jai Alai Player Name Role Phone Vignesh Trevino Primary Care Provider Devora Hall Unavailable [phone] ALLERGIES Allergen (clinical drug ingredient) Drug/Non Drug [...] confirmed History of adenomatous polyp of colon (664734213) VITAL SIGNS Blood pressure systolic 00 mm Hg 05/26/19 24 Blood pressure diastolic 00 mm Hg 024 Height 70 in 05/26/2023 Weight 207 lbs 05/26/2023 BMI 29.70 kg/m2 05/26/2023 Encounters Encounter Location Date Provider Diagnosis [facility] [address] [place] [address] 05/26/2023 Devora Parekh History of adenomato us [...] colon (ICD-10 - Z12.11) Stop the Saw [place] for 1 week before the colonoscopy PLAN OF TREATMENT Treatment Notes Assessment Notes Encounter for screening for malignant neoplasm of colon Stop the Saw [place] for 1 week before the colonoscopy Future [...]
== END 2024-04-12 09:18 | disposition home or self-care (01) ==
PROVIDERS: PCP Physician Assistant; Visit Provider Physician Assistant
DX: I10 Essential (primary) hypertension (principal); F90.0 Attention-deficit hyperactivity disorder, predominantly inattentive type; E78.9 Disorder of lipoprotein metabolism, unspecified; N52.8 Other male erectile dysfunction; F41.1 Generalized anxiety disorder

== ENCOUNTER → 2024-04-12 08:31 | Outpatient (BNVA) | payer BC, SELFPAY | PROVIDERS: PCP Physician Assistant; Visit Provider Physician Assistant | DX: I10 Essential (primary) hypertension (principal); F90.0 Attention-deficit hyperactivity disorder, predominantly inattentive type; E78.9 Disorder of lipoprotein metabolism, unspecified; N52.8 Other male erectile dysfunction; F41.1 Generalized anxiety disorder; Z79.899 Other long term (current) drug therapy | CPT/HCPCS: 96127 ==

== ENCOUNTER 2024-06-01 08:09 | Outpatient (REF) | payer BC, SELFPAY ==
--- NOTE | ~2024-06-01 | XR_ITS ---
EXAMINATION: XR ANKLE, LEFT CLINICAL INFORMATION: M25.579 - Pain in unspecified ankle and joints of unspecified foot COMPARISON: None available. TECHNIQUE: AP, lateral, and mortise views of the left ankle. FINDINGS: There is normal alignment of the ankle mortise and subtalar joints. There is mild spurring along the dorsal clavicle bone at the talonavicular junction. No acute fracture, lytic osseous subluxation seen. The soft tissues are normal. XR/XR ankle LT min 3V IMPRESSION: Mild DJD talonavicular joint. No visible fracture or dislocation seen. Electronically signed by: Grant Florse MD 06/01/2024 02:23 PM EDT
--- OUTSIDE RECORDS SUMMARY | 2024-06-02 08:21 | XMS_ITS | Patient Health Record ---
Author Organization [facility] Address [address] [place] [address] Care Team Providers Care Rocket Engine Tester Name Role Phone Vignesh Trevino Primary Care Provider UnavailDevora Martin Unavailable [phone] Allergies Allergen (clinical drug ingredient) Drug/Non Drug Allergy documented on EMR Reaction Allergy Type Onset Date Status Penicillin Unknown Drug Allergy Active Reason For Referral No Information Medications Medication SIG (Take, Route, Frequency, Duration) Notes Start Date End Date Status buPROPion HCl ER (SR) 200 MG Oral for 90 Unknown Simvastatin 10 MG TAKE 1 TABLET (10 MG ) ORALLY DAILY FOR 30 DAYS Oral for 90 Unknown Propranolol HCl 10 MG TAKE 1 TABLET BY M OUTH TWICE A DAY FOR 7 DAYS Oral for 7 Unknown Multivitamin Adult - 1 tablet Orally Onc e a day for 30 day(s) Unknown Solifenacin Succinate 5 MG Oral for 90 Unknown Lisinopril 10 MG TAKE 1 TABLET BY ALONDRA TH EVERY DAY Oral for 90 Unknown Saw [place] Unknown Immunizations Vaccine Route Administration Date Status Comme nts Influenza Unknown 12/14/2017 Administered Social History Tobacco Use: Social History Observation Description Date Details (start date - stop date) Never Smoker NA - NA Tobacco Use/Smoking Question Answer Notes Patient is [...] Never (0 point) Points 3 Interpretation Negative Section Notes: Nonsmoker, occ. wine Nonsmoker, occ. wine/ beer Problems Problem Type SNOMED Code ICD Code Onset Dates Problem Status W/U Status Risk Notes Problem [id number] Encounter for screening for malignant neoplasm of colon (Z12.11) Active confirmed Problem History of adenomatous polyp of colon (120138270) History of adenomatous polyp of colon (Z86.010) Active confirmed Problem History of polyp of colon (situation) (660219357) Personal history of colonic polyps (Z86.010) Active confirmed Problem Diverticular disease of colon (811769879) Diverticulosis of large intestine without perforation or abscess without bleeding (K57.30) Active confirmed Problem [id number] Pre-procedural examination (Z01.818) Active confirmed Encounters Encounter Location Date Provider Diagnosis [facility] [place] [address] [place], [place] [phone] 08/19/2023 Devora Parekh Encounter for screen ing colonoscopy Z12.11 ; Personal history of colonic polyps Z86.010 ; Diverticulosis of large intestine without perforation or abscess without bleeding K57.30 and Other hemorrhoids K64.8 [facility] [address] [place] [address] 01/18/2024 Devora Parekh Assessments Encounter Date Diagnosis (ICD Code) Assessment Notes Treatment Notes Treatment Clinical Notes Section Notes 08/19/2023 Encounter for screening colonoscopy (ICD-10 - Z12.11) 08/19/2023 Personal history of colonic polyps (ICD-10 - Z86.010) 08/19/2023 Diverticulosis of large intestine without perforation or abscess without bleeding (ICD-10 - K57.30) 08/19/2023 Other hemorrhoids (ICD-10 - K64.8) Plan Of Treatment Future Test Test Name Order Date COLONOSCOPY 01/13/2018 COLONOSCOPY 05/26/2023 Insurance Providers Payer Name Payer Address Payer Phone Subscriber Number Group Number Insured Name Patient Relationship to Insured Coverage Start Date Coverage End Date [facility] [address] [place], [place] [id number] DEVORA CANALES Self - patient is the insured Medical (General) History Medical History History ICD Code Denies IN,DM,CVA,renal disease Sees a urologist for bladder issues Melanoma as below Hypertension Asthma-- exercised induced Screening colonoscopy in May 2018 with removal of a small tubular adenoma Surgical History Surgery Date(Month/Year) Oral surgery x2 Right finger surgery with bone graft fro m right hip Hernia repair--right inguinal Melanoma excision--2001--right upper arm , negative lymph node Left [place]'s tendon repair in 03/2021
--- OUTSIDE RECORDS SUMMARY | 2024-06-02 08:21 | XMS_ITS ---
Author Organization [facility] Address [address] [place] [address] Care Team Providers Care Cloth Desizing Range Operator Chief Name Role Phone Vignesh Trevino Primary Care Provider Devora Hall Unavailable [phone] Allergies Allergen (clinical drug ingredient) Drug/Non Drug Allergy documented on EMR Reaction Allergy Type Onset Date Status Penicillin Unknown Drug Allergy Active REASON FOR VISIT Patient presents today for a screening colon Medications Medication SIG (Take, Route, Frequency, Duration) [...] for 30 day(s) Active Willis Sin Active Social History Tobacco Use: Social History Observation [...] 3 Interpretation Negative Section Notes: Nonsmoker, occ. wine/ beer Problems Problem Type SNOMED Code ICD Code Onset Dates Problem Status W/U Status Risk Notes Problem History of adenomatous polyp of colon (326856699) History of adenomatous polyp of colon (Z86.010) Active confirmed Vital Signs Blood pressure systolic 00 mm Hg 05/26/19 24 Blood pressure diastolic 00 mm Hg 024 Height 70 in 05/26/2023 Weight 207 lbs 05/26/2023 BMI 29.70 kg/m2 05/26/2023 Encounters Encounter Location Date Provider Diagnosis [facility] [address] [place] [address] 05/26/2023 Devora Parekh History of adenomato us polyp of colon Z86.010 ; Pre-procedural examination Z01.818 and Encounter for screening for malignant neoplasm of colon Z12.11 Assessments Encounter Date Diagnosis (ICD Code) Assessment Notes Treatment Notes Treatment Clinical Notes Section Notes 05/26/2023 History of adenomatous polyp of colon (ICD-10 - Z86.010) Overall, Devora appears well. I did recommend a followup colonoscopy for further screening given his history of a tubular adenoma removed 5 years ago. He did review the rationale for this regard to colon cancer prevention. Full consent is obtained for this, including risks of bleeding and perforation. The procedure will be done monitored anesthesia care. Devora and his were comfortable with this plan. Thank you again for allowing me to participate in Devora's care. I shall continue to keep you advised of his progress. 05/26/2023 Pre-procedural examination (ICD-10 - Z01.818) Overall, Devora appears well. I did recommend a followup colonoscopy for further screening given his history of a tubular adenoma removed 5 years ago. He did review the rationale for this regard to colon cancer prevention. Full consent is obtained for this, including risks of bleeding and perforation. The procedure will be done monitored anesthesia care. Devora and his were comfortable with this plan. Thank you again for allowing me to participate in Devora's care. I shall continue to keep you advised of his progress. 05/26/2023 Encounter for screening for malignant neoplasm of colon (ICD-10 - Z12.11) Stop the Saw [place] for 1 week before the colonoscopy Overall, Devora appears well. I did recommend a followup colonoscopy for further screening given his history of a tubular adenoma removed 5 years ago. He did review the rationale for this regard to colon cancer prevention. Full consent is obtained for this, including risks of bleeding and perforation. The procedure will be done monitored anesthesia care. Devora and his were comfortable with this plan. Thank you again for allowing me to participate in Devora's care. I shall continue to keep you advised of his progress. Plan Of Treatment Treatment Notes Assessment Notes Encounter for screening for malignant neoplasm of colon Stop the Saw [place] for 1 week before the colonoscopy Future Test Test Name Order Date COLONOSCOPY 05/26/2023 Next Appt Details Follow Up: prn, Reason: Progress Notes * DEVORA CANALES RDOB: [birth year] (57 yo M)Acc No.[id number]:05/26/2023 Progress Notes Patient:?DEVORA CANALES Provider:?Devora Parekh MD :1965???Age:57 Y???Sex:Male Tera e:05/26/2023 Address:[address] [place], [place] [id number] Pcp:Vignesh Trevino Subjective: * Chief Complaints: * ???Patient presents today fo r a screening colon * HPI: ???incontinence:? I saw Devora in the office today for evaluation of his personal history of a tubular adenoma of the colon and need for colorectal cancer screening. He was accompanied by his . ?I last saw Devora in May of 2018, at which time he underwent a screening colonoscopy with removal of a small tubular adenoma. He presently feels well. He enjoys a good appetite, without any significant heartburn or dysphagia. His bowel movements have been regular and without any signs of bleeding. He denies abdominal pain, jaundice, nor weight loss. He has a family history of a grandfather having had colon cancer and his father having had colon polyps. * ROS:?General/Constitutional:?Change in appetite?denies.?Chills?denies.?Fatigue?denies.?Ophthalmologic:?Comments?all negative.?ENT:?Comments?all negative.?Respiratory:?hemoptysis?denies.?Cough?denies.?Cardiovascular:?Chest pain?denies.?Orthopnea?denies.?Gastrointestinal:?Comments?See HPI for details.?Genitourinary:?Hematuria?denies.?Dysuria?denies.?Musculoskeletal:?Painful joints?denies.?Weakness?denies.?Skin:?Itching?denies.?Rash?denies.?Neurologic:?Headache?denies.?Seizures?denies.?Psychiatric:?Comments?all negative.? * Medical History:? * Surgical History:?Oral surge ry x2 Right finger surgery with bone graft from right hip Hernia repair--right inguinal Melanoma excision--2001--right upper arm, negative lymph node Left [place]'s tendon repair in 03/2021 * Hospitalization/Major Diagno stic Procedure:?No Hospitalization History. * Family History:?Father: john paul posada, ? colon polyps, diagnosed with Colon polyps.?Mother: .? Grandfather paternal colon cancer. * Social History:?Tobacco Use:?Tobacco Use/Smoking?Patient is a?nonsmoker.?Drugs/Alcohol:?Alcohol Screen?Did you have a drink containing alcohol in the past year??Yes,?How often did you have a drink containing alcohol in the past year??2 to 4 times a month (2 points),?How many drinks did you have on a typical day when you were drinking in the past year??3 or 4 drinks (1 point),?How often did you have 6 or more drinks on one occasion in the past year??Never (0 point),?Points?3,?Interpretation?Negative.?Miscellaneous:?Marital status: . 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 ???Nonsmoker, occ. wine/ beer. * Medications:?TakingSaw [place] tto Multivitamin Adult - Tablet 1 tablet Orally Once a daySolifenacin Succinate 5 MG Tablet Oral Lisinopril 10 MG Tablet TAKE 1 TABLET BY MOUTH EVERY DAY Oral buPROPion HCl ER (SR) 200 MG Tablet Extended Release 12 Hour Oral Simvastatin 10 MG Tablet TAKE 1 TABLET (10 MG) ORALLY DAILY FOR 30 DAYS Oral Propranolol HCl 10 MG Tablet TAKE 1 TABLET BY MOUTH TWICE A DAY FOR 7 DAYS Oral Taking [place] Taking Multivitamin Adult - Tablet 1 tablet Orally Once a dayTaking Solifenacin Succinate 5 MG Tablet Oral Taking Lisinopril 10 MG Tablet TAKE 1 TABLET BY MOUTH EVERY DAY Oral Taking buPROPion HCl ER (SR) 200 MG Tablet Extended Release 12 Hour Oral Taking Simvastatin 10 MG Tablet TAKE 1 TABLET (10 MG) ORALLY DAILY FOR 30 DAYS Oral Taking Propranolol HCl 10 MG Tablet TAKE 1 TABLET BY MOUTH TWICE A DAY FOR 7 DAYS Oral DiscontinuedVESIcare 5 MG Tablet TAKE 1 TABLET BY MOUTH EVERY DAY Oral Once a dayAmphetamine-Dextroamphet ER 20 MG Capsule Extended Release 24 Hour 1 capsule in the morning Orally Once a dayDiscontinued VESIcare 5 MG Tablet TAKE 1 TABLET BY MOUTH EVERY DAY Oral Once a dayDiscontinued Amphetamine- Dextroamphet ER 20 MG Capsule Extended Release 24 Hour 1 capsule in the morning Orally Once a day * Allergies:?Penicillinyes[All ergies Verified] Objective: * Vitals:?Wt: 207 lbs, Ht: 70 in, BMI:29.70 Index, BP: 00/00 mm Hg. * Examination: ???General Examination: ?GENERAL APPEARANCE:?pleasant, well nourished, well developed, in no acute distress.?EYES:?sclera non-icteric.?ORAL CAVITY:?mucosa moist.?NECK/THYROID:?no cervical lymphadenopathy, neck supple.?SKIN:?nonjaundiced, no spider angiomata.?HEART:?S1, S2 normal.?LUNGS:?clear to auscultation bilaterally.?ABDOMEN:?normal bowel sounds, no guarding or rigidity, no guarding or rigidity, no masses palpable, soft, nontender, nondistended.?EXTREMITIES:?no edema.?NEUROLOGIC:?alert and oriented.? Assessment: * Assessment: 1.?Pre-procedural examinatio n - Z01.818 (Primary)?2.?History of adenomatous polyp of colon - Z86.010?3.?Encounter for screening for malignant neoplasm of colon - Z12.11? Overall, Devora appears well . I did recommend a followup colonoscopy for further screening given his history of a tubular adenoma removed 5 years ago. He did review the rationale for this regard to colon cancer prevention. Full consent is obtained for this, including risks of bleeding and perforation. The procedure will be done monitored anesthesia care. Devora and his were comfortable with this plan. Thank you again for allowing me to participate in Devora's care. I shall continue to keep you advised of his progress. Plan: * Treatment: 2.?Encounter for screening for malignant neoplasm of colon?Procedure: COLONOSCOPY (Ordered for 05/26/2023)* with MACsched for 08/19/23 at 11:50 ammiralax Notes: Stop the Willis Sin for 1 week before the colonoscopy?? * Procedure Codes:?3017F COLOR ECTAL CA SCREEN DOC [id number] TOBACCO NON-[id number] BP SCR NOT PRFRM REC REASON NOS * Follow Up:?prn * * Sign off status: Completed true * Provider:?Devora Parekh MD Date:? 024 Generated for Paddy desai/Skylar/eTransmitting on:?06/02/2024 08:21 AM EDT History and Physical Notes * HPI (History of Present Illness) Category Sub-Category Detail Notes Category Not es incontinence I saw Devora in the office today for evaluation of his personal history of a tubular adenoma of the colon and need for colorectal cancer screening. He was accompanied by his . I last saw Devora in May of 2018, at which time he underwent a screening colonoscopy with removal of a small tubular adenoma. He presently feels well. He enjoys a good appetite, without any significant heartburn or dysphagia. His bowel movements have been regular and without any signs of bleeding. He denies abdominal pain, jaundice, nor weight loss. He has a family history of a grandfather having had colon cancer and his father having had colon polyps. Examination Category Sub-Category Detail Notes Category Not es General Examination GENERAL APPEARANCE: pleasant , well [...]
--- OUTSIDE RECORDS SUMMARY | 2024-06-02 08:21 | XMS_ITS ---
Author Organization [facility] Address [address] [place] [address] Care Team Providers Care Boat Engine Mechanic Name Role Phone Uriel Vignesh Primary Care Provider UnavailDevora Martin Unavailable [phone] Allergies Allergen (clinical drug ingredient) Drug/Non Drug Allergy documented on EMR Reaction Allergy Type Onset Date Status Penicillin Unknown Drug Allergy Active Medications Medication SIG (Take, Route, Frequency, Duration) [...] Unknown Encounters Encounter Location Date Provider Diagnosis [facility] [address] [place] [phone] 01/18/2024 Devora Parekh Plan Of Treatment No Information Progress Notes * DEVORA CANALES RDOB: [birth year] (58 yo M)Acc No.[id number]:01/18/2024 Patient:?DEVORA CANALES :1965???Age:58 Y???Sex:Male Address:[address] [place], [address] Subjective: * Chief Complaints: * ??? * Medical History:? * Surgical History:? * Hospitalization/Major Diagno stic Procedure:? * Medications:?UnknownSaw [place] etto Multivitamin Adult - Tablet 1 tablet Orally [...] TWICE A DAY FOR 7 DAYS Oral Medication List reviewed and reconciled with the patientUnknowjuan manuel Sin Unknown Multivitamin Adult - Tablet 1 tablet Orally Once a dayUnknown Solifenacin Succinate 5 MG Tablet Oral Unknown Lisinopril 10 MG Tablet TAKE 1 TABLET BY MOUTH EVERY DAY Oral Unknown buPROPion HCl ER (SR) 200 MG Tablet Extended Release 12 Hour Oral Unknown Simvastatin 10 MG Tablet TAKE 1 TABLET (10 MG) ORALLY DAILY FOR 30 DAYS Oral Unknown Propranolol HCl 10 MG Tablet TAKE 1 TABLET BY MOUTH TWICE A DAY FOR 7 DAYS Oral Medication List reviewed and reconciled with the patient * Allergies:?Penicillin Objective: Assessment: Plan: * Treatment: * Procedure Codes:? * true * Date:? Generated for Paddy desai/Skylar/lEeni on:?06/02/2024 08:21 AM EDT
--- OUTSIDE RECORDS SUMMARY | 2024-06-02 08:21 | XMS_ITS ---
Author Organization [facility] Address [address] [place] [address] Care Team Providers Care Taxi Dancer Name Role Phone Vignesh Trevino Primary Care Provider Unavailab Devora Chahal Unavailable [phone] REASON FOR VISIT screening, hx polyps Problems Problem Type SNOMED Code ICD Code Onset Dates Problem Status W/U Status Risk Notes Problem History of polyp of colon (situation) (570549058) Personal history of colonic polyps (Z86.010) Active confirmed Problem Diverticular disease of colon (124114814) Diverticulosis of large intestine without perforation or abscess without bleeding (K57.30) Active confirmed Encounters Encounter Location Date Provider Diagnosis [facility] Outpatient [address] [place] [phone] 08/19/2023 Devora Parekh Encounter for scre ening [...] DEVORA CANALES RDOB: [birth year] (58 yo M)Acc No.[id number]:08/19/2023 COLON WITH MAC Patient:?DEVORA CANALES Provider:?Devora Parekh MD :1965???Age:58 Y???Sex:Male Tera e:08/19/2023 Address:[address] [place], [place] [phone] Pcp:Vignesh Trevino Subjective: * Chief Complaints: * ???1. Screening, hx polyps. * Medical History:? Objective: * Vitals:? Assessment: * Assessment: 1.?Encounter for screening c olonoscopy - Z12.11 (Primary)???2.?Personal history of colonic polyps - Z86.010???3.?Diverticulosis of large intestine without perforation or abscess without bleeding - K57.30???4.?Other hemorrhoids - K64.8??? Plan: * Treatment: * Procedure Codes:?02170 DIAGN OSTIC COLONOSCOPY, Modifiers: 33 * Preventive Medicine:? ??NEELIMA Screening:?Colonoscopy?Was interval between colonoscopies three years or more??Yes,?Was last colonoscopy performed three or more years ago??Yes.? * * The named appointment provid er may or may not be the originator of this progress note, and it is not deemed complete until electronically signed by the appointment provider. Sign off status: Pending * Provider:?Devora Parekh MD Date:? 024 Generated for Paddy desai/Skylar/eTbronwynsmitting on:?06/02/2024 08:21 AM EDT
== END 2024-06-01 08:10 | disposition home or self-care (01) ==
LOC: HO.HOSX 08:09
PROVIDERS: Visit Provider Physician Assistant
DX: Z47.89 Encounter for other orthopedic aftercare (principal); M25.572 Pain in left ankle and joints of left foot
CPT/HCPCS: 73610

== ENCOUNTER 2024-06-01 09:07 | Outpatient (AMB) | payer BC, SELFPAY ==
--- NOTE | 2024-06-01 09:18 | MHC.OFFVIS ---
Intake Visit Reasons: OV-Wound check s/p LT Achilles repair 04/01/23 NE Intake Note: Wes is a 58 year old male who presents today for a wound check status post left achilles repair on 04/01/[address] Aguayo. Patient reports he was seen at [facility] where they drained his wound and started him on antibiotics. Patient states he has been doing daily dressing changes and they informed me that he might have a stitch inside when he went to urgent care. Patient has imaging of the wound. Allergies penicillin V Allergy (Intermediate, Verified 04/12/24 08:57) hives HPI HPI OV-Wound check s/p LT Achilles repair 04/01/23 NE: Details: Mr. Berrios is a 58-year-old male who presents to the office today for a wound check status post left Achilles tendon repair on 04/01/[address] Aguayo. He reports that on 05/23/2024 he reported to the urgent care after he noticed a quarter-size area of irritation and possible purulence over the Achilles incision site. He reports that the urgent Care drained the area and placed him on doxycycline. He was instructed to follow up with our office shortly after. I did want to see the patient last week however the patient was unable to come in at that time therefore the patient presents to the office today for evaluation. [facility] Medical History Asthma Left groin pain AMEYA (generalized anxiety disorder) Borderline high cholesterol HTN (hypertension) Surgical History History of oral surgery History of hip surgery History of surgery on arm H/O hernia repair Family History Mother Lung cancer Social History Housing: House Alcohol intake: current Alcohol intake frequency: a few times a week Alcohol type: beer and wine Patient Tobacco Use Status: Never used Tobacco e-Cigarette/Vaping Use: Never Used Second Hand Smoke Exposure: No service: No Current occupational status: retired Cognitive needs: No Hearing needs: No Vision needs: No Review of Systems Const All systems reviewed & are unremarkable except as noted in HPI and below Physical Exam Const General: cooperative, healthy appearing and no acute distress Resp Effort & Inspection: normal respiratory effort and able to speak in complete sentences Cardio Rate: regular rate Peripheral pulses: Peripheral pulses 2+ throughout Skin Lesions: no lesions Rashes: no rashes Extrem Other: Left Achilles prior incision site has a roughly 1 cm in width and 1.5cm in length wound. There is a scant amount of serosanguineous fluid draining from the area. I do not see any area of purulence. The surrounding erythematous tissue. NVI. Assessment & Plan Assessment & Plan (1) S/P Achilles tendon repair: Onset Date: ~04/01/23 Comment: Left Achilles tendon repair NE Code(s): Z98.890 - Other specified postprocedural states Category: Medical (2) Wound check, abscess: Code(s): Z51.89 - Encounter for other specified aftercare Category: Medical Plan Mr. Berrios is a 58-year-old male who presents to the office today for a wound check status post left Achilles tendon repair on 04/01/[address] Aguayo. He reports that on 05/23/2024 he reported to the urgent care after he noticed a quarter-size area of irritation and possible purulence over the Achilles incision site. He reports that the urgent Care drained the area and placed him on doxycycline. He was instructed to follow up with our office shortly after. I did want to see the patient last week however the patient was unable to come in at that time therefore the patient presents to the office today for evaluation. While in the office today, the wound was cleaned with ChloraPrep. I dressed the wound with a silver dressing gauze and an Carlyle wrap. I provided the patient with once daily dressing changes until his re-evaluation appointment on Thursday06/06/2024. In the meantime, he will continue taking oral doxycycline as prescribed by the urgent care. X-rays of the left ankle which were obtained while in the office today and were reviewed by me, Maryann Howell PA-C, revealed no acute abnormalities. Soft tissue swelling over the Achilles tendon incision site where the wound is located. Orders: Orders XR ankle LT min 3V Today M25.579 - Pain in unspecified ankle and joints of unspecified foot Coding Level of Care Code Est Pt Level 3 (64813) Diagnoses S/P Achilles tendon repair Z98.890 Wound check, abscess Z51.89
== END 2024-06-01 09:43 | disposition home or self-care (01) ==
LOC: HO.HOS 09:08
PROVIDERS: PCP Physician Assistant; Visit Provider Physician Assistant
DX: Z51.89 Encounter for other specified aftercare (principal); S86.012D Strain of left Achilles tendon, subsequent encounter
CPT/HCPCS: 99213

== ENCOUNTER → 2024-06-01 09:11 | Outpatient (BNV) | payer BC, SELFPAY | PROVIDERS: Visit Provider Radiology Diagnostic Radiology | DX: M25.572 Pain in left ankle and joints of left foot (principal); M19.072 Primary osteoarthritis, left ankle and foot | CPT/HCPCS: 73610 ==

== ENCOUNTER 2024-06-13 13:52 | Outpatient (AMB) | payer BC, SELFPAY ==
--- NOTE | 2024-06-13 13:55 | A.OFFVIS_ITS ---
Vital Signs 06/13/24 13:56 Height 5 ft 10 in Weight 171 lb BMI 24.5 Intake Visit Reasons: OV-Wound check s/p LT Achilles repair 04/01/23 NE Intake Note: Wes is a 58 year old male who presents today for a wound check about 3 months status post left Achilles repair on 04/01/[address] Aguayo. At his last visit patient was instructed to continue daily dressing changes & continue taking abx. Patient reports that he has been performing daily dressing changes. Allergies penicillin V Allergy (Intermediate, Verified 04/12/24 08:57) hives HPI HPI OV-Wound check s/p LT Achilles repair 04/01/23 NE: Details: 58-year-old gentleman comes in today now 15 months status post left Achilles tendon repair. He has been doing well with a bulge over his Achilles for some time now but a few weeks ago it developed scab and a there was drainage and he was placed on antibiotics. He looks good now but cultures were never taken. He has no pain. [facility] Medical History Asthma Left groin pain AMEYA (generalized anxiety disorder) Borderline high cholesterol HTN (hypertension) Surgical History History of oral surgery History of hip surgery History of surgery on arm H/O hernia repair Family History Mother Lung cancer Social History Housing: House Alcohol intake: current Alcohol intake frequency: a few times a week Alcohol type: beer and wine Patient Tobacco Use Status: Never used Tobacco e-Cigarette/Vaping Use: Never Used Second Hand Smoke Exposure: No service: No Current occupational status: retired Cognitive needs: No Hearing needs: No Vision needs: No Physical Exam Vital Signs: BMI result Body Mass Index 24.5 Extrem Other: Good plantar flexion strength with no palpable defect. There is a bulbous area over the distal tendon with a small eschar. There is no drainage or erythema. Assessment & Plan Assessment & Plan (1) S/P Achilles tendon repair: Onset Date: ~04/01/23 Comment: Left Achilles tendon repair NE Code(s): Z98.890 - Other specified postprocedural states Category: Surgical Plan: Possible prior infection versus granuloma with no drainage or erythema. Was on antibiotics recently. I would see me back in 6 weeks unless there is a change prior to this. We discussed options. He is in agreement. Coding Level of Care Code Est Pt Level 3 (34903) Diagnoses S/P Achilles tendon repair Z98.890
[2024-06-13 13:56] VITALS: BMI 24.5
--- OUTSIDE RECORDS SUMMARY | 2024-06-13 15:25 | XMS_ITS ---
Author Organization [facility] Address [address] [place] [address] Care Team Providers Care Appliance Worker Name Role Phone Uriel Vignesh Primary Care Provider UnavailDevora Martin Unavailable [phone] Allergies Allergen (clinical drug ingredient) Drug/Non Drug [...] Unknown Encounters Encounter Location Date Provider Diagnosis [facility] [address] [place] [phone] 01/18/2024 Devora Parekh Plan Of Treatment No Information Progress Notes * DEVORA CANALES RDOB: [birth year] (58 yo M)Acc No.[id number]:01/18/2024 Patient:?DEVORA CANALES :1965???Age:58 Y???Sex:Male Address:[address] [place], [address] Subjective: * Chief Complaints: * ??? * [...] * true * Date:? Generated for Paddy desai/Skylar/Eleni on:?06/13/2024 03:25 PM EDT
--- OUTSIDE RECORDS SUMMARY | 2024-06-13 15:25 | XMS_ITS ---
Author Organization [facility] Address [address] [place] [address] Care Team Providers Care Assistant Farm Operations Manager Name Role Phone Vignesh Trevino Primary Care Provider Devora Hall Unavailable [phone] Allergies Allergen (clinical drug ingredient) Drug/Non Drug [...] Problem History of adenomatous polyp of colon (744504550) History of adenomatous polyp of colon (Z86.010) Active confirmed Vital Signs Blood pressure systolic 00 mm Hg 05/26/19 24 Blood pressure diastolic 00 mm Hg 024 Height 70 in 05/26/2023 Weight 207 lbs 05/26/2023 BMI 29.70 kg/m2 05/26/2023 Encounters Encounter Location Date Provider Diagnosis [facility] [address] [place] [address] 05/26/2023 Devora Parekh History of adenomato us [...] colon (ICD-10 - Z12.11) Stop the Saw [place] for 1 week before the colonoscopy Overall, [...] DEVORA CANALES RDOB: [birth year] (57 yo M)Acc No.[id number]:05/26/2023 Progress Notes Patient:?DEVORA CANALES Provider:?Devora Parekh MD :1965???Age:57 Y???Sex:Male Tera e:05/26/2023 Address:[address] [place], [place] [phone] Pcp:Vignesh Trevino Subjective: * Chief Complaints: * [...] past year??Never (0 point),?Points?3,?Interpretation?Negative.?Miscellaneous:?Marital status: . 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 ???Nonsmoker, occ. wine/ beer. * [...] DAY FOR 7 DAYS Oral Taking Saw [place] Taking Multivitamin Adult - Tablet 1 tablet [...] Procedure Codes:?3017F COLOR ECTAL CA SCREEN DOC [id number] TOBACCO [id number]-[id number] BP SCR NOT PRFRM REC REASON NOS * Follow Up:?prn * * Sign off status: Completed true * Provider:?Devora Parekh MD Date:? 024 Generated for Paddy desai/Skylar/eTransmitting on:?06/13/2024 03:25 PM EDT History and Physical Notes * HPI [...]
--- OUTSIDE RECORDS SUMMARY | 2024-06-13 15:25 | XMS_ITS ---
Author Organization [facility] Address [address] [place] [address] Care Team Providers Care Clinical Therapist Name Role Phone Vignesh Trevino Primary Care Provider Unavailab Devora Chahal Unavailable [phone] REASON FOR VISIT screening, hx polyps Problems Problem Type SNOMED Code ICD Code Onset Dates Problem Status W/U Status Risk Notes Problem History of polyp of colon (situation) (749595186) Personal history of colonic polyps (Z86.010) Active confirmed Problem Diverticular disease of colon (076401748) Diverticulosis of large intestine without perforation or abscess without bleeding (K57.30) Active confirmed Encounters Encounter Location Date Provider Diagnosis [facility] [place] [address] [place] [phone] 08/19/2023 Devora Parekh Encounter for scre ening [...] DEVORA CANALES RDOB: [birth year] (58 yo M)Acc No.[id number]:08/19/2023 COLON WITH MAC Patient:?DEVORA CANALES Provider:?Devora Parekh MD :1965???Age:58 Y???Sex:Male Tera e:08/19/2023 Address:[address] [place], [place] [phone] Pcp:Vignesh Trevino Subjective: * Chief Complaints: * ???1. Screening, hx polyps. * Medical History:? Objective: * Vitals:? Assessment: * Assessment: 1.?Encounter for screening c olonoscopy - Z12.11 (Primary)???2.?Personal history of colonic polyps - Z86.010???3.?Diverticulosis of large intestine without perforation or abscess without bleeding - K57.30???4.?Other hemorrhoids - K64.8??? Plan: * Treatment: * Procedure Codes:?10362 DIAGN OSTIC COLONOSCOPY, Modifiers: 33 * Preventive [...] Parekh MD Date:? 024 Generated for Paddy desai/Skylar/Josephsmitting on:?06/13/2024 03:25 PM EDT
--- OUTSIDE RECORDS SUMMARY | 2024-06-13 15:25 | XMS_ITS | Patient Health Record ---
Author Organization [facility] Address [address] [place] [address] Care Team Providers Care Jet Dyeing Machine Operator Name Role Phone Vignesh Trevino Primary Care Provider UnavailDevora Martin Unavailable [phone] Allergies Allergen (clinical drug ingredient) Drug/Non Drug [...] EVERY DAY Oral for 90 Unknown Saw [place] Unknown Immunizations Vaccine Route Administration Date Status [...] Problem Status W/U Status Risk Notes Problem 488368114 Encounter for screening for malignant neoplasm of colon (Z12.11) Active confirmed Problem History of adenomatous polyp of colon (180602291) History of adenomatous polyp of colon (Z86.010) Active confirmed Problem History of polyp of colon (situation) (321249572) Personal history of colonic polyps (Z86.010) Active confirmed Problem Diverticular disease of colon (474761750) Diverticulosis of large intestine without perforation or abscess without bleeding (K57.30) Active confirmed Problem 372537902582081 Pre-procedural examination (Z01.818) Active confirmed Encounters Encounter Location Date Provider Diagnosis [facility] [place] [address] [place], [place] [phone] 08/19/2023 Devora Parekh Encounter for screen ing colonoscopy Z12.11 ; Personal history of colonic polyps Z86.010 ; Diverticulosis of large intestine without perforation or abscess without bleeding K57.30 and Other hemorrhoids K64.8 [facility] [address] [place] [address] 01/18/2024 Devora Parekh Assessments Encounter Date Diagnosis [...] Insured Coverage Start Date Coverage End Date [facility] [address] [place], [place] [id number] DEVORA CANALES Self - patient is the insured Medical (General) History Medical History History ICD Code Denies AL,DM,CVA,renal disease Sees a urologist for bladder issues Melanoma as below Hypertension Asthma-- exercised induced Screening colonoscopy in May 2018 with removal of a small tubular adenoma Surgical History Surgery Date(Month/Year) Oral surgery x2 Right finger surgery with bone graft fro m right hip Hernia repair--right inguinal Melanoma excision--2001--right upper arm , negative lymph node Left [place]'s tendon repair in 03/2021
== END 2024-06-13 14:23 | disposition home or self-care (01) ==
LOC: HO.HOS 13:53
PROVIDERS: Visit Provider Orthopaedic Surgery
DX: Z47.89 Encounter for other orthopedic aftercare (principal); S86.012D Strain of left Achilles tendon, subsequent encounter
CPT/HCPCS: 99213

== ENCOUNTER 2024-07-07 13:18 | Outpatient (AMB) | payer BC, SELFPAY ==
--- OUTSIDE RECORDS SUMMARY | 2024-07-07 13:23 | XMS_ITS | Patient Health Record ---
Author Organization [facility] Address [address] [place] [address] Care Team Providers Care Pipe Stem Sawyer Name Role Phone Vignesh Trevino Primary Care Provider UnavailDevora Martin Unavailable [phone] Allergies Allergen (clinical drug ingredient) Drug/Non Drug [...] EVERY DAY Oral for 90 Unknown Saw [place] Unknown Immunizations Vaccine Route Administration Date Status [...] Problem Status W/U Status Risk Notes Problem 470135585 Encounter for screening for malignant neoplasm of colon (Z12.11) Active confirmed Problem History of adenomatous polyp of colon (843137970) History of adenomatous polyp of colon (Z86.010) Active confirmed Problem History of polyp of colon (situation) (813741681) Personal history of colonic polyps (Z86.010) Active confirmed Problem Diverticular disease of colon (945518003) Diverticulosis of large intestine without perforation or abscess without bleeding (K57.30) Active confirmed Problem 338981812257893 Pre-procedural examination (Z01.818) Active confirmed Encounters Encounter Location Date Provider Diagnosis [facility] [place] [address] [place], [place] [phone] 08/19/2023 Devora Parekh Encounter for screen ing colonoscopy Z12.11 ; Personal history of colonic polyps Z86.010 ; Diverticulosis of large intestine without perforation or abscess without bleeding K57.30 and Other hemorrhoids K64.8 [facility] [address] [place] [address] 01/18/2024 Devora Parekh Assessments Encounter Date Diagnosis [...] Insured Coverage Start Date Coverage End Date [facility] [address] [place], [place] [id number] [phone] [id number] 00 DEVORA CANALES Self - patient is the insured Medical (General) History Medical History History ICD Code Denies [place],DM,CVA,renal disease Sees a urologist for bladder issues Melanoma as below Hypertension Asthma-- exercised induced Screening colonoscopy in May 2018 with removal of a small tubular adenoma Surgical History Surgery Date(Month/Year) Oral surgery x2 Right finger surgery with bone graft fro m right hip Hernia repair--right inguinal Melanoma excision--2001--right upper arm , negative lymph node Left [place]'s tendon repair in 03/2021
--- NOTE | 2024-07-07 14:13 | A.OFFVIS_ITS ---
Vital Signs 07/07/24 14:14 Height 5 ft 10 in Weight 171 lb BMI 24.5 Intake Visit Reasons: OV- LT Achilles repair 04/01/23 NE f/u Intake Note: Wes is a 58 year old male who presents today for a wound check about 3 months status post left Achilles repair on 04/01/[address] Aguayo. At his last visit patient was instructed to continue daily dressing changes. States he has had drainage and no pain just mild discomfort if he bang it on a surface. Allergies penicillin V Allergy (Intermediate, Verified 07/07/24 14:16) hives HPI HPI OV- LT Achilles repair 04/01/23 NE f/u: Details: Wes is a 58 year old male who presents today for a wound check about 3 months status post left Achilles repair on 04/01/[address] Aguayo. At his last visit patient was instructed to continue daily dressing changes. States he has had drainage and no pain just mild discomfort if he bang it on a surface. Over the past weeks to wound has increased again and has been draining again. [facility] Medical History Asthma Left groin pain AMEYA (generalized anxiety disorder) Borderline high cholesterol HTN (hypertension) Surgical History History of oral surgery History of hip surgery History of surgery on arm H/O hernia repair Family History Mother Lung cancer Social History Housing: House Alcohol intake: current Alcohol intake frequency: a few times a week Alcohol type: beer and wine Patient Tobacco Use Status: Never used Tobacco e-Cigarette/Vaping Use: Never Used Second Hand Smoke Exposure: No service: No Current occupational status: retired Cognitive needs: No Hearing needs: No Vision needs: No Physical Exam Vital Signs: BMI result Body Mass Index 24.5 Extrem Other: On physical examination there is a of bulbous an erythematous collection of fluid over the distal aspect of the prior Achilles incision. This is mildly tender and not actively draining. Assessment & Plan Assessment & Plan (1) Wound check, abscess: Code(s): Z51.89 - Encounter for other specified aftercare Category: Medical Plan: Status post Achilles tendon repair about 16 months ago with wound complications and chronic intermittent abscess formation. I recommend debridement and irrigation of the wound. He wants to wait to do this and for another week or 2 because of some ongoing commitments. I offered to drain it today but he is not interested. I do recommend surgery and he agrees. I discussed the risks of recurrent wound healing problems and incomplete symptom resolution as well as the standard surgical risks. He expressed understanding and we will proceed forward accordingly (2) S/P Achilles tendon repair: Onset Date: ~04/01/23 Comment: Left Achilles tendon repair NE Code(s): Z98.890 - Other specified postprocedural states Category: Surgical Plan: Coding Level of Care Code Est Pt Level 4 (95213) Diagnoses Wound check, abscess Z51.89 S/P Achilles tendon repair Z98.890
[2024-07-07 14:14] VITALS: BMI 24.5
== END 2024-07-07 14:37 | disposition home or self-care (01) ==
LOC: HO.HOS 13:18
PROVIDERS: Visit Provider Orthopaedic Surgery
DX: Z51.89 Encounter for other specified aftercare (principal); Z98.890 Other specified postprocedural states; S86.002D Unspecified injury of left Achilles tendon, subsequent encounter
CPT/HCPCS: 99214

== ENCOUNTER 2024-07-20 08:44 | Day surgery (SDC) | payer BC, SELFPAY ==
--- OUTSIDE RECORDS SUMMARY | 2024-07-11 07:48 | XMS_ITS | Patient Health Record ---
Author Organization [facility] Address [address] [place] [address] Care Team Providers Care Carburetor Specialist Name Role Phone Vignesh Trevino Primary Care Provider UnavailDevora Martin Unavailable [phone] Allergies Allergen (clinical drug ingredient) Drug/Non Drug [...] EVERY DAY Oral for 90 Unknown Saw [place] Unknown Immunizations Vaccine Route Administration Date Status [...] Problem Status W/U Status Risk Notes Problem 334148885 Encounter for screening for malignant neoplasm of colon (Z12.11) Active confirmed Problem History of adenomatous polyp of colon (299120677) History of adenomatous polyp of colon (Z86.010) Active confirmed Problem History of polyp of colon (situation) (893721186) Personal history of colonic polyps (Z86.010) Active confirmed Problem Diverticular disease of colon (122547573) Diverticulosis of large intestine without perforation or abscess without bleeding (K57.30) Active confirmed Problem 260324275109433 Pre-procedural examination (Z01.818) Active confirmed Encounters Encounter Location Date Provider Diagnosis [facility] [place] [address] [place], [place] [phone] 08/19/2023 Devora Parekh Encounter for screen ing colonoscopy Z12.11 ; Personal history of colonic polyps Z86.010 ; Diverticulosis of large intestine without perforation or abscess without bleeding K57.30 and Other hemorrhoids K64.8 [facility] [address] [place] [address] 01/18/2024 Devora Parekh Assessments Encounter Date Diagnosis [...] Insured Coverage Start Date Coverage End Date [facility] [address] [place], [place] [id number] [phone] [id number] 00 DEVORA CANALES Self - patient is the insured Medical (General) History Medical History History ICD Code Denies [place],DM,CVA,renal disease Sees a urologist for bladder issues Melanoma as below Hypertension Asthma-- exercised induced Screening colonoscopy in May 2018 with removal of a small tubular adenoma Surgical History Surgery Date(Month/Year) Oral surgery x2 Right finger surgery with bone graft fro m right hip Hernia repair--right inguinal Melanoma excision--2001--right upper arm , negative lymph node Left [place]'s tendon repair in 03/2021
[2024-07-18 07:51] VITALS: BMI 24.5
--- NOTE | 2024-07-18 14:55 | HO.ANESPROP2 ---
Documented by User: Christie Yun NP 07/18/24 14:56 HPI - Anesthesia Eval Consult details Narrative: 59yo M for Left Debridement of Achilles PMFSH Active Problems Active Problems: All Active Problems Wound check, abscess (Acute) Erectile dysfunction (Acute) S/P Achilles tendon repair (Acute ~04/01/23) Rupture of left Achilles tendon (Acute) Colon cancer screening (Acute) HLD (hyperlipidemia) (Acute) ADD (attention deficit disorder) (Acute) Annual physical exam (Acute) Inguinal hernia (Acute) Abnormal perception (Acute) Spastic bladder (Acute) Annual physical exam (Acute) Intermittent headache (Acute) Left groin pain (Acute) AMEYA (generalized anxiety disorder) (Acute) HTN (hypertension) (Acute) Borderline high cholesterol (Acute) Past Medical History Medical History Bradycardia Achilles rupture Asthma Left groin pain AMEYA (generalized anxiety disorder) Borderline high cholesterol HTN (hypertension) Family History Family History Mother Lung cancer Family history of problems with anesthesia: No Surgical History Surgical History History of oral surgery History of hip surgery History of surgery on arm H/O hernia repair History of Problems with Anesthesia: No Social History Social History Housing: House Alcohol intake: current Alcohol intake frequency: holidays/special occasions only Alcohol type: beer and wine Patient Tobacco Use Status: Never used Tobacco e-Cigarette/Vaping Use: Never Used Second Hand Smoke Exposure: No Have you been hit, kicked, punched, or otherwise hurt by someone within the past year? If so, by whom?: No Are you DNR?: No Advance Directives: No Advance Directives Information Provided: Yes service: No Current occupational status: retired Cognitive needs: No Hearing needs: No Vision needs: No Meds Allergies Allergy/AdvReac Type Severity Reaction Status Date / Time penicillin V Allergy Intermediate hives Verified 07/07/24 14:16 Home Medications ?Medication ?Instructions ?Recorded ?Confirmed ?Last Taken ?Type propranolol 10 mg tablet 10 mg PO BID PRN Anxiety 04/01/23 04/12/24 Unknown History Exam Height,Weight and Vital Signs: Height 5 ft 10 in Weight 77.564 kg Pertinent Lab Results Pertinent Lab Results: Laboratory Tests 04/08/24 07:04 WBC 5.1 Hgb 13.5 L Hct 39.8 L Plt Count 257 Sodium 139 Potassium 4.2 Chloride 104 Carbon Dioxide 28 BUN 21 H Creatinine 1.05 Assessment and Plan Assessment Anesthesia Assessment: Chart Reviewed Final Anesthetic Review Family History of Problems with Anesthesia: No History of Problems with Anesthesia: No Documented by User: Albert White MD 07/20/24 11:23 [facility] Past Medical History Medical History Bradycardia Achilles rupture Asthma Left groin pain AMEYA (generalized anxiety disorder) Borderline high cholesterol HTN (hypertension) Family History Family History Mother Lung cancer Surgical History Surgical History History of oral surgery History of hip surgery History of surgery on arm H/O hernia repair Social History Social History Housing: House Alcohol intake: current Alcohol intake frequency: holidays/special occasions only Alcohol type: beer and wine Patient Tobacco Use Status: Never used Tobacco e-Cigarette/Vaping Use: Never Used Second Hand Smoke Exposure: No Have you been hit, kicked, punched, or otherwise hurt by someone within the past year? If so, by whom?: No Are you DNR?: No Advance Directives: No Advance Directives Information Provided: Yes service: No Current occupational status: retired Cognitive needs: No Hearing needs: No Vision needs: No Meds Allergies Allergy/AdvReac Type Severity Reaction Status Date / Time penicillin V Allergy Intermediate hives Verified 07/07/24 14:16 Home Medications ?Medication ?Instructions ?Recorded ?Confirmed ?Last Taken ?Type propranolol 10 mg tablet 10 mg PO BID PRN Anxiety 04/01/23 04/12/24 Unknown History Exam Airway Mallampati Class: III TM Dist: >3cm Neck ROM: Full Heart: RRR Lungs: CTA Assessment and Plan Final Anesthetic Review NPO: Yes ASA Class: II Final Preanesthetic Review: No Changes in Pt Med Stat Patient Risk: Low Procedure Risk: Low Anesthetic Plan Anesthetic Plan: GA Disposition: Standard PACU
[2024-07-20] VITALS (9 sets, daily range): BP systolic 109–142; BP diastolic 52–84; PULSE 47–66; RESP 16–20; TEMP 36.2–36.9; O2SAT 96–100; BMI 24.1
[2024-07-20] MEDS: Lactated Ringers 1,000 ML 100 ML IVCONT (10:37)
--- NOTE | 2024-07-20 11:23 | MHC.SHP ---
Pre-Procedural Eval Section A - 24 Hr Update-Section A only Date of Service: 07/20/24 The patient is an INPATIENT: No Changes since office visit: No Cold of Flu in the past 2 weeks, No New Medical Problems, No Changes in Medication and No Patient answered all questions The patient has been examined within 24 hours of the surgical procedure. The History & Physical has been completed within 30 days and I have reviewed it.: Yes Section B - Complete if H&P > 30 days Chief Complaint: Unspecified injury of left Achilles tendon, Allergies: Allergies Allergy/AdvReac Type Severity Reaction Status Date / Time penicillin V Allergy Intermediate hives Verified 07/07/24 14:16 Plan I have reviewed the history and physical and performed a pertinent physical examination on my patient. No changes have occurred unless specified. Time Spent With Patient Time: Total time managing care of this patient today ____ minutes.
--- NOTE | 2024-07-20 14:40 | P.CONAN_ITS ---
[facility] Active Problems Active Problems: All Active Problems Wound check, abscess (Acute) Erectile dysfunction (Acute) S/P Achilles tendon repair (Acute ~04/01/23) Rupture of left Achilles tendon (Acute) Colon cancer screening (Acute) HLD (hyperlipidemia) (Acute) ADD (attention deficit disorder) (Acute) Annual physical exam (Acute) Inguinal hernia (Acute) Abnormal perception (Acute) Spastic bladder (Acute) Annual physical exam (Acute) Intermittent headache (Acute) Left groin pain (Acute) AMEYA (generalized anxiety disorder) (Acute) HTN (hypertension) (Acute) Borderline high cholesterol (Acute) Past Medical History Medical History Bradycardia Achilles rupture Asthma Left groin pain AMEYA (generalized anxiety disorder) Borderline high cholesterol HTN (hypertension) Family History Family History Mother Lung cancer Family history of problems with anesthesia: No Surgical History Surgical History History of oral surgery History of hip surgery History of surgery on arm H/O hernia repair History of Problems with Anesthesia: No Social History Social History Housing: House Alcohol intake: current Alcohol intake frequency: holidays/special occasions only Alcohol type: beer and wine Patient Tobacco Use Status: Never used Tobacco e-Cigarette/Vaping Use: Never Used Second Hand Smoke Exposure: No Have you been hit, kicked, punched, or otherwise hurt by someone within the past year? If so, by whom?: No Are you DNR?: No Advance Directives: No Advance Directives Information Provided: Yes service: No Current occupational status: retired Cognitive needs: No Hearing needs: No Vision needs: No Meds Allergies Allergy/AdvReac Type Severity Reaction Status Date / Time penicillin V Allergy Intermediate hives Verified 07/07/24 14:16 Active Medications: Current Medications Fentanyl (Fentanyl Citrate/Pf 100 Mcg/2 Ml Vial) 25 mcg IVPUSH Q5M PRN PRN Reason: Pain, Moderate to Severe (Pain Scale 4-10) Stop: 07/20/24 17:24 Lactated Ringer's (Lr) 1,000 mls @ 100 mls/hr IVCONT .Q10H [facility] Last Admin: 07/20/24 10:37 Dose: 100 mls/hr Lactated Ringer's (Lr) 500 mls @ 20 mls/hr IVCONT .Q24H [facility] Acetaminophen (Ofirmev) 1,000 mg in 100 mls @ 400 mls/hr IV ONCE PRN PRN Reason: Pain, Mild (Pain Scale 1-3) Stop: 07/20/24 17:25 Ketorolac Tromethamine (Ketorolac Tromethamine 15 Mg/Ml Vial) 15 mg IVPUSH ONCE PRN PRN Reason: Pain, Moderate(Pain Scale 4-6) Stop: 07/20/24 17:25 Naloxone HCl (Naloxone Hcl 0.4 Mg/Ml Vial) 0.04 mg IVPUSH Q5M PRN PRN Reason: Excessive sedation or RR < 8 Home Medications ?Medication ?Instructions ?Recorded ?Confirmed ?Last Taken ?Type propranolol 10 mg tablet 10 mg PO BID PRN Anxiety 04/01/23 04/12/24 Unknown History Exam Height,Weight and Vital Signs: Height 5 ft 10 in Weight 76.2 kg Last Vital Signs Temp 98.5 F 07/20/24 10:16 Pulse 49 L 07/20/24 10:16 Resp 20 07/20/24 10:16 BP 142/84 H 07/20/24 10:16 Pulse Ox 98 07/20/24 10:16 O2 Del Method Room Air 07/20/24 10:16 Airway Mallampati Class: II TM Dist: >3cm Neck ROM: Full Heart: RRR Lungs: CTA Assessment and Plan Assessment Anesthesia Assessment: Anesthesia Plan Discussed Final Anesthetic Review Family History of Problems with Anesthesia: No History of Problems with Anesthesia: No NPO: Yes ASA Class: II Final Preanesthetic Review: Meds/Allgs Chart Reviewed, Consent Obtained/Reviewed and Anes Risks/Benef Reviewed Patient Risk: Intermediate Procedure Risk: Low Anesthetic Plan Anesthetic Plan: GA Disposition: Standard PACU
--- NOTE | 2024-07-20 16:17 | P.BOP_ITS ---
Brief Operative Note Date of Service: 07/20/24 Pre-op diagnosis: left achilles woudn infection Post-op diagnosis: same Procedure: Incision and debridement left abby Surgeon: Kartik Aguayo MD Anesthesia: GETA and local Was an Cardiology Physician used for this Procedure?: No Estimated blood loss (mL): 25 IV fluids (mL): 750 Pathology: other Condition: stable Disposition: PACU
[2024-07-20] MEDS: Ketorolac Tromethamine 15 MG/ML VIAL IVPUSH (16:53)
[2024-07-20] MEDS: droPERidol 5 MG/2 ML VIAL 0.625 MG IVPUSH (17:00)
--- NOTE | 2024-07-26 09:34 | P.OP_ITS ---
Operative Note Operative Note Date of Service: 07/26/24 Narrative: Date of Service: 07/20/24 Pre-op diagnosis: left achilles wound infection Post-op diagnosis: same Procedure: Incision and debridement left achilles Surgeon: Kartik Aguayo MD Anesthesia: GETA and local Was an Divisional Human Resources Director used for this Procedure?: No Estimated blood loss (mL): 25 IV fluids (mL): 750 Pathology: other Condition: stable Disposition: PACU Patient was brought to the operating room and placed prone on the surgical table. All bony prominences were well padded and he was prepped and draped in standard sterile fashion and a time out was called to identify proper site, proper procedure and IV antibiotics per weight were administered. I began by incision adjacent to the chronic sinus using about 75% of the prior incision. There was no large fluid collection or clear area of infection. I did, however, encounter fiberwire that had been used for the repair. This was meticulously removed and sent for culture. Once all foreign material had been removed I examined the achilles. There was an intact Lazaro. The achilles remained intact but it had been filleted open to remove the fiber wire. I then irrigated with pulse lavage, a curette and a scalpel to remove all abnormal tissue. Once I was satisfied with the debridement and lavage I closed the skin with nylon. Prior to closure I debrided the sinus tract and this was closed. Patient was then placed in sterile dressing and awakened from anesthesia. There were no known complications.
== END 2024-07-20 18:15 | disposition home or self-care (01) ==
PROVIDERS: PCP Physician Assistant; Visit Provider Orthopaedic Surgery
PROC: (CPT 11044; principal; 2024-07-20 12:30)
DX: T81.89XA Other complications of procedures, not elsewhere classified, initial encounter (principal); L76.82 Other postprocedural complications of skin and subcutaneous tissue; L03.116 Cellulitis of left lower limb; B95.1 Streptococcus, group B, as the cause of diseases classified elsewhere; Y79.8 Miscellaneous orthopedic devices associated with adverse incidents, not elsewhere classified; E78.5 Hyperlipidemia, unspecified; I10 Essential (primary) hypertension; J45.909 Unspecified asthma, uncomplicated; F41.1 Generalized anxiety disorder; Z79.899 Other long term (current) drug therapy; Z88.0 Allergy status to penicillin; Z98.890 Other specified postprocedural states
CPT/HCPCS: 27654; 87070; 87073; 87147; 87205; J0131; J0736; J1100; J1790; J1885; J2003; J2250; J2405; J2704; J2795; J3010

== ENCOUNTER → 2024-07-20 08:44 | Outpatient (BNV) | payer BC, SELFPAY | PROVIDERS: PCP Physician Assistant; Visit Provider Orthopaedic Surgery | DX: S86.001A Unspecified injury of right Achilles tendon, initial encounter (principal) | CPT/HCPCS: 11043 ==

== ENCOUNTER 2024-07-28 10:43 | Outpatient (AMB) | payer BC, SELFPAY ==
--- NOTE | 2024-07-28 11:12 | MHC.OFFVIS ---
Intake Visit Reasons: PO LT achilles debridement 07/20/24 NE Intake Note: Wes is a 59 year old male who presents today for a post operative appointment s/p left achilles debridement 07/20/24 NE. Patient reports he is doing well. He is using his crutches when he is ambulating. Allergies penicillin V Allergy (Intermediate, Verified 07/28/24 11:26) hives HPI HPI PO LT achilles debridement 07/20/24 NE: Details: Mr. Berrios this is a 59-year-old male who presents to the office today status post left Achilles debridement on 07/20/[address] Aguayo. Patient has been using his crutches to assist with ambulation. Overall he is feeling well and experiencing minimal pain. No additional complaints at this time. [facility] Medical History Bradycardia Achilles rupture Asthma Left groin pain AMEYA (generalized anxiety disorder) Borderline high cholesterol HTN (hypertension) Surgical History History of oral surgery History of hip surgery History of surgery on arm H/O hernia repair Family History Mother Lung cancer Social History Housing: House Alcohol intake: current Alcohol intake frequency: holidays/special occasions only Alcohol type: beer and wine Patient Tobacco Use Status: Never used Tobacco e-Cigarette/Vaping Use: Never Used Second Hand Smoke Exposure: No service: No Current occupational status: retired Cognitive needs: No Hearing needs: No Vision needs: No Review of Systems Const All systems reviewed & are unremarkable except as noted in HPI and below Physical Exam Extrem Other: Left Achilles incision site is clean dry and intact. Sutures are intact. No surrounding erythema or drainage. Mild to moderate edema on the medial and lateral aspects of the incision. Able to perform dorsiflexion and plantar flexion. Negative Lazaro's. NVI. Assessment & Plan Assessment & Plan (1) S/P Achilles tendon repair: Onset Date: ~04/01/23 Comment: Left Achilles tendon repair NE Code(s): Z98.890 - Other specified postprocedural states Category: Surgical Plan Wes is a 59 year old male who presents today for a post operative appointment s/p left achilles debridement 07/20/24 NE. Patient reports he is doing well. He is using his crutches when he is ambulating. He will continue using crutches until his follow up appointment in 1 week. I anticipate his sutures will be ready to be removed at that time. I did dress the incision site with a nonstick gauze and Kerlix to protect the incision site. I provided the patient with supplies for 1 week until his follow up. Additionally, I sent doxycycline 100 mg to be taken b.i.d. for the next 14 days. He will follow up in 1 week for anticipated suture removal, sooner if needed. Routine culture obtained during surgery: Gram stain Final 07/21/24-803 Gram stain results: No polys 1+ Gram-positive cocci Routine Culture Final 07/23/24-918 Organism 1 Strep agalactiae (Grp B) Quantity 1+ Susc N/A Susceptibility not routinely performed on this isolate. Result: 1+ Mixed skin afsaneh Anaerobic Culture Final 07/26/24-804 Report No anaerobes isolated. Medications: Changed From doxycycline monohydrate 100 mg PO BID 10 days 20 tabs 0RF To doxycycline monohydrate 100 mg PO BID 28 tabs 0RF 14 days Coding Level of Care Code Global (47222) Diagnoses S/P Achilles tendon repair Z98.890
--- OUTSIDE RECORDS SUMMARY | 2024-07-28 12:13 | XMS_ITS | Patient Health Record ---
Author Organization [facility] Address [address] [place] [address] Care Team Providers Care Associate Trainer Name Role Phone Vignesh Trevino Primary Care Provider UnavailDevora Martin Unavailable [phone] Allergies Allergen (clinical drug ingredient) Drug/Non Drug [...] EVERY DAY Oral for 90 Unknown Saw [place] Unknown Immunizations Vaccine Route Administration Date Status [...] Problem Status W/U Status Risk Notes Problem [id number] Encounter for screening for malignant neoplasm of colon (Z12.11) Active confirmed Problem History of adenomatous polyp of colon (860032249) History of adenomatous polyp of colon (Z86.010) Active confirmed Problem Personal history of colonic polyps (Z86.010) Active confirmed Problem Diverticulosis o f large intestine without perforation or abscess without bleeding (K57.30) Active confirmed Problem [id number] Pre-procedural examination (Z01.818) Active confirmed Encounters Encounter Location Date Provider Diagnosis [facility] [place] [address] [place] [phone] 08/19/2023 Devora Parekh Encounter for screen ing colonoscopy Z12.11 ; Personal history of colonic polyps Z86.010 ; Diverticulosis of large intestine without perforation or abscess without bleeding K57.30 and Other hemorrhoids K64.8 [facility] [address] [place] [address] 01/18/2024 Devora Parekh Assessments Encounter Date Diagnosis [...] Insured Coverage Start Date Coverage End Date [facility] [address] [place], [place] [id number] [phone] [id number] DEVORA CANALES Self - patient is the insured Medical (General) History Medical History History ICD Code Denies [place],DM,CVA,renal disease Sees a urologist for bladder issues [...]
== END 2024-07-28 11:34 | disposition home or self-care (01) ==
LOC: HO.HOS 10:44
PROVIDERS: Visit Provider Physician Assistant
DX: Z98.890 Other specified postprocedural states (principal)
CPT/HCPCS: 99024

== ENCOUNTER 2024-08-05 10:11 | Outpatient (AMB) | payer BC, SELFPAY ==
--- NOTE | 2024-08-05 10:27 | A.OFFVIS_ITS ---
Intake Visit Reasons: PO LT achilles debridement 07/20/24 NE Intake Note: Wes is a 59 year old male who presents today for a post operative wound check status post left achilles debridement on 07/20/[address] Aguayo. Patient reports slight drainage that is notices upon changing bandages. He continues to take antibiotics as prescribed. Allergies penicillin V Allergy (Intermediate, Verified 07/28/24 11:26) hives HPI HPI PO LT achilles debridement 07/20/24 NE: Details: Mr. Berrios is a 59-year-old male who presents to the office today status post left Achilles debridement on 07/20/[address] Aguayo. Patient has been keeping a clean and dry dressing over the area as instructed. [facility] Medical History Bradycardia Achilles rupture Asthma Left groin pain AMEYA (generalized anxiety disorder) Borderline high cholesterol HTN (hypertension) Surgical History History of oral surgery History of hip surgery History of surgery on arm H/O hernia repair Family History Mother Lung cancer Social History Housing: House Alcohol intake: current Alcohol intake frequency: holidays/special occasions only Alcohol type: beer and wine Patient Tobacco Use Status: Never used Tobacco e-Cigarette/Vaping Use: Never Used Second Hand Smoke Exposure: No service: No Current occupational status: retired Cognitive needs: No Hearing needs: No Vision needs: No Review of Systems Const All systems reviewed & are unremarkable except as noted in HPI and below Physical Exam Extrem Other: Left Achilles incision site is clean dry and intact. Sutures are intact. No surrounding erythema or drainage. Mild to moderate edema on the medial and lateral aspects of the incision. Able to perform dorsiflexion and plantar flexion. Negative Lazaro's. NVI. Assessment & Plan Assessment & Plan (1) S/P Achilles tendon repair: Onset Date: ~04/01/23 Comment: Left Achilles tendon repair NE Code(s): Z98.890 - Other specified postprocedural states Category: Surgical Plan Mr. Berrios is a 59-year-old male who presents to the office today status post left Achilles debridement on 07/20/[address] Aguayo. Patient has been keeping a clean and dry dressing over the area as instructed. The office today sutures are removed. No Steri-Strips were applied due to concern of irritation of the skin. Incision site was dressed with a nonstick dressing and an Carlyle bandage. He will continue to do these dressing changes until his follow up appointment in 2 weeks with me, sooner if needed. Coding Level of Care Code Global (73478) Diagnoses S/P Achilles tendon repair Z98.890
--- OUTSIDE RECORDS SUMMARY | 2024-08-05 10:52 | XMS_ITS | Patient Health Record ---
Author Organization [facility] Address [address] [place] [id number] Care Team Providers Care Cinema Operator Name Role Phone Vignesh Trevino Primary Care Provider UnavailDevora Martin Unavailable [phone] Allergies Allergen (clinical drug ingredient) Drug/Non Drug [...] EVERY DAY Oral for 90 Unknown Saw [place] Unknown Immunizations Vaccine Route Administration Date Status [...] Problem Status W/U Status Risk Notes Problem [id number] Encounter for screening for malignant neoplasm of colon (Z12.11) Active confirmed Problem History of adenomatous polyp of colon (203940863) History of adenomatous polyp of colon (Z86.010) Active confirmed Problem History of polyp of colon (situation) (538126707) Personal history of colonic polyps (Z86.010) Active confirmed Problem Diverticular disease of colon (747538213) Diverticulosis of large intestine without perforation or abscess without bleeding (K57.30) Active confirmed Problem [id number] Pre-procedural examination (Z01.818) Active confirmed Encounters Encounter Location Date Provider Diagnosis [facility] [place] [address] [place], [place] [phone] 08/19/2023 Devora Parekh Encounter for screen ing colonoscopy Z12.11 ; Personal history of colonic polyps Z86.010 ; Diverticulosis of large intestine without perforation or abscess without bleeding K57.30 and Other hemorrhoids K64.8 [facility] [address] [place] [address] 01/18/2024 Devora Parekh Assessments Encounter Date Diagnosis [...] Insured Coverage Start Date Coverage End Date [facility] [address] [place], [place] [id number] DEVORA CANALES Self - patient is the insured Medical (General) History Medical History History ICD Code Denies [place],DM,CVA,renal disease Sees a urologist for bladder issues Melanoma as below Hypertension Asthma-- exercised induced Screening colonoscopy in May 2018 with removal of a small tubular adenoma Surgical History Surgery Date(Month/Year) Oral surgery x2 Right finger surgery with bone graft fro m right hip Hernia repair--right inguinal Melanoma excision--2001--right upper arm , negative lymph node Left [place]'s tendon repair in 03/2021
== END 2024-08-05 11:50 | disposition home or self-care (01) ==
LOC: HO.HOS 10:12
PROVIDERS: PCP Physician Assistant; Visit Provider Physician Assistant
DX: Z98.890 Other specified postprocedural states (principal)
CPT/HCPCS: 99024

== ENCOUNTER 2024-08-18 10:37 | Outpatient (AMB) | payer BC, SELFPAY ==
--- NOTE | 2024-08-18 10:39 | MHC.OFFVIS ---
Intake Visit Reasons: PO LT achilles debridement 07/20/24 NE Intake Note: Wes is a 59 year old male who presents today for a post operative wound check status post left achilles debridement on 07/20/[address] Aguayo. Patient is doing well. Incision site looks clean and no redness. Allergies penicillin V Allergy (Intermediate, Verified 08/18/24 10:45) hives HPI HPI PO LT achilles debridement 07/20/24 NE: Details: Mr. Berrios is a 59-year-old male who presents to the office today status post left Achilles debridement performed on 07/20/[address] Aguayo. He was last seen in our office on 08/05/2024 where the patient was instructed to keep it clean and dry dressing over the area. Additionally, he was changing the dressings daily and applying an Carlyle bandage for protection. He reports no drainage or increased pain in the area. Overall he is doing very well. [facility] Medical History Bradycardia Achilles rupture Asthma Left groin pain AMEYA (generalized anxiety disorder) Borderline high cholesterol HTN (hypertension) Surgical History History of oral surgery History of hip surgery History of surgery on arm H/O hernia repair Family History Mother Lung cancer Social History Housing: House Alcohol intake: current Alcohol intake frequency: holidays/special occasions only Alcohol type: beer and wine Patient Tobacco Use Status: Never used Tobacco e-Cigarette/Vaping Use: Never Used Second Hand Smoke Exposure: No service: No Current occupational status: retired Cognitive needs: No Hearing needs: No Vision needs: No Review of Systems Const All systems reviewed & are unremarkable except as noted in HPI and below Physical Exam Extrem Other: Left Achilles incision site is clean dry and intact. Reminisce of one remaining suture in place. No surrounding erythema or drainage. No signs of infection. Able to perform dorsiflexion and plantar flexion. Negative Lazaro's. NVI. Assessment & Plan Assessment & Plan (1) S/P Achilles tendon repair: Onset Date: ~04/01/23 Comment: Left Achilles tendon repair NE Code(s): Z98.890 - Other specified postprocedural states Category: Surgical Plan Mr. Berrios is a 59-year-old male who presents to the office today status post left Achilles debridement performed on 07/20/[address] Aguayo. He was last seen in our office on 08/05/2024 where the patient was instructed to keep it clean and dry dressing over the area. Additionally, he was changing the dressings daily and applying an Carlyle bandage for protection. He reports no drainage or increased pain in the area. Overall he is doing very well. While the office today, the patient was instructed to leave the area clean dry and intact. He no longer needs to perform dressing changes. He was instructed that if he does wear shoes that he should avoid any opportunity for the back of the shoe to rub over the area. I did instruct him that if this does occur that he should then put a gauze and tape over the area to protect the integrity of the skin. He will follow up in 3 weeks, sooner if needed. Coding Level of Care Code Global (09773) Diagnoses S/P Achilles tendon repair Z98.890
--- OUTSIDE RECORDS SUMMARY | 2024-08-18 11:17 | XMS_ITS | Patient Health Record ---
Author Organization [facility] Address [address] [place] [address] Care Team Providers Care Inspector Rag Sorting Name Role Phone Vignesh Trevino Primary Care Provider UnavailDevora Martin Unavailable [phone] Allergies Allergen (clinical drug ingredient) Drug/Non Drug [...] EVERY DAY Oral for 90 Unknown Saw [place] Unknown Immunizations Vaccine Route Administration Date Status [...] Problem Status W/U Status Risk Notes Problem [id number] Encounter for screening for malignant neoplasm of colon (Z12.11) Active confirmed Problem History of adenomatous polyp of colon (169344113) History of adenomatous polyp of colon (Z86.010) Active confirmed Problem History of polyp of colon (situation) (397649098) Personal history of colonic polyps (Z86.010) Active confirmed Problem Diverticular disease of colon (128915137) Diverticulosis of large intestine without perforation or abscess without bleeding (K57.30) Active confirmed Problem [id number] Pre-procedural examination (Z01.818) Active confirmed Encounters Encounter Location Date Provider Diagnosis [facility] [place] [address] [place], [place] [phone] 08/19/2023 Devora Parekh Encounter for screen ing colonoscopy Z12.11 ; Personal history of colonic polyps Z86.010 ; Diverticulosis of large intestine without perforation or abscess without bleeding K57.30 and Other hemorrhoids K64.8 [facility] [address] [place] [address] 01/18/2024 Devora Parekh Assessments Encounter Date Diagnosis [...] Insured Coverage Start Date Coverage End Date [facility] [address] [place], [place] [id number] [phone] [id number] DEVORA CANALES Self - patient is the insured Medical (General) History Medical History History ICD Code Denies [place],DM,CVA,renal disease Sees a urologist for bladder issues Melanoma as below Hypertension Asthma-- exercised induced Screening colonoscopy in May 2018 with removal of a small tubular adenoma Surgical History Surgery Date(Month/Year) Oral surgery x2 Right finger surgery with bone graft fro m right hip Hernia repair--right inguinal Melanoma excision--2001--right upper arm , negative lymph node Left [place]'s tendon repair in 03/2021
== END 2024-08-18 10:56 | disposition home or self-care (01) ==
LOC: HO.HOS 10:38
PROVIDERS: PCP Physician Assistant; Visit Provider Physician Assistant
DX: Z98.890 Other specified postprocedural states (principal)
CPT/HCPCS: 99024

== ENCOUNTER 2024-09-08 10:11 | Outpatient (AMB) | payer BC, SELFPAY ==
[2024-09-08 10:30] VITALS: BMI 24.0
--- NOTE | 2024-09-08 10:30 | MHC.OFFVIS ---
Vital Signs 09/08/24 10:30 Height 5 ft 10 in Weight 167 lb BMI 24.0 Intake Visit Reasons: PO LT achilles debridement 07/20/24 NE Intake Note: Wes is a 59 year old male who presents today for a post operative appointment status post left achilles debridement on 07/20/[address] Aguayo. At his last visit he was instructed to be mindful of the shoes he wears to keep the back of the shoe from rubbing over the area. Patient states he is doing very well. Denies numbness, pond. Allergies penicillin V Allergy (Intermediate, Verified 08/18/24 10:45) hives HPI HPI PO LT achilles debridement 07/20/24 NE: Details: Mr. Berrios is a 59-year-old male who presents to the office today status post left Achilles debridement performed on 07/20/[address] Aguayo. He was last seen in our office on 08/18/2024 where the patient was instructed to keep it clean and dry dressing over the area and to avoid any irritation from footwear over the area. Overall, the patient is doing exceptionally well. The remaining scab over the area has fallen off on its own. He denies any irritation, redness or drainage. Denies any open areas. No additional complaints [facility] Medical History Bradycardia Achilles rupture Asthma Left groin pain AMEYA (generalized anxiety disorder) Borderline high cholesterol HTN (hypertension) Surgical History (Reviewed 08/05/24 @ 10:33 by Kendy Carey [facility]) History of oral surgery History of hip surgery History of surgery on arm H/O hernia repair Family History Mother Lung cancer Social History Housing: House Alcohol intake: current Alcohol intake frequency: holidays/special occasions only Alcohol type: beer and wine Patient Tobacco Use Status: Never used Tobacco e-Cigarette/Vaping Use: Never Used Second Hand Smoke Exposure: No service: No Current occupational status: retired Cognitive needs: No Hearing needs: No Vision needs: No Review of Systems Const All systems reviewed & are unremarkable except as noted in HPI and below Physical Exam Vital Signs: BMI result Body Mass Index 24.0 Extrem Other: Left Achilles incision site is clean dry and intact. The incision site has completely healed and is well approximated. No surrounding erythema or drainage. No signs of infection. Able to perform dorsiflexion and plantar flexion. Negative Lazaro's. NVI. Assessment & Plan Assessment & Plan (1) S/P Achilles tendon repair: Onset Date: ~04/01/23 Comment: Left Achilles tendon repair NE Code(s): Z98.890 - Other specified postprocedural states Category: Surgical (2) Rupture of left Achilles tendon: Code(s): S86.012A - Strain of left Achilles tendon, initial encounter Category: Medical Qualifiers: Encounter type: initial encounter Qualified Code(s): S86.012A - Strain of left Achilles tendon, initial encounter Plan Mr. Berrios is a 59-year-old male who presents to the office today status post left Achilles debridement performed on 07/20/[address] Aguayo. He was last seen in our office on 08/18/2024 where the patient was instructed to keep it clean and dry dressing over the area and to avoid any irritation from footwear over the area. Overall, the patient is doing exceptionally well. The remaining scab over the area has fallen off on its own. He denies any irritation, redness or drainage. Denies any open areas. No additional complaints While in the office today the incision site has been well approximated and has completely healed with no signs of infection. At this time, the patient can resume back to normal activities as tolerated. He will follow up PRN, sooner if needed. Coding Level of Care Code Est Pt Level 3 (92224) Diagnoses S/P Achilles tendon repair Z98.890 Rupture of left Achilles tendon, initial encounter S86.012A Encounter type: initial encounter
--- OUTSIDE RECORDS SUMMARY | 2024-09-08 10:55 | XMS_ITS | Clinical Summary ---
Author Organization [facility] Address [address] [place] [address] Phone Care Team Providers Care Chisel Grinder Name Role Phone Vignesh Trevino Primary Care Provider + Allergies Active Allergy Reactions Criticality Noted Date Comments Penicillins 05/06/2024 Medications BUPROPION HBR ORAL Take by mouth. Active LISINOPRIL ORAL Take by mouth. Active solifenacin succinate (VESICARE ORAL) Take by mouth. Active propranolol HCl (PROPRANOLOL ORAL) Take by mouth. Active sildenafil citrate (VIAGRA ORAL) Take by mouth. Active Social History Tobacco Use Types Packs/Day Years Used Date Smoking Tobacco: Never Assessed Education Answer Date Recorded Are you interested in more education? Not on sosa e 05/06/2024 Are you concerned about learning? Not on file 05/06/2024 No 05/06/2024 No 05/06/2024 Digital Access Answer Date Recorded No 05/06/2024 No 05/06/2024 Reliable internet access at home? Not on file 05/06/2024 Device with a working camera? Not on file Intimate Partner Violence Answer Date R ecorded Are you denied basic needs s uch as food, clothing, or medical care? No 05/06/2024 In the past 12 months have y ou been in a relationship with a person who hurts, threatens, or tries to control you? No 05/06/2024 Are you denied basic needs s uch as food, clothing, or medical care? No 05/06/2024 In the past 12 months have y ou been in a relationship with a person who hurts, threatens, or tries to control you? No 05/06/2024 Sex and Gender Information Value Date Recorded Sex Assigned at Male 05/06/2024 6:43 PM EDT Legal Sex Male 6:39 PM EDT Gender Identity Male 05/06/2024 6:43 PM EDT Sexual Orientation Not on file Last Filed Vital Signs Vital Sign Reading Time Taken Comments Blood Pressure 124/73 05/06/2024 9:27 PM EDT Pulse 60 05/06/2024 9:27 PM EDT Temperature 36.8 C (98.2 F) 05/06/2024 9:27 PM EDT Respiratory Rate 20 05/06/2024 9:27 PM EDT Oxygen Saturation 96% 05/06/2024 7:06 PM EDT Inhaled Oxygen Concentration - - Weight 76.7 kg (169 lb) 05/06/2024 9:27 PM EDT Height 177.8 cm (5' 10 ) 05/06/2024 9:27 PM EDT Body Mass Index 24.25 05/06/2024 9:27 PM EDT Plan of Treatment Health Maintenance Due Date Last Done Comments Adult Td,Tdap Booster 1967 LIPID PANEL 1967 DEPRESSION SCREENING 1979 SMOKING Hx and SMOKELESS TOB ACCO SCREENING 07/16/1980 HEPATITIS C SCREENING 07/16/1985 HIV ONE-TIME SCREENING (18-6 5 YEARS) 07/16/1985 COLOGUARD 07/16/2012 COLONOSCOPY 07/16/2012 COLORECTAL CANCER SCREENING 07/16/2012 FIT TEST 07/16/2012 FOBT 07/16/2012 SIGMOIDOSCOPY 07/16/2012 VIRTUAL COLONOSCOPY 07/16/2012 PNEUMOCOCCAL VACCINES (50+ y ears) (1 of 1 - PCV) 07/16/2017 ZOSTER VACCINES (1 of 2) 07/16/2017 COVID-19 VACCINE ( - 2023-2 5 season) 2023 CREATININE LEVEL 05/06/2025 05/06/2024 POTASSIUM LEVEL 05/06/2025 05/06/2024 HEPATITIS A VACCINES Aged Out No long er eligible based on patient's age to complete this topic HIB VACCINES Aged Out No longer eligi ble based on patient's age to complete this topic MENINGOCOCCAL VACCINES (ACWY) Aged Out No longer eligible based on patient's age to complete this topic MENINGOCOCCAL VACCINES (B) Aged Out N o longer eligible based on patient's age to complete this topic Medical Devices Not on file Procedures Procedure Name Priority Date/Time Associated Diagnosis Comments BASIC METABOLIC PANEL STAT 05/06/2024 7:14 PM EDT from Last 3 Months or Most Recently Relevant to Health Maintenance Results * (ABNORMAL) Basic metabolic panel (05/06/2024 7:14 PM EDT) SODIUM 138 133 - 146 mmol/L [facility] CHLORIDE 102 96 - 108 mmol/L [facility] POTASSIUM 3.6 3.3 - 5.1 mmol/L [facility] CO2 26 21 - 35 mmol/L [facility] BUN 20(H) 6 - 19 mg/dL [facility] CREATININE 1.10 0.5 - 1.5 mg/dL [facility] GLUCOSE 166(H) 70 - 99 mg/dL [facility] CALCIUM 9.1 8.4 - 10.3 mg/dL [facility] EGFR 79 >59 mL/min/1.7 3m2 [facility] Comment:Estimated glomerular filtration rate calculated using the CKD-EPI refit equation. ANION GAP 14 10 - 20 mmol/L [facility] Blood 05/06/2024 7:14 PM EDT 05/06/2024 7:25 PM EDT Mary Gavin PA-C LAB BLOOD ORDERABLES Final Result [facility] [address] [place] [address] from Last 3 Months or Most Recently Relevant to Health Maintenance Insurance [facility] PPO EPO PPO E[place] [address] [place] [address] [place] [address] [place] [address] PPO EPO [facility] PPO EPO Care Teams Chisel Grinder Relationship Specialty Start Date End Date Vignesh Trevino PA [address] [place] [address] PCP - General Physician Seo Executive 05/06/24 Additional Source Comments The information contained in this document represents components of the legal health record. It is not the complete legal health record.[facility]
--- OUTSIDE RECORDS SUMMARY | 2024-09-08 10:55 | XMS_ITS | Patient Health Record ---
Author Organization [facility] Address [address] [place] [address] Care Team Providers Care Job Counselor Name Role Phone Vignesh Trevino Primary Care Provider UnavailDevora Martin Unavailable [phone] Allergies Allergen (clinical drug ingredient) Drug/Non Drug [...] EVERY DAY Oral for 90 Unknown Saw [place] Unknown Immunizations Vaccine Route Administration Date Status [...] Problem Status W/U Status Risk Notes Problem [id number] Encounter for screening for malignant neoplasm of colon (Z12.11) Active confirmed Problem History of adenomatous polyp of colon (Z86.010) Active confirmed Problem Personal history of colonic polyps (Z86.010) Active confirmed Problem Diverticular disease of colon (680798284) Diverticulosis of large intestine without perforation or abscess without bleeding (K57.30) Active confirmed Problem [id number] Pre-procedural examination (Z01.818) Active confirmed Encounters Encounter Location Date Provider Diagnosis [facility] [address] [place] [address] 01/18/2024 Devora Parekh Plan Of Treatment Future Test Test Name Order Date COLONOSCOPY 01/13/2018 COLONOSCOPY 05/26/2023 Insurance Providers Payer Name Payer Address Payer Phone Subscriber Number Group Number Insured Name Patient Relationship to Insured Coverage Start Date Coverage End Date [facility] [address] [place], [place] [id number] DEVORA CANALES Self - patient is [...] upper arm , negative lymph node Left [place]'s tendon repair in 03/2021
== END 2024-09-08 10:38 | disposition home or self-care (01) ==
LOC: HO.HOS 10:12
PROVIDERS: PCP Physician Assistant; Visit Provider Physician Assistant
DX: Z47.89 Encounter for other orthopedic aftercare (principal); S86.012A Strain of left Achilles tendon, initial encounter
CPT/HCPCS: 99213

== ENCOUNTER 2024-10-12 08:24 | Outpatient (REF) | payer BC, SELFPAY ==
--- OUTSIDE RECORDS SUMMARY | 2023-08-19 07:30 | XMS_ITS ---
Author Organization [facility] Address [address] [place] [id number] Care Team Providers Care Manifold Operator Name Role Phone Vignesh Trevino Primary Care Provider Unavailab Devora Chahal Unavailable [phone] REASON FOR VISIT screening, hx polyps Problems Problem Type SNOMED Code ICD Code Onset Dates Problem Status W/U Status Risk Notes Problem History of polyp of colon (situation) (632202561) Personal history of colonic polyps (Z86.010) Active confirmed Problem Diverticular disease of colon (748175964) Diverticulosis of large intestine without perforation or abscess without bleeding (K57.30) Active confirmed Encounters Encounter Location Date Provider Diagnosis [facility] Outpatient [address] [place] [phone] 08/19/2023 Devora Parekh Encounter for scre ening [...] DEVORA CANALES RDOB: [birth year] (59 yo M)Acc No.[id number]:08/19/2023 COLON WITH MAC Patient: DEVORA HERNANDES Provider: Chichi Parekh MD :1965 A ge:58 Y S ex:Male Date:08/19/2023 Address:[address] [place] [address], Gayla Laurent, [id number] Pcp:Vignesh Trevino Subjective: * Chief Complaints: * [...] 08/19/2023 Generated for Paddy desai/Skylar/Josephsmitting on: 0 10/12/2024 08:49 AM EDT
--- OUTSIDE RECORDS SUMMARY | 2024-10-12 08:49 | XMS_ITS | Patient Health Record ---
Author Organization [facility] Address [address] [place] [address] Care Team Providers Care Rubber Insulator Name Role Phone Vignesh Trevino Primary Care Provider UnavailDevora Martin Unavailable [phone] Allergies Allergen (clinical drug ingredient) Drug/Non Drug [...] EVERY DAY Oral for 90 Unknown Saw [place] Unknown Immunizations Vaccine Route Administration Date Status [...] Problem Status W/U Status Risk Notes Problem [id number] Encounter for screening for malignant neoplasm of colon (Z12.11) Active confirmed Problem History of adenomatous polyp of colon (487766272) History of adenomatous polyp of colon (Z86.010) Active confirmed Problem History of polyp of colon (situation) (042522492) Personal history of colonic polyps (Z86.010) Active confirmed Problem Diverticular disease of colon (030593370) Diverticulosis of large intestine without perforation or abscess without bleeding (K57.30) Active confirmed Problem [id number] Pre-procedural examination (Z01.818) Active confirmed Encounters Encounter Location Date Provider Diagnosis [facility] [address] [place] [address] 01/18/2024 Devora Parekh Plan Of Treatment Future Test Test Name Order Date COLONOSCOPY 01/13/2018 COLONOSCOPY 05/26/2023 Insurance Providers Payer Name Payer Address Payer Phone Subscriber Number Group Number Insured Name Patient Relationship to Insured Coverage Start Date Coverage End Date [facility] [address] [place], [place] [phone] [id number] DEVORA CANALES Self - patient is the insured Medical (General) History Medical History History ICD Code Denies [place],DM,CVA,renal disease Sees a urologist for bladder issues [...]
[2024-10-12 10:23] LABS: Hematocrit 42.1 % (42.0-52.0); Hemoglobin 14.2 g/dl (14.0-18.0); Mean Corpuscular HGB Conc 33.7 g/dl (31.0-36.0); Mean Corpuscular Hemoglobin 31.1 pg (27.0-33.0); Mean Corpuscular Volume 92.1 fL (80.0-98.0); NRBC Abs Auto 0.000 X10*3/uL (0.0-0.012); NRBC Pct Auto 0.0 /100WBC (0.0-0.2); Platelet Count 270 X10*3/uL (160-400); Red Blood Count 4.57 X10*6/uL (4.60-5.80); White Blood Count 5.7 X10*3/uL (4.8-10.8)
[2024-10-12 10:34] LABS: Alanine Aminotransferase 25 U/L (0-40); Albumin Level 4.3 g/dL (3.5-5.0); Alkaline Phosphatase 74 U/L (39-117); Anion Gap 9 (12-20); Aspartate Amino Transferase 31 U/L (5-37); Blood Urea Nitrogen 26 mg/dL (9-16); Calcium 9.1 mg/dL (8.4-10.2); Carbon Dioxide 29 mmol/L (22-29); Chloride 105 mmol/L (96-108); Cholesterol 184 mg/dL (<200); Estimated Glomerular Filt Rate 48; HDL Cholesterol 57 mg/dL (>40); Potassium 4.3 mmol/L (3.3-5.1); Sodium 139 mmol/L (135-145); Total Protein 6.5 g/dL (6.5-8.0); Triglycerides 74 mg/dL (<150)
== END 2024-10-12 08:25 | disposition home or self-care (01) ==
LOC: HO.HMGCLDS 08:24
PROVIDERS: PCP Physician Assistant; Visit Provider Physician Assistant
DX: I10 Essential (primary) hypertension (principal); E78.2 Mixed hyperlipidemia
CPT/HCPCS: 36415; 80053; 80061; 85027

== ENCOUNTER 2024-10-17 08:23 | Outpatient (REF) | payer BC, SELFPAY ==
--- OUTSIDE RECORDS SUMMARY | 2023-08-19 07:30 | XMS_ITS ---
Author Organization [facility] Address [address] [place] [id number] Care Team Providers Care Yeast Stacker Name Role Phone Vignesh Trevino Primary Care Provider Unavailab Devora Chahal Unavailable [phone] REASON FOR VISIT screening, hx polyps Problems Problem Type SNOMED Code ICD Code Onset Dates Problem Status W/U Status Risk Notes Problem History of polyp of colon (situation) (701970546) Personal history of colonic polyps (Z86.010) Active confirmed Problem Diverticular disease of colon (881602558) Diverticulosis of large intestine without perforation or abscess without bleeding (K57.30) Active confirmed Encounters Encounter Location Date Provider Diagnosis [facility] Outpatient [address] [place] [id number] 08/19/2023 Devora Parekh Encounter for scre ening [...] DEVORA CANALES RDOB: [birth year] (59 yo M)Acc No.[id number]:08/19/2023 COLON WITH MAC Patient: DEVORA HERNANDES Provider: Chichi Parekh MD :1965 A ge:58 Y S ex:Male Date:08/19/2023 Address:[address] [place] [address], Gayla Laurent, [id number] Pcp:Vignesh Trevino Subjective: * Chief Complaints: * [...] 08/19/2023 Generated for Paddy desai/Skylar/Josephsmitting on: 0 10/17/2024 09:18 AM EDT
--- OUTSIDE RECORDS SUMMARY | 2024-10-17 09:18 | XMS_ITS | Clinical Summary ---
Author Organization [facility] Address [address] [place] [address] Phone Care Team Providers Care Ophthalmic Medical Assistant Name Role Phone Vignesh Trevino Primary Care [...] 07/16/2017 ZOSTER VACCINES (1 of 2) 07/16/2017 INFLUENZA VACCINE (#1) 2024 COVID-19 VACCINE (1 - 2023-2 5 season) 2024 CREATININE LEVEL 05/06/2025 05/06/2024 POTASSIUM LEVEL 05/06/2025 [...] EDT) SODIUM 138 133 - 146 mmol/L [facility] CHLORIDE 102 96 - 108 mmol/L [facility] POTASSIUM 3.6 3.3 - 5.1 mmol/L [facility] CO2 26 21 - 35 mmol/L [facility] BUN 20(H) 6 - 19 mg/dL [facility] CREATININE 1.10 0.5 - 1.5 mg/dL [facility] GLUCOSE 166(H) 70 - 99 mg/dL [facility] CALCIUM 9.1 8.4 - 10.3 mg/dL [facility] EGFR 79 >59 mL/min/1.7 3m2 [facility] Comment:Estimated glomerular filtration rate calculated using the CKD-EPI refit equation. ANION GAP 14 10 - 20 mmol/L [facility] Blood 05/06/2024 7:14 PM EDT 05/06/2024 7:25 PM EDT Mary Gavin PA-C LAB BLOOD ORDERABLES Final Result [facility] [address] [place] [address] from Last 3 Months or Most Recently Relevant to Health Maintenance Insurance [facility] PPO EPO [place] [place] [address] [place] [place] [address] [address] [place] [address] PPO EPO [facility] PPO EPO Care Teams Ophthalmic Medical Assistant Relationship Specialty Start Date End Date Vignesh Trevino PA [address] [place] [address] PCP - General Physician Head Mva Reactor Operator 05/06/24 Additional Source Comments The information contained in this document represents components of the legal health record. It is not the complete legal health record.[facility]
--- OUTSIDE RECORDS SUMMARY | 2024-10-17 09:18 | XMS_ITS | Patient Health Record ---
Author Organization [facility] Address [address] [place] [address] Care Team Providers Care Newsroom Intern Name Role Phone Vignesh Trevino Primary Care Provider UnavailDevora Martin Unavailable [phone] Allergies Allergen (clinical drug ingredient) Drug/Non Drug [...] EVERY DAY Oral for 90 Unknown Saw [place] Unknown Immunizations Vaccine Route Administration Date Status [...] Problem Status W/U Status Risk Notes Problem [id number] Encounter for screening for malignant neoplasm of colon (Z12.11) Active confirmed Problem History of adenomatous polyp of colon (721389258) History of adenomatous polyp of colon (Z86.010) Active confirmed Problem History of polyp of colon (situation) (888092270) Personal history of colonic polyps (Z86.010) Active confirmed Problem Diverticular disease of colon (014029549) Diverticulosis of large intestine without perforation or abscess without bleeding (K57.30) Active confirmed Problem [id number] Pre-procedural examination (Z01.818) Active confirmed Encounters Encounter Location Date Provider Diagnosis [facility] [address] [place] [address] 01/18/2024 Devora Parekh Plan Of Treatment Future Test Test Name Order Date COLONOSCOPY 01/13/2018 COLONOSCOPY 05/26/2023 Insurance Providers Payer Name Payer Address Payer Phone Subscriber Number Group Number Insured Name Patient Relationship to Insured Coverage Start Date Coverage End Date [facility] [address] [place], [place] [id number] [phone] [id number] DEVORA CANALES Self - patient is the insured Medical (General) History Medical History History ICD Code Denies [place],DM,CVA,renal disease Sees a urologist for bladder issues [...]
[2024-10-17 14:44] LABS: Anion Gap 10 (12-20); Blood Urea Nitrogen 19 mg/dL (9-16); Calcium 8.7 mg/dL (8.4-10.2); Carbon Dioxide 29 mmol/L (22-29); Chloride 107 mmol/L (96-108); Estimated Glomerular Filt Rate > 60; Potassium 4.3 mmol/L (3.3-5.1); Sodium 142 mmol/L (135-145)
== END 2024-10-17 08:24 | disposition home or self-care (01) ==
LOC: HO.HMGCLDS 08:23
PROVIDERS: PCP Physician Assistant; Visit Provider Physician Assistant
DX: N17.9 Acute kidney failure, unspecified (principal)
CPT/HCPCS: 36415; 80048

== ENCOUNTER 2024-10-18 07:45 | Outpatient (AMB) | payer BC, SELFPAY ==
--- OUTSIDE RECORDS SUMMARY | 2023-08-19 07:30 | XMS_ITS ---
Author Organization [facility] Address [address] [place] [id number] Care Team Providers Care Relations Mgr Name Role Phone Vignesh Trevino Primary Care Provider Unavailab Devora Chahal Unavailable [phone] REASON FOR VISIT screening, hx polyps Problems Problem Type SNOMED Code ICD Code Onset Dates Problem Status W/U Status Risk Notes Problem History of polyp of colon (situation) (898781494) Personal history of colonic polyps (Z86.010) Active confirmed Problem Diverticular disease of colon (334950308) Diverticulosis of large intestine without perforation or abscess without bleeding (K57.30) Active confirmed Encounters Encounter Location Date Provider Diagnosis [facility] Outpatient [address] [place] [id number] 08/19/2023 Devora Parekh Encounter for scre ening colonoscopy Z12.11 ; Personal history of colonic polyps Z86.010 ; Diverticulosis of large intestine without perforation or abscess without bleeding K57.30 and Other hemorrhoids K64.8 Assessments Encounter Date Diagnosis (ICD Code) Assessment Notes Treatment Notes Treatment Clinical Notes Section Notes 08/19/2023 Encounter for screening colonoscopy (ICD-10 - Z12.11) 08/19/2023 Personal history of colonic polyps (ICD-10 - Z86.010) 08/19/2023 Diverticulosis of large intestine without perforation or abscess without bleeding (ICD-10 - K57.30) 08/19/2023 Other hemorrhoids (ICD-10 - K64.8) Plan Of Treatment No Information Progress Notes * DEVORA CANALES RDOB: [birth year] (59 yo M)Acc No.[id number]:08/19/2023 COLON WITH MAC Patient: DEVORA HERNANDES Provider: Chichi Parekh MD :1965 A ge:58 Y S ex:Male Date:08/19/2023 Address:[address] [place] [address], [place]la [place], [id number] Pcp:Vignesh Trevino Subjective: * Chief Complaints: * 1 . Screening, hx polyps. * Medical History: Objective: * Vitals: Assessment: * Assessment: 1. E ncounter for screening colonoscopy - Z12.11 (Primary) 2 . P ersonal history of colonic polyps - Z86.010 3 . D iverticulosis of large intestine without perforation or abscess without bleeding - K57.30 4 . O ther hemorrhoids - K64.8? Plan: * Treatment: * Procedure Codes: 4 5378 DIAGNOSTIC COLONOSCOPY, Modifiers: 33 * Preventive Medicine: NEELIMA Screening: C olonoscopy W as interval between colonoscopies three years or more? Y es, W as last colonoscopy performed three or more years ago? Y es. * * The named appointment provid er may or may not be the originator of this progress note, and it is not deemed complete until electronically signed by the appointment provider. Sign off status: Pending * Provider: Chichi Parekh MD Date: 0 08/19/2023 Generated for Paddy desai/Skylar/Josephsmitting on: 0 10/18/2024 07:49 AM EDT
--- OUTSIDE RECORDS SUMMARY | 2024-10-18 07:49 | XMS_ITS | Patient Health Record ---
Author Organization [facility] Address [address] [place] [address] Care Team Providers Care Cleaning And Maintenance Worker Name Role Phone Vignesh Trevino Primary Care Provider UnavailDevora Martin Unavailable [phone] Allergies Allergen (clinical drug ingredient) Drug/Non Drug [...] EVERY DAY Oral for 90 Unknown Saw [place] Unknown Immunizations Vaccine Route Administration Date Status [...] Problem Status W/U Status Risk Notes Problem 395839444 Encounter for screening for malignant neoplasm of colon (Z12.11) Active confirmed Problem History of adenomatous polyp of colon (142713433) History of adenomatous polyp of colon (Z86.010) Active confirmed Problem History of polyp of colon (situation) (634518691) Personal history of colonic polyps (Z86.010) Active confirmed Problem Diverticular disease of colon (904281558) Diverticulosis of large intestine without perforation or abscess without bleeding (K57.30) Active confirmed Problem 674391438005963 Pre-procedural examination (Z01.818) Active confirmed Encounters Encounter Location Date Provider Diagnosis [facility] [address] [place] [address] 01/18/2024 Devora Parekh Plan Of Treatment Future Test Test Name Order Date COLONOSCOPY 01/13/2018 COLONOSCOPY 05/26/2023 Insurance Providers Payer Name Payer Address Payer Phone Subscriber Number Group Number Insured Name Patient Relationship to Insured Coverage Start Date Coverage End Date [facility] [address] [place], [place] [id number] DEVORA CANALES Self - patient is the insured Medical (General) History Medical History History ICD Code Denies [place],DM,CVA,renal disease Sees a urologist for bladder issues [...]
--- OUTSIDE RECORDS SUMMARY | 2024-10-18 07:49 | XMS_ITS | Clinical Summary ---
Author Organization [facility] Address [address] [place] [address] Phone Care Team Providers Care Bedspread Seamer Name Role Phone Vignesh Trevino Primary Care [...] EDT) SODIUM 138 133 - 146 mmol/L [facility] CHLORIDE 102 96 - 108 mmol/L [facility] POTASSIUM 3.6 3.3 - 5.1 mmol/L [facility] CO2 26 21 - 35 mmol/L [facility] BUN 20(H) 6 - 19 mg/dL [facility] CREATININE 1.10 0.5 - 1.5 mg/dL [facility] GLUCOSE 166(H) 70 - 99 mg/dL [facility] CALCIUM 9.1 8.4 - 10.3 mg/dL [facility] EGFR 79 >59 mL/min/1.7 3m2 [facility] Comment:Estimated glomerular filtration rate calculated using the CKD-EPI refit equation. ANION GAP 14 10 - 20 mmol/L [facility] Blood 05/06/2024 7:14 PM EDT 05/06/2024 7:25 PM EDT Mary Gavin PA-C LAB BLOOD ORDERABLES Final Result [facility] [address] [place] [address] from Last 3 Months or Most Recently Relevant to Health Maintenance Insurance [facility] PPO [place] [address] [place] [address] [address] [place] [address] [address] [place] [address] PPO EPO [facility] PPO EPO Care Teams Bedspread Seamer Relationship Specialty Start Date End Date Vignesh Trevino PA [address] [place] [address] PCP - General Physician Manager Pe 05/06/24 Additional Source Comments The information contained in this document represents components of the legal health record. It is not the complete legal health record.[facility]
--- NOTE | 2024-10-18 08:00 | MHC.PC.OV ---
Vital Signs 10/18/24 08:01 Height 5 ft 10 in Weight 174 lb 4 oz BMI 25.0 BP 120/60 Blood Pressure Location Lt brachial Position Sitting Pulse 61 Pulse Source Pulse Oximeter Temp 97.5 F Temp Source Temporal Artery Scan Pulse Oximetry (%) 97 Oxygen Delivery Method Room Air Intake Visit Reasons: Annual Exam Intake Note: Patient is here today for a physical. Bed Machine Operator Required: No Hotel Superintendent: Not Required per policy Accompanied by: Self / Same As Patient Allergies penicillin V Allergy (Intermediate, Verified 10/18/24 08:10) hives Medication List - Last Reconciled 10/18/24 by Vignesh Trevino PA-C blood pressure monitor As directed bupropion HCl SR (Wellbutrin SR) 200 mg PO DAILY 90 days lisinopril 10 mg PO DAILY lorazepam 0.5 mg PO DAILY 10 days propranolol 10 mg PO BID PRN sildenafil 100 mg PO DAILY 15 days solifenacin 5 mg PO DAILY Tobacco use date assessed: 10/18/24 Dental Screening Dental Screen Date: 04/12/24 HPI Annual Exam HPI Details Patient is a 59 year male here today for routine annual physical.? Patient has a past history significant for hypertension , spastic bladder, generalized anxiety disorder. Concern--> Recently noted impaired renal function. He reported working five consecutive shifts in the sun, leading to dehydration, which was confirmed by impaired kidney function in initial blood work. Upon rehydration, his kidney function normalized, indicating the dehydration was the primary cause of the initial impairment. .. Hypertension:? Blood pressure today in office acceptable.? Continues on lisinopril 10 mg with good effect. .. Hyperlipidemia :? Most recent lipid panel showing good control his total cholesterol and LDL. PLAN: Continue to manage his cholesterol with dietary modifications. Goal LDL is to be below 130 .. Anxiety/ adhd:? ADHD has been fairly well controlled. Now is retired and feels that he does not need any stimulant medication to keep him focused. Still does have anxiety specially when he drives. .. Spastic bladder:? Continues to follow urology in [place]. Recently had his testosterone checked which was 600.. He does understand soda, alcohol intake bothers his bladder and trying to make some adjustments in his diet. Has been stable with the use of solifenacin daily. Bladder spasms worsen with certain beverages. Colorectal cancer screening: Did have colonoscopy [address] Parekh, - repeat 5 years Vaccines: Up-to-date with COVID vaccine, up-to-date with tetanus, up-to-date with flu, needs Shingrex Laboratory Tests 04/08/24 10/12/24 10/17/24 07:04 08:29 08:56 RBC 4.57 L Hgb 14.2 BUN 26 H 19 H Creatinine 1.50 H 1.22 Cholesterol 184 LDL Cholesterol, C alc 104 H 113 H PSA Screen 3.03 Urine Microalbumin < 5.0 PFSH Medical History Bradycardia Achilles rupture Asthma Left groin pain AMEYA (generalized anxiety disorder) Borderline high cholesterol HTN (hypertension) Surgical History History of Achilles tendon repair History of oral surgery History of hip surgery History of surgery on arm H/O hernia repair Family History (Updated 10/18/24 @ 08:15 by Vignesh Trevino PA-C) Mother Lung cancer Father CHF (congestive heart failure) Social History (Updated 10/18/24 @ 08:15 by Vignesh Trevino PA-C) Housing: House Alcohol intake: current Alcohol intake frequency: holidays/special occasions only Alcohol type: beer and wine Patient Tobacco Use Status: Never used Tobacco e-Cigarette/Vaping Use: Currently Using Second Hand Smoke Exposure: No Substance Use Type: Marijuana service: No Current occupational status: retired Cognitive needs: No Hearing needs: No Vision needs: No Questionnaire PHQ-9 Over the last 2 weeks, how often have you been bothered by any of the following problems? 1. Little interest or pleasure in doing things: not at all 2. Feeling down, depressed, or hopeless: not at all 3. Trouble falling or staying asleep, or sleeping too much: not at all 4. Feeling tired or having little energy: not at all 5. Poor appetite or overeating: not at all 6. Feeling bad about yourself - or that you are a failure or have let yourself or your family down: not at all 7. Trouble concentrating on things, such as reading the newspaper or watching television: not at all 8. Moving or speaking so slowly that other people could have noticed. Or the opposite - being so fidgety or restless that you have been moving around a lot more than usual: not at all 9. Thoughts that you would be better off or of hurting yourself in some way: not at all Total score: 0 Depression Screening Interpretation: Negative Depression Screening Done: Yes 21969 - PHQ-9 Billing: Yes Source: Developed by Drs. Wes Dumont, Ruby Negrete, Axel Watts and colleagues, with an educational fortino from [employer]. Thrive Questionnaire Date Thrive assessed: 04/12/24 I am a: Patient What is your living situation today?: I have a steady place to live Within the past 12 months, did the food you bought not last and you didn't have the money to get more?: Never true Within the past 12 months, did you worry whether your food would run out before you got money to buy more?: Never true Do you have trouble paying for medicines?: No Do you have trouble getting transportation to medical appointments?: No Do you have trouble paying your heating and electricity bill?: No Do you have trouble taking care of your child, family member or friend?: No Do you have trouble with day-to-day activities such as bathing, preparing meals, shopping, managing finances, etc.?: No Are you currently unemployed and looking for a job?: No Are you interested in more education?: No Please select the resources that you would like help with: None Currently or been in a relationship where the following occur: No concerns reported THRIVE Score: 0 AUDIT C Alcohol Use Questionnaire (AUDIT-C) 1. How often do you have a drink containing alcohol?: 2-3 times a week Total Score: 3 AMEYA-7 AMB Questionnaire AMEYA-7 Date AMEYA - 7 assessed: 04/12/24 Feeling nervous, anxious, or on edge: 0 = Not at all Not being able to stop or control worryin = Not at all Worrying too much about different things: 0 = Not at all Trouble relaxin = Not at all Being so restless that it is hard to sit still: 0 = Not at all Becoming easily annoyed or irritable: 0 = Not at all Feeling afraid as if something awful might happen: 0 = Not at all Total AMEYA-7 score (0-4 normal; 5-9 mild; 10-14 moderate; 15-21 severe): 0 Source: Developed by Drs. Wes Dumont, Ruby Negrete, Axel Watts and colleagues, with an educational fortino from [employer]. AMEYA-7 Assessment Billing AMEYA-7 Assessment Tool: AMEYA-7 Assessment 23726 Review of Systems Const Denies body aches, Denies chills, Denies excessive sweating, Denies fatigue, Denies fever(s) and Denies headache(s) Eyes Denies blurry vision ENT Denies dysphagia, Denies vertigo, Denies dizziness, Denies headache(s), Denies hearing loss and Denies tinnitus Card Denies chest pain, Denies chest pain with activity, Denies syncope, Denies irregular heart rhythm and Denies dyspnea Resp Denies chest congestion, Denies cough, Denies hemoptysis, Denies dyspnea and Denies wheezing GI Denies abdominal pain, Denies melena, Denies hematochezia, Denies coffee ground emesis, Denies dysphagia, Denies diarrhea, Denies nausea and Denies vomiting Denies difficulty urinating, Denies dysuria, Denies urinary frequency, Denies urinary hesitancy and Denies urinary urgency Musc Denies arthralgias, Denies limited range of motion, Denies muscle cramps and Denies muscle weakness Skin/Breast Denies rash and Denies skin ulcer Neuro Denies Abnormal speech present, Denies confusion, Denies vertigo, Denies dizziness, Denies syncope, Denies headache(s), Denies memory loss and Denies seizure-like activity Psych Denies anxiety, Denies confusion, Denies depression, Denies memory loss, Denies panic attacks and Denies paranoia Endo Denies excessive sweating, Denies fatigue, Denies flushing, Denies polydipsia and Denies polyuria Aller/Immun Denies wheezing Physical exam (Primary Care) Vital Signs: Last Vital Signs Temp 97.5 F 10/18/24 08:01 Pulse 61 10/18/24 08:01 BP 120/60 10/18/24 08:01 Pulse Ox 97 10/18/24 08:01 Oxygen Delivery Method Room Air 10/18/24 08:01 BMI result Body Mass Index 25.0 Tobacco/Smoking Status: Tobacco use Status Tobacco use date assessed 10/18/24 10/18/24 08:07 Patient Tobacco Use Status Never used Tobacco 10/18/24 08:07 Tobacco use type 04/13/24 06:50 e-Cigarette/Vaping Use Currently Using 10/18/24 08:07 PHQ-9: PHQ-9 Score PHQ-9: Total score 0 10/18/24 08:07 Depression Screening Interpretation: Negative Thrive Assessment: Date of Thrive Assessment Date Thrive assessed 04/12/24 10/18/24 08:07 Currently or been in a relationship where the following occur: No concerns reported Const General: cooperative, comfortable, no acute distress, alert and awake; No confusion Orientation/consciousness: oriented to person, oriented to place, patient oriented x3 and No confusion HENMT Head: Yes normocephalic Ears: external ears normal and TM's normal bilaterally Face and sinus: No sinus tenderness Mouth: Normal oral and palatal mucosa present and tongue normal Teeth and gingiva: dentition normal and gingiva normal Throat: Yes posterior oropharynx normal, Yes tonsils normal and Yes uvula midline Eyes Conjunctivae: conjunctivae normal Sclerae: sclerae normal Pupils: Equal, round and reactive pupils present EOM: EOMs intact bilaterally Direct Ophthalmoscopy: No no photophobia Neck Neck: Yes no lymphadenopathy, No tender and Yes no JVD Thyroid: Thyroid normal Carotids: no bruits Chest Chest palpation & inspection: no tenderness Resp Effort & Inspection: normal respiratory effort, no audible wheezes, not labored and no stridor Auscultation: no crackles, no rales, no rhonchi and no wheezes Cardio Jugular venous distension: no JVD Rate: regular rate, not bradycardic and not tachycardic Rhythm: regular rhythm Bruits: no carotid bruits Peripheral pulses: Peripheral pulses 2+ throughout GI Inspection: Yes normal to inspection, No abdominal wall ecchymosis and No visible herniation Palpation (GI): Soft to palpation, nontender, no guarding, not rigid and No hepatosplenomegaly present Auscultation: normoactive bowel sounds General: Yes no CVA tenderness Back/Spine/Pelvis Back: no CVA tenderness and No back tenderness Cervical Spine: cervical ROM normal Thoracic/Lumbar Spine: thoracic and lumbar spine normal to inspection, straight leg raise negative bilaterally, No thoraco-lumbar ROM limited and No lumbar spinal tenderness Skin Lesions: no lesions Rashes: no rashes Wounds: no wounds Neuro General: oriented to person, oriented to place, patient oriented x3, CN's II-XI intact bilaterally and No confusion Cranial nerves: Yes Equal, round and reactive pupils present and Yes Normal accommodation reflex present Cognition (Neuro): normal cognition Speech: No Abnormal speech present Gait exam (Neuro): Normal gait present Motor exam (neuro): 5/5 motor strength present throughout Extrem Right upper extremity: full ROM; no cyanosis Left upper extremity: full ROM; no cyanosis Right lower extremity: no edema Left lower extremity: no edema Psych Appearance: grossly normal Mental Status: mental status grossly normal Affect: normal affect Attitude: cooperative Thought process: Normal thought process present Coding Level of Care Code Est Pt Prev Care 40-64y(20158) Diagnoses Annual physical exam Z00.00 Essential hypertension I10 Hypertension type: essential hypertension Attention deficit hyperactivity disorder (ADHD), predominantly inattentive type F90.0 Hyperactivity presence: present Attention deficit-hyperactivity disorder type: predominantly inattentive Borderline high cholesterol E78.9 Other male erectile dysfunction N52.8 Erectile dysfunction type: due to other cause AMEYA (generalized anxiety disorder) F41.1 Additional Codes PHQ-9 - 46583 - PHQ-9 Billing: Yes ([id number]) AMEYA-7 Assessment Billing - AMEYA-7 Assessment Tool: AMEYA-7 Assessment [id number] ([id number]) Assessment & Plan Assessment & Plan (1) Annual physical exam: Code(s): Z00.00 - Encounter for general adult medical examination without abnormal findings Category: Medical Plan: as per HPI (2) HTN (hypertension): Code(s): I10 - Essential (primary) hypertension Category: Medical Qualifiers: Hypertension type: essential hypertension Qualified Code(s): I10 - Essential (primary) hypertension Plan: Patient's blood pressure acceptable today in office. Will continue lisinopril 10 mg with goal blood pressure to remain below 140/90 (3) ADD (attention deficit disorder): Code(s): F98.8 - Other specified behavioral and emotional disorders with onset usually occurring in childhood and adolescence Category: Medical Qualifiers: Hyperactivity presence: present Attention deficit-hyperactivity disorder type: predominantly inattentive Qualified Code(s): F90.0 - Attention-deficit hyperactivity disorder, predominantly inattentive type Plan: Patient continues on Wellbutrin with decent affect on his attention focus. Was previously on stimulant medications for ADHD though was concerns for his elevated blood pressure. Currently not working a full-time job anymore though does work part-time. (4) Borderline high cholesterol: Code(s): E78.9 - Disorder of lipoprotein metabolism, unspecified Category: Medical Plan: Patient has made lifestyle and dietary changes. His most recent lipid panel showing excellent control of his total cholesterol and LDL. Will continue to follow lipid panel with goal total cholesterol to remain below 200 and LDL to be below 130 (5) Erectile dysfunction: Code(s): N52.9 - Male erectile dysfunction, unspecified Category: Medical Qualifiers: Erectile dysfunction type: due to other cause Qualified Code(s): N52.8 - Other male erectile dysfunction Plan: Continues with the use of sildenafil 100 mg before sexual activity which he reports is only minimally effective. Has a new sexual partner. Will speak with his urologist about some alternative options. (6) AMEYA (generalized anxiety disorder): Code(s): F41.1 - Generalized anxiety disorder Category: Medical Plan: Patient's AMEYA-7 score 0, he feels his anxiety is well controlled with current dose of medication. Rarely has to use lorazepam at this time. Orders: Orders Comprehensive [place]. Panel Fast Today E78.2 - Mixed hyperlipidemia Lipid Panel Today E78.2 - Mixed hyperlipidemia Complete Blood Count no Diff Today E78.2 - Mixed hyperlipidemia Microalbumin, Random (w Creat) Today I10 - Essential (primary) hypertension Prostate Specific Antigen Scr Today I10 - Essential (primary) hypertension, Z12.5 - Encounter for screening for malignant neoplasm of prostate Medications: Refilled sildenafil 100 mg PO DAILY 15 tabs 0RF sexual activity 15 days N52.9 - Male erectile dysfunction, unspecified Patient Instructions: Goal: Blood pressure to remain below 140/90 Barriers: Adherence to physical activity and healthy eating habits
[2024-10-18 08:01] VITALS: BP 120/60; PULSE 61; TEMP 36.4; O2SAT 97; BMI 25.0
== END 2024-10-18 08:33 | disposition home or self-care (01) ==
LOC: HO.HMCH 07:46
PROVIDERS: PCP Physician Assistant; Visit Provider Physician Assistant
DX: Z00.00 Encounter for general adult medical examination without abnormal findings (principal); I10 Essential (primary) hypertension; F90.0 Attention-deficit hyperactivity disorder, predominantly inattentive type; E78.9 Disorder of lipoprotein metabolism, unspecified; N52.8 Other male erectile dysfunction; F41.1 Generalized anxiety disorder

== ENCOUNTER → 2024-10-18 07:45 | Outpatient (BNVA) | payer BC, SELFPAY | PROVIDERS: PCP Physician Assistant; Visit Provider Physician Assistant | DX: Z00.00 Encounter for general adult medical examination without abnormal findings (principal); F41.1 Generalized anxiety disorder; F41.9 Anxiety disorder, unspecified; I10 Essential (primary) hypertension; F90.9 Attention-deficit hyperactivity disorder, unspecified type; F90.0 Attention-deficit hyperactivity disorder, predominantly inattentive type; E78.9 Disorder of lipoprotein metabolism, unspecified; N52.8 Other male erectile dysfunction; E78.2 Mixed hyperlipidemia | CPT/HCPCS: 96127 ==